=== PATIENT | female | born 1950 | race Caucasian/White ===

== ENCOUNTER 2020-07-10 09:08 | Outpatient (CLI) | payer MEDICARE, SELFPAY ==
--- NOTE | 2020-07-10 09:41 | ECG_ITS ---
Measurements Intervals [place] Rate: 68 P: 86 VA: 148 QRS: 84 QRSD: 97 T: 69 QT: 409 QTc: 435 Interpretive Statements SINUS RHYTHM INCOMPLETE RIGHT BUNDLE BRANCH BLOCK BASELINE ARTIFACT- II, III BORDERLINE ECG Electronically Signed On 07-10-2020 10:03:17 CDT by Chaparro Salcedo D.O.
== END 2020-07-10 09:09 | disposition home or self-care (01) ==
PROVIDERS: PCP Family Medicine; Visit Provider Family Medicine
DX: R07.89 Other chest pain (principal)
CPT/HCPCS: 93005

== ENCOUNTER 2022-04-15 18:04 | Emergency (ER) | payer MEDICARE, SELFPAY ==
--- NOTE | ~2022-04-15 | CT_ITS ---
EXAMINATION: CT abdomen pelvis wo con DATE: 04/15/2022 19:14 INDICATION: urinary pain, flank pain TECHNIQUE: Computed tomography (CT) of the abdomen and pelvis was performed without intravenous contr ast. Automated exposure control and iterative reconstruction technique were employed. The dose-length product was 158.80 mGy-cm. COMPARISON: 07/06/2008. FINDINGS: Lower thorax: Senescent and emphysematous changes in the lungs. Coronary artery calcifications/stenti ng. Liver: Normal. Biliary/Gallbladder: Gallbladder is absent. No bile duct dilation. Pancreas: No mass or duct dilation. Spleen: Normal. Adrenals:Left adrenal adenoma. Kidneys: Left renal atrophy, with nonobstructive calcification. Right kidney is normal. GI tract: No small or large bowel dilation. Appendix not visualized. Diverticulosis without diverticu litis. Mesentery/Peritoneum: No ascites, mass, or free air. Paucity of abdominal fat. Retroperitoneum: No mass. Severe atherosclerotic calcification of the abdomen including likely severe stenosis in the proximal abdominal aorta. Aortobifemoral grafts. Pelvis: No bladder wall thickening. Uterus is absent or atrophic. Distal ureters could not be traced in their entirety. Soft Tissues: Induration and skin thinning posterior the sacrum, otherwise the soft tissues tissues a nd body wall unremarkable. Bones: Vertebral body cement at L3. Lumbar scoliosis. Multilevel osteoporotic type endplate deformit ies and severe degenerative changes in the lumbar spine. IMPRESSION: Likely severe proximal aortic atherosclerotic stenosis. No definite evidence of obstructive uropathy, however the distal ureters could not be traced in their entirety and there are multiple confounding pelvic vascular calcifications. Appendix not visualized, correlate with history of appendectomy. Possible sacral decubitus ulcer. Reviewed, dictated and finalized at location K. IMPRESSION: Likely severe proximal aortic atherosclerotic stenosis. No definite evidence of obstructive uropathy, however the distal ureters could not be traced in their entirety and there are multiple confounding pelvic vascu lar calcifications. Appendix not visualized, correlate with history of appendec quyen. Possible sacral decubitus ulcer.
[2022-04-15 18:08] VITALS: BP 144/85; PULSE 101; RESP 18; TEMP 36.4; O2SAT 100
[2022-04-15 18:28] LABS: Appearance Urine Clear (Clear); Bilirubin Urine Negative (Negative); Blood Urine 1+ (Negative); Color Urine Yellow (Yellow); Glucose Urine UA Negative (Negative); Ketones Urine Negative (Negative); Leukocyte Esterase Ur 1+ LEU/UL (Negative); Nitrate Urine Negative (Negative); Protein Urine Negative (Negative); Urobilinogen Urine 0.2 mg/dL (<2.0); pH Urine 5.5 (5.0-9.0)
[2022-04-15 18:33] LABS: Squamous Epithelial Cell Urine Rare /hpf (Few)
[2022-04-15 18:34] LABS: Add Urine Microscopic? YES
--- NOTE | 2022-04-15 19:00 | ED.FEMALEGU ---
HPI - Female Genitourinary General Chief complaint: Urogenital-Female Stated complaint: back pain/increased urination Time Seen by Provider: 04/15/22 18:54 History of Present Illness HPI Narrative: 71-year-old female presenting to the emergency department for evaluation of increased urinary frequency and some urinary burning. Patient was diagnosed with a urinary tract infection approximately 2 weeks ago and on Friday completed her antibiotic. Patient is unsure of what antibiotic she was taking. Patient does report some associated nausea. Patient denies any flank pain. Patient denies any chest pain or shortness of breath. Related Data Home Medications Medication Instructions Recorded Confirmed calcium citrate 200 mg (950 mg) 200 mg PO DAILY 09/28/19 01/15/22 tablet multivit with 1 tablet PO DAILY 09/28/19 01/15/22 bofpuaij-[id number]-AI-lutein 8 mg iron-400 mcg-300 mcg tablet (Centrum Silver Women) Allergies Allergy/AdvReac Type Severity Reaction Status Date / Time No Known Allergies Allergy Mild Verified 04/15/22 19:02 Review of Systems Review of Systems: CONSTITUTIONAL: Denies fever, chills, or sweats. EYES: Denies visual changes, redness, or discharge. ENT: Denies rhinorrhea, congestion, sore throat, or otalgia. CARDIOVASCULAR: Denies chest pain, palpitations, or edema. RESPIRATORY: Denies cough or dyspnea. GASTROINTESTINAL: Denies abdominal pain, nausea, vomiting, or diarrhea. GENITOURINARY: See HPI SKIN: Denies rash or itching. MUSCULOSKELETAL: Denies back pain, joint pain, or myalgia. NEUROLOGIC: Denies headache, numbness, or weakness. [facility] Past Medical History Medical History (Updated 04/16/22 @ 00:00 by Background Daemon) Abnormal fasting glucose Acute non-recurrent maxillary sinusitis Atypical chest pain GERD (gastroesophageal reflux disease) Insomnia Microscopic hematuria Mixed hyperlipidemia Poison alivia dermatitis Rhinitis Underweight due to inadequate caloric intake UTI (urinary tract infection) Family History Family History Father Family history of cardiovascular disease, Onset Age: 70 Mother Family history of malignant neoplasm, Onset Age: 60 Grandparent Family history of malignant neoplasm Social History Social History Smoking packs per day: 0.5 Smoking cigarettes per day: 10.0 Years smoked: 50 Smoking pack-years: 25.00 Smoking status: Current every day smoker Alcohol intake: never Substance use: never Substance use type: does not use Exam Narrative: APPEARANCE: Well appearing, no pain, no distress, well-nourished. HEAD: normocephalic, atraumatic. EYES: PERRLA/EOMI, conjunctivae clear. NOSE: Normal no drainage NECK: Supple. No adenopathy, no masses. RESPIRATORY: Airway patent, respirations nonlabored. Clear to auscultation bilaterally, no rales, rhonchi, wheezing. CARDIOVASCULAR: Regular rate and rhythm without murmurs rubs or gallops. ABDOMINAL: Soft, nontender, nondistended, normal bowel sounds MUSCULOSKELETAL: Moves all extremities. Strength/ROM intact, No edema, No calf tenderness. NEURO: Alert. Cranial nerves II through XII intact. Grossly intact SKIN: Warm, dry. Normal Color Course Course Emergency Course: Patient's daughter called the pharmacy and did confirm patient had been on Macrobid for 1 week from 04/05-04/12. Patient was treated with 1 g of IV Rocephin and was transitioned to Keflex for discharge home. Patient and family were updated on the results of the work-up and plan for treatment. All questions and concerns were addressed. Patient was well-appearing at time of discharge from the emergency department. CT scan showed no ureteral calculi. Patient's abdomen is soft and nontender, no concern for acute appendicitis at this time. Vital Signs Vital signs: Vital Signs Temperature 97.6 F 04/15/22 18:0
[2022-04-15 19:14] LABS: Basophils Percent Auto 0.2 % (0.2-1.2); Eosinophils Absolute Auto 0.6 K/mm3 (0-0.3); Eosinophils Percent Auto 6.2 % (0-4.4); Hematocrit 36.3 % (37.0-47.0); Hemoglobin 11.2 g/dL (12.0-15.0); Immature Granulocyte Absolute 0.04 K/mm3 (0.00-0.031); Immature Granulocyte Percent A 0.4 % (0-0.5); Lymphocytes Absolute Auto 2.35 K/mm3 (0.9-3.2); Lymphocytes Percent Auto 24.7 % (18.3-44.2); Mean Corpuscular HGB Conc 30.9 g/dl (32-36); Mean Corpuscular Hemoglobin 31.6 pg (26-34); Mean Corpuscular Volume 102.5 fl (80-100); Mean Platelet Volume 8.6 fl (7.4-10.4); Monocytes Absolute Auto 0.8 K/mm3 (0.1-0.6); Monocytes Percent Auto 8.1 % (2.6-8.5); Neutrophils Absolute Auto 5.7 K/mm3 (1.3-6.7); Neutrophils Percent Auto 60.4 % (45.5-73.1); Platelet Count Result 435 k/mm3 (150-375); Red Blood Count 3.54 M/mm3 (4.2-5.4); Red Cell Distribution Width 13.1 % (11.5-14.5); White Blood Count 9.5 K/mm3 (4.5-10.0)
[2022-04-15 19:25] LABS: Alanine Aminotransferase 19 U/L (6-35); Albumin Level 4.5 g/dL (3.5-5.1); Alkaline Phosphatase 146 U/L (38-126); Anion Gap 10 mmol/L (8-16); Aspartate Amino Transferase 25 U/L (14-36); Bilirubin,Total < 0.1 mg/dL (0.2-1.3); Blood Urea Nitrogen 29 mg/dL (7-17); Calcium 10.1 mg/dL (8.4-10.2); Carbon Dioxide 20 mmol/L (22-30); Chloride 110 mmol/L (98-107); Estimated CRCL calculation 34 ml/min; Estimated Glomerular Filt Rate > 60; Glucose 113 mg/dL (65-110); Potassium 4.3 mmol/L (3.4-5.0); Sodium 140 mmol/L (137-145)
[2022-04-15 20:51] VITALS: BP 114/70; PULSE 72; RESP 18; O2SAT 100
== END 2022-04-15 20:53 | disposition home or self-care (01) ==
PROVIDERS: Emergency Medicine; Emergency Provider Emergency Medicine; PCP Family Medicine
DX: N39.0 Urinary tract infection, site not specified (principal); E78.2 Mixed hyperlipidemia; K21.9 Gastro-esophageal reflux disease without esophagitis; R63.6 Underweight; Z68.1 Body mass index [BMI] 19.9 or less, adult; F17.210 Nicotine dependence, cigarettes, uncomplicated
CPT/HCPCS: 36415; 74176; 80053; 81001; 83605; 85025; 87086; 87088; 96365; 99284; J0696

== ENCOUNTER 2023-12-03 12:12 | Outpatient (CLI) | payer MEDICARE, SELFPAY ==
--- NOTE | 2023-12-03 12:38 | ECG_ITS ---
Measurements Intervals [place] Rate: 95 P: 83 ME: 131 QRS: 79 QRSD: 89 T: 56 QT: 352 QTc: 443 Interpretive Statements SINUS RHYTHM WITH SINUS ARRHYTHMIA RIGHT ATRIAL ENLARGEMENT [0.3mV P WAVE] LEFT ATRIAL ENLARGEMENT [-0.15mV P WAVE IN V1/V2] INCOMPLETE RIGHT BUNDLE BRANCH BLOCK COMPARED TO ECG 07/10/2020 09:51:23 SINUS ARRHYTHMIA NOW PRESENT Electronically Signed On 12-03-2023 15:38:28 [employer] by Kathy Pollock M.D.
[2023-12-03 12:43] LABS: Basophils Percent Auto 0.3 % (0.2-1.2); Eosinophils Percent Auto 0.3 % (0-4.4); Hematocrit 38.5 % (37.0-47.0); Hemoglobin 11.9 g/dL (12.0-15.0); Immature Granulocyte Absolute 0.03 K/mm3 (0.00-0.031); Immature Granulocyte Percent A 0.3 % (0-0.5); Lymphocytes Absolute Auto 1.48 K/mm3 (0.9-3.2); Lymphocytes Percent Auto 17.2 % (18.3-44.2); Mean Corpuscular HGB Conc 30.9 g/dl (32-36); Mean Corpuscular Hemoglobin 30.5 pg (26-34); Mean Corpuscular Volume 98.7 fl (80-100); Mean Platelet Volume 8.4 fl (7.4-10.4); Monocytes Absolute Auto 0.4 K/mm3 (0.1-0.6); Monocytes Percent Auto 5.1 % (2.6-8.5); Neutrophils Absolute Auto 6.6 K/mm3 (1.3-6.7); Neutrophils Percent Auto 76.8 % (45.5-73.1); Platelet Count Result 523 k/mm3 (150-375); Red Cell Distribution Width 14.1 % (11.5-14.5); White Blood Count 8.6 K/mm3 (4.5-10.0)
[2023-12-03 12:50] LABS: Appearance Urine Clear (Clear); Bacteria Urine None Seen /hpf; Bilirubin Urine Negative (Negative); Blood Urine Negative (Negative); Color Urine Yellow (Yellow); Glucose Urine UA Negative (Negative); Ketones Urine Negative (Negative); Leukocyte Esterase Ur Negative LEU/UL (NEGATIVE); Nitrate Urine Negative (Negative); Non Pathogenic Casts 0-2; Protein Urine 1+ mg/dL (Negative); Specific Grav Ur 1.017 (1.001-1.035); Squamous Epithelial Cell Urine None seen /hpf (Few); Urobilinogen Urine 0.2 mg/dL (<2.0); WBC Urine 0-5 /hpf (0-3); pH Urine 5.5 (5.0-9.0)
[2023-12-03 12:55] LABS: Alanine Aminotransferase 17 U/L (6-35); Albumin Level 3.9 g/dL (3.5-5.1); Alkaline Phosphatase 142 U/L (38-126); Anion Gap 8 mmol/L (8-16); Aspartate Amino Transferase 25 U/L (14-36); Bilirubin,Total 0.3 mg/dL (0.2-1.3); Blood Urea Nitrogen 14 mg/dL (7-17); Calcium 9.8 mg/dL (8.4-10.2); Carbon Dioxide 25 mmol/L (22-30); Chloride 104 mmol/L (98-107); Cholesterol 186 mg/dL (0-200); Estimated Glomerular Filt Rate > 60; Glucose 104 mg/dL (65-110); HDL Direct 40 mg/dL; Magnesium 1.9 mg/dL (1.6-2.3); Potassium 4.3 mmol/L (3.4-5.0); Sodium 137 mmol/L (137-145); Triglycerides 146 mg/dL (<150)
[2023-12-03 13:04] LABS: Add Urine Microscopic? YES
[2023-12-03 13:08] LABS: LDL Cholesterol Direct 92 mg/dL
[2023-12-03 13:11] LABS: Iron 43 ug/dL (37-170)
[2023-12-03 13:22] LABS: Percent Iron Saturation 17 % (20-50)
[2023-12-03 13:27] LABS: Free T4 Free Thyroxine 1.21 ng/mL (0.78-2.19)
[2023-12-03 13:28] LABS: Total Triiodothyronine (T3) 1.21 NG/ML (0.97-1.69)
[2023-12-03 14:05] LABS: Folic Acid > 20.0 ng/mL (2.76->20)
[2023-12-03 14:55] LABS: Hemoglobin A1C 5.7 % (<5.7)
== END 2023-12-03 12:13 | disposition home or self-care (01) ==
PROVIDERS: PCP Family Medicine; Visit Provider Family Medicine
DX: R93.1 Abnormal findings on diagnostic imaging of heart and coronary circulation (principal); I49.9 Cardiac arrhythmia, unspecified; I45.10 Unspecified right bundle-branch block; R73.01 Impaired fasting glucose; D64.9 Anemia, unspecified; R31.29 Other microscopic hematuria; E78.2 Mixed hyperlipidemia
CPT/HCPCS: 36415; 80048; 80061; 80076; 81001; 82607; 82728; 82746; 83036; 83540; 83550; 83735; 84439; 84443; 84480; 85025; 87086; 93005

== ENCOUNTER 2024-07-19 15:36 | Emergency (ER) | payer MEDICARE, SELFPAY ==
[2024-07-19 15:44] VITALS: BP 172/76; PULSE 111; RESP 20; TEMP 36.6; O2SAT 99
[2024-07-19 16:27] VITALS: BP 172/93; PULSE 87; RESP 21; O2SAT 100
[2024-07-19 17:01] LABS: Basophils Percent Auto 0.2 % (0.2-1.2); Eosinophils Percent Auto 0.2 % (0-4.4); Hematocrit 39.9 % (37.0-47.0); Hemoglobin 12.6 g/dL (12.0-15.0); Immature Granulocyte Absolute 0.03 K/mm3 (0.00-0.031); Immature Granulocyte Percent A 0.3 % (0-0.5); Lymphocytes Absolute Auto 1.16 K/mm3 (0.9-3.2); Lymphocytes Percent Auto 11.8 % (18.3-44.2); Mean Corpuscular HGB Conc 31.6 g/dl (32-36); Mean Corpuscular Hemoglobin 31.1 pg (26-34); Mean Corpuscular Volume 98.5 fl (80-100); Mean Platelet Volume 8.9 fl (7.4-10.4); Monocytes Absolute Auto 0.5 K/mm3 (0.1-0.6); Monocytes Percent Auto 5.3 % (2.6-8.5); Neutrophils Absolute Auto 8.1 K/mm3 (1.3-6.7); Neutrophils Percent Auto 82.2 % (45.5-73.1); Platelet Count Result 363 k/mm3 (150-375); Red Blood Count 4.05 M/mm3 (4.2-5.4); Red Cell Distribution Width 12.5 % (11.5-14.5); White Blood Count 9.8 K/mm3 (4.5-10.0)
[2024-07-19 17:15] LABS: Alanine Aminotransferase 18 U/L (6-35); Albumin Level 4.5 g/dL (3.5-5.1); Alkaline Phosphatase 117 U/L (38-126); Anion Gap 12 mmol/L (4-12); Aspartate Amino Transferase 27 U/L (14-36); Bilirubin,Total 0.1 mg/dL (0.2-1.3); Blood Urea Nitrogen 18 mg/dL (7-17); Carbon Dioxide 22 mmol/L (22-30); Chloride 105 mmol/L (98-107); Estimated CRCL calculation 43 ml/min; Estimated Glomerular Filt Rate > 60; Glucose 117 mg/dL (65-110); Potassium 4.5 mmol/L (3.4-5.0); Sodium 139 mmol/L (137-145)
--- NOTE | 2024-07-19 17:46 | ED.GENADULT ---
HPI - General Adult General Chief complaint: Urogenital-Female Stated complaint: increased urinary freq since 07/16, dizzy Time Seen by Provider: 07/19/24 16:24 Source: patient Mode of arrival: ambulatory Limitations: no limitations History of Present Illness HPI narrative: This is a 74-year-old female, with past medical history of hypertension abdominal aortic atherosclerosis and GERD, who presents emergency department complaining of vertigo. The patient states this is been going on for the past 4 days. This is associated with upper respiratory congestion and popping sensations in the right ear. She denies associated ringing in the ears or loss of hearing. She states the vertigo occurs with sitting up or rapid change in head position. She denies weakness, numbness, change/loss of vision, chest pain or shortness of breath. She also complains of difficulty with urination. She has no other complaints at this time. Related Data Home Medications Medication Instructions Recorded Confirmed calcium citrate 200 mg (950 mg) 200 mg PO DAILY 09/28/19 05/19/24 tablet chnswmnh-cfhh-nfli 8 mg-folic 400 1 tablet PO DAILY 09/28/19 05/19/24 mcg-K 50 mcg-lutein 300 mcg tablet (Centrum Silver Women) Allergies Allergy/AdvReac Type Severity Reaction Status Date / Time No Known Allergies Allergy Mild Verified 07/19/24 15:37 Review of Systems Review of Systems: All systems reviewed & are unremarkable except as noted in HPI and below PMFSH Past Medical History Medical History Abdominal aortic atherosclerosis (~2021) severe proximal aortic atherosclerotic disease with stenosis on CT of the abdomen ER 04/15/2022. Abnormal fasting glucose Fasting glucose 102 with hemoglobin A1c 4.8 on 04/04/2022. Fasting glucose 104 on 12/03/2023. Acute non-recurrent maxillary sinusitis Anemia hemoglobin 11.4 on 04/04/2022. Hemoglobin 11.3 on 04/15/2022. Vitamin B12 was 1200 with folic acid greater than 24 and iron 47. hemoglobin 11.9 with iron 43 on 12/03/2023. Arrhythmia (~12/03/23) irregularly irregular rhythm on 12/03/2023. Atypical chest pain Chronic depression GERD (gastroesophageal reflux disease) Insomnia Microscopic hematuria Mixed hyperlipidemia Total cholesterol 166, HDL 40, triglycerides 146 and LDL 101 with AST 19 and ALT 13 on 04/04/2022 with thyroid function normal with TSH 1.98 and free T4 1.3. Total cholesterol 186 with triglycerides 146 and HDL 40 on 12/03/2023. Peripheral vascular disease of lower extremity (~2007) history of stents distal aorta to the common iliac bilaterally 11/09/2007. Poison alivia dermatitis Rhinitis Sinus arrhythmia (~12/03/23) no atrial fibrillation on EKG 12/03/2023. Sinus rhythm with sinus arrhythmia. Underweight due to inadequate caloric intake UTI (urinary tract infection) Family History Family History Father Family history of cardiovascular disease, Onset Age: 70 Mother Family history of malignant neoplasm, Onset Age: 60 Grandparent Family history of malignant neoplasm Social History Social History Smoking packs per day: 0.5 Smoking cigarettes per day: 10.0 Years smoked: 50 Smoking pack-years: 25.00 Smoking status: Current every day smoker Alcohol intake: never Substance use: never Substance use type: does not use Current Housing: Decline to Answer Concerned About Future Housing: Decline to Answer Difficulty Paying Gas/Electric Bills: Decline to Answer Difficulty Paying for Meds: Decline to Answer Currently Unemployed: Decline to Answer Education: Decline to Answer Difficulty w/ Childcare or Family Care: Decline to Answer Exam Narrative: GENERAL: Well-developed, well-nourished, and in no acute distress. HEAD: Normocephalic, atraumatic. EYES: PERRLA and EOMI.
[2024-07-19] MEDS: MECLIZINE HCL 25 MG TABLET 50 MG PO (18:02)
[2024-07-19 18:03] LABS: Add Urine Microscopic? YES; Appearance Urine Clear (Clear); Bacteria Urine None Seen /hpf; Bilirubin Urine Negative (Negative); Blood Urine 1+ (Negative); Color Urine Yellow (Yellow); Glucose Urine UA Negative (Negative); Ketones Urine Negative (Negative); Leukocyte Esterase Ur Negative LEU/UL (Negative); Nitrate Urine Negative (Negative); Non Pathogenic Casts 0-2; Protein Urine 1+ mg/dL (Negative); Specific Grav Ur 1.011 (1.001-1.035); Squamous Epithelial Cell Urine None Seen /hpf (Few); Urobilinogen Urine 0.2 mg/dL (<2.0); WBC Urine 0-5 /hpf (0-3)
[2024-07-19 18:57] VITALS: BP 164/87; PULSE 82; RESP 18; TEMP 36.7; O2SAT 100
== END 2024-07-19 18:41 | disposition home or self-care (01) ==
PROVIDERS: Physician Assistant; Emergency Provider Preventive Medicine Aerospace Medicine; PCP Family Medicine
DX: J06.9 Acute upper respiratory infection, unspecified (principal); B34.9 Viral infection, unspecified; H81.10 Benign paroxysmal vertigo, unspecified ear; F17.210 Nicotine dependence, cigarettes, uncomplicated; I25.10 Atherosclerotic heart disease of native coronary artery without angina pectoris; D64.9 Anemia, unspecified; F32.A Depression, unspecified; K21.9 Gastro-esophageal reflux disease without esophagitis; E78.5 Hyperlipidemia, unspecified
CPT/HCPCS: 36415; 80053; 81001; 85025; 99283; A9270

== ENCOUNTER 2024-09-21 12:51 | Observation (INO) | payer MEDICARE, SELFPAY ==
[2024-09-21] VITALS (7 sets, daily range): BP systolic 113–143; BP diastolic 64–76; PULSE 81–95; RESP 16–20; TEMP 36.4–36.9; O2SAT 95–100; BMI 15.7
--- NOTE | ~2024-09-21 | CT_ITS ---
CT abdomen pelvis w con Ordering provider: Magdiel Quach MD History: 74 years Female with . left mid abdominal pain . Comparison: April 15, 2022 Technique: CT abdomen and pelvis with IV and without oral contrast. Automated exposure control and it erative reconstruction technique were employed. The dose-length product was 160.14 mGy-cm. 100 mL Omn ipaque 350 was given IV. The The Findings: VISUALIZED LOWER CHEST: Emphysematous changes. UPPER ABDOMINAL ORGANS: Liver: Normal. Gallbladder: Status post cholecystectomy. Spleen: Normal. Stomach/duodenum: Normal. Pancreas: Atrophic changes. Slight dilatation of the proximal pancreatic duct. Adrenals: Adenoma seen in the left adrenal gland measuring 2.6 x 1.8 cm. Kidneys: Atrophic left kidney with small stone is seen inferiorly. PELVIC ORGANS: The bladder is normal. Uterus: Normal. BOWEL AND MESENTERY: Colon: No evidence of diverticulitis. Fecal material is loaded in small bowel loops in the left side of the abdomen with thickened wall suggestive of colitis or enteritis. Ischemic changes cannot be exc luded. Appendix is not well demonstrated. Small Bowel: Normal. No obstruction. Peritoneum/mesentery: No free air or free fluid. No mesenteric lymphadenopathy. RETROPERITONEUM: Severe atherosclerotic changes with occlusion of the infrarenal aorta. Atherosclero tic changes at the origin of the renal artery on the right side is also noted. Stents are seen in the right and left iliac arteries.. No retroperitoneal lymphadenopathy. MUSCULOSKELETAL: Superficial soft tissues: The superficial soft tissues are normal. Bones: Age appropriate degenerative changes of the spine. Bilateral sacroiliacs. Levoscoliosis. Verte broplasty in L3. Compression fracture most likely old seen in L4 and L1. Atrophic psoas muscles is no vinny. IMPRESSION: 1. No flow seen in the aorta suggestive of occlusion below the renal arteries. 2. Fecal material loaded in the bowel in the left side of the abdomen most likely in the colon with thickened wall which may indicate colitis. Ischemia cannot be excluded. Clinical correlation and foll ow-up advised. 3. Atrophic left kidney. 4. Adrenal mass in the left adrenal gland. Further evaluation with CT adrenal protocol or MRI is adv ised. Physician: Magdiel Quach MD was notified with the result of the patient at 4:57 PM on August [id number] Reviewed, dictated and finalized at location A. [employer] IMPRESSION: 1. No flow seen in the aorta suggestive of occlusion below the renal arteries. 2. Fecal material loaded in the bowel in the left side of the abdomen most lik nell in the colon with thickened wall which may indicate colitis. Ischemia canno t be excluded. Clinical correlation and follow-up advised. 3. Atrophic left kidney. 4. Adrenal mass in the left adrenal gland. Further evaluation with CT adrenal protocol or MRI is advised. Physician: Magdiel Quach MD was notified with the result of the patient at 4:57 PM on September 21, 2024
--- NOTE | ~2024-09-21 | XR_ITS ---
EXAMINATION: XR enema water soluble DATE: 09/22/2024 11:25 INDICATION: Stool impaction. TECHNIQUE: A scada operator radiograph was obtained. A catheter was inserted into the patient's rectum. Contra st was infused by gravity. Fluoroscopic spot images and conventional radiographs were obtained. Fluor oscopy exposure time was 0.3 minutes. The total number of images was 20. COMPARISON: CT abdomen and pelvis 09/21/2024 FINDINGS: There is a large volume of stool in the descending and transverse colon, which are distende d. The sigmoid colon is decompressed. There is no stricture. There are stents in the common iliac art eries. There are changes of vertebroplasty at one level. Surgical clips in the right upper quadrant a re likely from cholecystectomy. IMPRESSION: 1. Large volume of stool in the descending and transverse colon with distention of the colon. No stri cture. Reviewed, dictated and finalized at location A. KISS SETTER IMPRESSION: 1. Large volume of stool in the descending and transverse colon with distention of the colon. No stricture.
[2024-09-21] MEDS: SODIUM CHLORIDE 0.9% IV 1,000 ML 999 ML IV CONT (15:10)
[2024-09-21] MEDS: METHYLNALTREXONE 12 MG/0.6 ML VIAL SUB-Q (15:13)
[2024-09-21 15:29] LABS: Basophils Percent Auto 0.2 % (0.2-1.2); Eosinophils Percent Auto 0.2 % (0-4.4); Hemoglobin 12.2 g/dL (12.0-15.0); Immature Granulocyte Percent A 0.6 % (0-0.5); Lymphocytes Absolute Auto 1.62 K/mm3 (0.9-3.2); Lymphocytes Percent Auto 9.2 % (18.3-44.2); Mean Corpuscular Hemoglobin 31.7 pg (26-34); Mean Corpuscular Volume 96.1 fl (80-100); Mean Platelet Volume 8.8 fl (7.4-10.4); Monocytes Absolute Auto 1.3 K/mm3 (0.1-0.6); Monocytes Percent Auto 7.2 % (2.6-8.5); Neutrophils Absolute Auto 14.5 K/mm3 (1.3-6.7); Neutrophils Percent Auto 82.6 % (45.5-73.1); Platelet Count Result 528 k/mm3 (150-375); Red Blood Count 3.85 M/mm3 (4.2-5.4); White Blood Count 17.6 K/mm3 (4.5-10.0)
[2024-09-21 15:39] LABS: Alanine Aminotransferase 11 U/L (6-35); Alkaline Phosphatase 136 U/L (38-126); Anion Gap 9 mmol/L (4-12); Aspartate Amino Transferase 24 U/L (14-36); Bilirubin,Total 0.6 mg/dL (0.2-1.3); Blood Urea Nitrogen 23 mg/dL (7-17); Calcium 9.4 mg/dL (8.4-10.2); Carbon Dioxide 21 mmol/L (22-30); Chloride 107 mmol/L (98-107); Estimated CRCL calculation 38 ml/min; Estimated Glomerular Filt Rate > 60; Glucose 105 mg/dL (65-110); Lipase 86 U/L (23-300); Potassium 3.8 mmol/L (3.4-5.0); Sodium 137 mmol/L (137-145)
[2024-09-21] MEDS: MORPHINE SULFATE (*CRX) 4 MG/ML INJ IV PUSH ×2 (17:23→23:06)
--- NOTE | 2024-09-21 17:23 | ED.GENADULT ---
HPI - General Adult General Chief complaint: Abdominal Pain Stated complaint: constipation, abd pain Time Seen by Provider: 09/21/24 13:50 History of Present Illness HPI narrative: Patient is a 74-year-old female who presents ER with reports of abdominal pain. Left-sided and sharp. Worse with movement. Associated with the fact that she has not had a bowel movement in 20 days. she has been able to pass gas. She is not vomiting but has discomfort when she eats. She takes oxycodone chronically for chronic back pain. She has tried stool softeners without improvement. patient has been inserting her fingers and her bottom to self evacuate stool without success. Related Data Home Medications Medication Instructions Recorded Confirmed calcium citrate 200 mg PO DAILY 09/28/19 09/21/24 wijmsdpp-qbwh-bqxg 8 mg-folic 400 1 tablet PO DAILY 09/28/19 09/21/24 mcg-K 50 mcg-lutein 300 mcg tablet (Centrum Silver Women) Allergies Allergy/AdvReac Type Severity Reaction Status Date / Time No Known Allergies Allergy Mild Verified 09/21/24 17:24 Review of Systems Review of Systems: All systems reviewed & are unremarkable except as noted in HPI and below Constitutional: Constitutional: Reports no additional constitutional complaints ENT: Reports system reviewed and no additional complaints, except as documented Cardiovascular: Cardiovascular: Reports no additional cardiovascular complaints Respiratory: Respiratory: Reports no additional respiratory complaints Gastrointestinal: Gastrointestinal: Reports abdominal pain, Reports constipation, Denies nausea and Denies vomiting Musculoskeletal: Musculoskeletal: Reports no additional musculoskeletal complaints [facility] Past Medical History Medical History (Updated 09/21/24 @ 20:44 by Kate Gupta DO) Abdominal aortic atherosclerosis (~2021) severe proximal aortic atherosclerotic disease with stenosis on CT of the abdomen ER 04/15/2022. Abnormal fasting glucose Fasting glucose 102 with hemoglobin A1c 4.8 on 04/04/2022. Fasting glucose 104 on 12/03/2023. Age-related osteoporosis without current pathological fracture Anemia hemoglobin 11.4 on 04/04/2022. Hemoglobin 11.3 on 04/15/2022. Vitamin B12 was 1200 with folic acid greater than 24 and iron 47. hemoglobin 11.9 with iron 43 on 12/03/2023. Arrhythmia (~12/03/23) irregularly irregular rhythm on 12/03/2023. Chronic bilateral low back pain Chronic depression Chronic obstructive pulmonary disease, unspecified Essential hypertension GERD (gastroesophageal reflux disease) Insomnia Microscopic hematuria Mixed hyperlipidemia Total cholesterol 166, HDL 40, triglycerides 146 and LDL 101 with AST 19 and ALT 13 on 04/04/2022 with thyroid function normal with TSH 1.98 and free T4 1.3. Total cholesterol 186 with triglycerides 146 and HDL 40 on 12/03/2023. Peripheral vascular disease of lower extremity (~2007) history of stents distal aorta to the common iliac bilaterally 11/09/2007. Rhinitis Sinus arrhythmia (~12/03/23) no atrial fibrillation on EKG 12/03/2023. Sinus rhythm with sinus arrhythmia. Sinusitis Underweight due to inadequate caloric intake UTI (urinary tract infection) Vertigo Surgical History Surgical History (Updated 09/21/24 @ 20:42 by Kate Gupta DO) Hx of cholecystectomy S/P peripheral artery angioplasty with stent placement Family History Family History Father Family history of cardiovascular disease, Onset Age: 70 Mother Family history of malignant neoplasm, Onset Age: 60 Grandparent Family history of malignant neoplasm Social History Social History Smoking packs per day: 0.5 Smoking cigarettes per day: 10.0 Years smoked: 60 Smoking pack-years: 30.00 Smoking status: Current every day smoker Alcohol intake: never Substance use: never Substance use type: does not use Do You Feel Safe in your Home?: Yes Lack of Transportation: No Lack of Food: Never True Current Housing: Decline to Answer Concerned About Future Housing: Decline to Answer Difficulty Paying Gas/Electric Bills: Decline to Answer Difficulty Paying for Meds: Decline to Answer Currently Unemployed: Decline to Answer Education: Decline to Answer Difficulty w/ Childcare or Family Care: Decline to Answer Spiritual care concerns: No Exam Narrative: GENERAL: Well-appearing, well-nourished, and in no acute distress. HEAD: Normocephalic, atraumatic. ENT: Mucous membranes moist. CHEST: Clear to auscultation. No respiratory distress. HEART: Regular rate and rhythm. Normal central pulses. ABDOMEN: Soft, tender to palpation left mid abdomen with guarding, nondistended. EXTREMITIES: Normal range of motion. No edema. bilateral PT and left DP pulses Doppler it. Difficulty finding right DP. SKIN: Warm, dry, no rash. NEURO: Alert and oriented x3. PSYCH: Normal mood and affect. Course Course Emergency Course: Discussed CT scan with general surgery. Patient with chronic known issues to aorta. Patient has flow to lower extremities. This is not an issue at this point. Patient does have some stercoral colitis and significant fecal impaction throughout the left large intestine. Readmit for IV antibiotics, enema, and MiraLax. Vital Signs Vital signs: Vital Signs Temperature 97.6 F 09/21/24 12:52 Pulse Rate 95 09/21/24 12:52 Respiratory Rate 16 09/21/24 12:52 Blood Pressure 113/65 09/21/24 12:52 Pulse Oximetry 100 09/21/24 12:52 Temperature 98.1 F 09/21/24 20:46 Pulse Rate 84 09/21/24 20:46 Respiratory Rate 16 09/21/24 20:46 Blood Pressure 121/64 09/21/24 20:46 Pulse Oximetry 95 09/21/24 20:46 Medical Decision Making Vital Signs Vital Signs: Vital Signs Temperature 97.6 F 09/21/24 12:52 Pulse Rate 95 09/21/24 12:52 Respiratory Rate 16 09/21/24 12:52 Blood Pressure 113/65 09/21/24 12:52 Pulse Oximetry 100 09/21/24 12:52 Temperature 98.1 F 09/21/24 20:46 Pulse Rate 84 09/21/24 20:46 Respiratory Rate 16 09/21/24 20:46 Blood Pressure 121/64 09/21/24 20:46 Pulse Oximetry 95 09/21/24 20:46 Lab Data 09/21/24 15:08 09/21/24 15:08 Labs: Lab Results 09/21/24 Range/Units 15:08 WBC 17.6 H (4.5-10.0) K/mm3 RBC 3.85 L (4.2-5.4) M/mm3 Hgb 12.2 (12.0-15.0) g/dL Hct 37.0 (37.0-47.0) % MCV 96.1 (80-100) fl MCH 31.7 (26-34) pg MCHC 33.0 (32-36) g/dl RDW 13.0 (11.5-14.5) % Plt Count 528 H (150-375) k/mm3 MPV 8.8 (7.4-10.4) fl Immature Gran % (Auto) 0.6 H (0-0.5) % Neut % (Auto) 82.6 H (45.5-73.1) % Lymph % (Auto) 9.2 L (18.3-44.2) % [place] % (Auto) 7.2 (2.6-8.5) % Eos % (Auto) 0.2 (0-4.4) % Baso % (Auto) 0.2 (0.2-1.2) % Lymph # (Auto) 1.62 (0.9-3.2) K/mm3 [place] # (Auto) 1.3 H (0.1-0.6) K/mm3 Eos # (Auto) 0.0 (0-0.3) K/mm3 Baso # (Auto) 0.0 (0.0-0.1) K/mm3 Abs Immat Gran (auto) 0.10 H (0.00-0.031) K/mm3 Absolute Neuts (auto) 14.5 H (1.3-6.7) K/mm3 Absolute Nucleated RBC 0.000 (0.0-0.012) K/mm3 Nucleated RBC % 0.0 (0.0-0.2) % Sodium 137 (137-145) mmol/L Potassium 3.8 (3.4-5.0) mmol/L Chloride 107 (98-107) mmol/L Carbon Dioxide 21 L (22-30) mmol/L Anion Gap 9 (4-12) mmol/L BUN 23 H (7-17) mg/dL Creatinine 0.80 (0.7-1.0) mg/dL Estim Creat Clear Calc 38 ml/min Estimated GFR > 60 (59 - ) Glucose 105 (65-110) mg/dL Calcium 9.4 (8.4-10.2) mg/dL Total Bilirubin 0.6 (0.2-1.3) mg/dL AST 24 (14-36) U/L ALT 11 (6-35) U/L Alkaline Phosphatase 136 H (38-126) U/L Total Protein 8.0 (6.3-8.2) g/dL Albumin 4.0 (3.5-5.1) g/dL Lipase 86 (23-300) U/L Imaging Data Radiologist's impression: ITS Impressions Abdomen/Pelvis CT 09/21/24 16:15 IMPRESSION: 1. No flow seen in the aorta suggestive of occlusion below the renal arteries. 2. Fecal material loaded in the bowel in the left side of the abdomen most likely in the colon with thickened wall which may indicate colitis. Ischemia cannot be excluded. Clinical correlation and follow-up advised. 3. Atrophic left kidney. 4. Adrenal mass in the left adrenal gland. Further evaluation with CT adrenal protocol or MRI is advised. Physician: Magdiel Quach MD was notified with the result of the patient at 4:57 PM on September 21, 2024 Discharge Plan Discharge Clinical Impression: Stercoral colitis, Fecal impaction of colon Patient Disposition: Still a Patient Condition: Stable
[2024-09-21] MEDS: PIPERACILLN/TAZ 3.375GM/NS50ML 3.375 GM/50 ML BAG IVPB (17:24)
[2024-09-21] MEDS: MAGNESIUM CITRATE 300 ML BTL PO (19:10)
[2024-09-21] MEDS: MORPHINE SULFATE (*CRX) 2 MG/ML INJ IV PUSH (19:34)
[2024-09-21] MEDS: ONDANSETRON INJ 4 MG/2 ML VIAL IV PUSH ×2 (19:42→23:18)
--- NOTE | 2024-09-21 20:32 | PM.IMHP ---
H&P: HPI History of Present Illness Date/Time: 09/21/24 20:32 Chief Complaint: Abdominal pain, constipation Narrative: 74-year-old female past medical history of COPD, essential hypertension, protein calorie malnutrition, chronic narcotic dependence due to back pain, chronic tobacco use, peripheral arterial disease status post iliac stents, chronic sinusitis and rhinitis who presented to the ER with constipation and abdominal pain. The patient reported to the ER staff that her last bowel movement was 09/01/2024. The patient reports that she has been having intermittent crampy sharp abdominal pain that feels like gas pains. She states that she last passed flatulence early this morning. She feels like she cannot pass gas CT she cannot get it past the stool. She has had absolutely no stool output since the . She reports that she usually has constipation but it will clear with the use of milk of magnesia and intermittent MiraLax. She usually goes 5-8 days between having bowel movements. However this time despite using MiraLax several times and milk of magnesia as well as Epsom salts she has not had a bowel movement. She did vomit when she tried Epsom salt a couple of days ago. She reports that her abdomen pain has gotten worse despite trying these measures. She has tried Gas-X to relieve her gas pain. In the ER she received a dose of magnesium citrate which she promptly vomited. She also received a dose of Relistor in the ER. She is on narcotics due to chronic back pain. She has been dependent on walking with 2 canes since she fell this past October. She lives in her own home and her daughter has cameras set up in her home to monitor her. She does report that she has been having more pain in her feet and they feel like they are going to sleep more so than the use 2. She reports that the pain is improved when she sits up in puts her feet on the floor. She has been having worsening leg pain that she attributes to her low back pain. The pain actually improves when she stands up in changes position. She has not noticed any specific episodes of claudication. In the ER staff was unable to palpate the patient's pedal and posterior tibial pulses. However at the time my evaluation I was able to obtain Doppler verification of both bilateral pedal and posterior tibial pulses. Posterior tibial pulses were much stronger obviously and the pedal pulse was stronger on the left compared to right. The patient reports chronic low appetite. She does get lightheaded with position changes which she relates to not eating much. Her daughter reports that patient will eat 3 aches and a piece of toast for breakfast. The patient will drink Ensure a couple of times a day. Despite these efforts patient has had a couple lb weight loss between prior doctor's visits. She reports that she has been having difficulty urinating and has to strain to urinate. On CT scan the patient's bladder did appear generous in size. She feels as if she is not emptying her bladder completely. Her urine has been darker than usual. She denies any hematuria, hematochezia or melena. Review of Systems Review of Systems: 12 systems were reviewed with pertinent positives and negatives per HPI. Except as documented in the HPI, all other systems were reviewed and are negative. [facility] Past Medical History Medical History (Updated 09/21/24 @ 20:44 by Kate Gupta, DO) Abdominal aortic atherosclerosis (~2021) severe proximal aortic atherosclerotic disease with stenosis on CT of the abdomen ER 04/15/2022. Abnormal fasting glucose Fasting glucose 102 with hemoglobin A1c 4.8 on 04/04/2022. Fasting glucose 104 on 12/03/2023. Age-related osteoporosis without current pathological fracture Anemia hemoglobin 11.4 on 04/04/2022. Hemoglobin 11.3 on 04/15/2022. Vitamin B12 was 1200 with folic acid greater than 24 and iron 47. hemoglobin 11.9 with iron 43 on 12/03/2023. Arrhythmia (~12/03/23) irregularly irregular rhythm on 12/03/2023. Chronic bilateral low back pain Chronic depression Chronic obstructive pulmonary disease, unspecified Essential hypertension GERD (gastroesophageal reflux disease) Insomnia Microscopic hematuria Mixed hyperlipidemia Total cholesterol 166, HDL 40, triglycerides 146 and LDL 101 with AST 19 and ALT 13 on 04/04/2022 with thyroid function normal with TSH 1.98 and free T4 1.3. Total cholesterol 186 with triglycerides 146 and HDL 40 on 12/03/2023. Peripheral vascular disease of lower extremity (~2007) history of stents distal aorta to the common iliac bilaterally 11/09/2007. Rhinitis Sinus arrhythmia (~12/03/23) no atrial fibrillation on EKG 12/03/2023. Sinus rhythm with sinus arrhythmia. Sinusitis Underweight due to inadequate caloric intake UTI (urinary tract infection) Vertigo Surgical History Surgical History (Updated 09/21/24 @ 22:07 by Kate Gupta DO) Hx of cholecystectomy S/P peripheral artery angioplasty with stent placement The patient had attempt at stent placement our facility in 2006 but was unsuccessful. Evidently patient later had a secondary procedure at another facility but details are not available Family History Family History Father Family history of cardiovascular disease, Onset Age: 70 Mother Family history of malignant neoplasm, Onset Age: 60 Grandparent Family history of malignant neoplasm Social History Social History (Updated 09/21/24 @ 22:09 by Kate Gupta DO) Social History: Patient lives in her own home. She raised 4 children. Her oldest son at age 39 of unknown causes. Her remaining children are in relatively good health. Her daughter Emily at bedside. The patient's has smoked up to a pack of cigarettes per day but has been down to half a pack per day for ?awhile.? She denies any significant history of alcohol use or illicit substance use. She used to work at [employer]. Code status: DNR/DNI (per patient request) Healthcare power of assistant county attorney: Emily Lopez Smoking packs per day: 0.5 Smoking cigarettes per day: 10.0 Years smoked: 60 Smoking pack-years: 30.00 Smoking status: Current every day smoker Alcohol intake: never Substance use: never Substance use type: does not use Do You Feel Safe in your Home?: Yes Lack of Transportation: No Lack of Food: Never True Current Housing: Decline to Answer Concerned About Future Housing: Decline to Answer Difficulty Paying Gas/Electric Bills: Decline to Answer Difficulty Paying for Meds: Decline to Answer Currently Unemployed: Decline to Answer Education: Decline to Answer Difficulty w/ Childcare or Family Care: Decline to Answer Spiritual care concerns: No Meds Home Medications and Allergies Home Medications Medication Instructions Recorded Confirmed Type calcium citrate 200 mg PO DAILY 09/28/19 09/21/24 History [id number] 8 mg-folic 400 1 tablet PO DAILY 09/28/19 09/21/24 History mcg-K 50 mcg-lutein 300 mcg tablet (Centrum Silver Women) fluticasone propionate 50 1 spray intranasal BID #16 grams 05/26/23 09/21/24 Rx mcg/actuation nasal spray,suspension (Flonase Allergy Relief) amitriptyline 75 mg tablet 75 mg PO . q.h.s. #30 tabs 11/03/23 09/21/24 Rx albuterol sulfate 90 mcg/actuation 2 puff inhalation Q4H PRN 05/19/24 09/21/24 Rx aerosol inhaler shortness of breath or wheezing #8.5 grams alprazolam 0.25 mg tablet 0.25 mg PO BID PRN anxiety #30 tabs 05/19/24 09/21/24 Rx lisinopril 5 mg tablet 5 mg PO DAILY #90 tabs 05/19/24 09/21/24 Rx pantoprazole 40 mg tablet,delayed 40 mg PO QAM #90 tabs 05/19/24 09/21/24 Rx release (Protonix) oxycodone-acetaminophen 10 mg-325 1 tablet PO Q4H PRN pain #180 tabs 08/27/24 09/21/24 Rx mg tablet (Percocet) famotidine 20 mg tablet 20 mg PO BID PRN heartburn #60 tabs 09/01/24 09/21/24 Rx gabapentin 100 mg capsule 100 mg PO QHS #90 caps 09/01/24 09/21/24 Rx Allergies Allergy/AdvReac Type Severity Reaction Status Date / Time No Known Allergies Allergy Mild Verified 09/21/24 17:24 Vital Signs Vital Signs - 24 hr 09/21/24 12:52 09/21/24 13:58 09/21/24 16:59 Temperature 97.6 F 98.3 F 98.1 F Pulse Rate 95 84 91 Respiratory Rate 16 20 20 Blood Pressure 113/65 121/72 133/67 Pulse Oximetry 100 100 100 09/21/24 18:33 09/21/24 19:30 09/21/24 19:55 Temperature 98.3 F 98.4 F Pulse Rate 87 84 81 Respiratory Rate 20 20 18 Blood Pressure 119/72 143/76 H 140/70 Pulse Oximetry 100 100 100 Exam Narrative: Weight 40.4 kg BMI 15.8 Const: Other: Frail, cachectic, no acute distress HENMT: Other: Mucous membranes are dry, tongue is erythematous and has deep fissures, edentulous in upper and lower jaw (patient is unable to wear dentures due to ill-fitting), head is normocephalic atraumatic Eyes: Other: Pupils are equal and reactive, no scleral icterus Neck: Other: No thyromegaly, no JVD Resp: Other: Clear to auscultation bilaterally, no increased work of breathing Cardio: Other: Regular rate, regular rhythm, 2+ bilateral radial pulses, weakly palpable left pedal pulse that is thready, pulses verified by Doppler ultrasound both bilateral pedal and posterior tibial GI: Other: Tender in the left lower quadrant and suprapubic region with palpable fullness of underlying structures, hypoactive bowel sounds, no peritoneal signs, nondistended : Other: Continent of urine Skin: Other: Generalized pallor, non jaundice Neuro: Other: Alert oriented x4, speech is clear, no facial asymmetry, no localizing neurologic deficits noted during the course of conversation Extrem: Other: No cyanosis, no edema, generalized muscle wasting, otherwise normal muscle tone, Demetri appearance to the skin of the feet however skin blanches and has 3-4 second cap refill, pulses as documented above Psych: Other: Appropriate mood and affect, pleasant and cooperative, judgment and insight intact H&P: Results Labs Labs: Laboratory Tests 09/21/24 15:08 09/21/24 15:08 09/21/24 15:08 WBC 17.6 H RBC 3.85 L Hgb 12.2 Hct 37.0 MCV 96.1 MCH 31.7 MCHC 33.0 RDW 13.0 Plt Count 528 H MPV 8.8 Immature Gran % (Auto) 0.6 H Neut % (Auto) 82.6 H Lymph % (Auto) 9.2 L Nobles % (Auto) 7.2 Eos % (Auto) 0.2 Baso % (Auto) 0.2 Lymph # (Auto) 1.62 Nobles # (Auto) 1.3 H Eos # (Auto) 0.0 Baso # (Auto) 0.0 Abs Immat Gran (auto) 0.10 H Absolute Neuts (auto) 14.5 H Absolute Nucleated RBC 0.000 Nucleated RBC % 0.0 Sodium 137 Potassium 3.8 Chloride 107 Carbon Dioxide 21 L Anion Gap 9 BUN 23 H Creatinine 0.80 Estim Creat Clear Calc 38 Estimated GFR > 60 Glucose 105 Calcium 9.4 Total Bilirubin 0.6 AST 24 ALT 11 Alkaline Phosphatase 136 H Total Protein 8.0 Albumin 4.0 Lipase 86 Impressions Abdomen/Pelvis CT 09/21/24 16:15 IMPRESSION: 1. No flow seen in the aorta suggestive of occlusion below the renal arteries. 2. Fecal material loaded in the bowel in the left side of the abdomen most likely in the colon with thickened wall which may indicate colitis. Ischemia cannot be excluded. Clinical correlation and follow-up advised. 3. Atrophic left kidney. 4. Adrenal mass in the left adrenal gland. Further evaluation with CT adrenal protocol or MRI is advised. Physician: Magdiel Quach MD was notified with the result of the patient at 4:57 PM on September 21, 2024 Assessment and Plan Assessment and plan (1) Stercoral colitis: Code(s): K52.89 - Other specified noninfective gastroenteritis and colitis Status: Acute (2) Constipation: Qualifiers: Constipation type: drug induced constipation Qualified Code(s): K59.03 - Drug induced constipation Code(s): K59.00 - Constipation, unspecified Status: Acute (3) Abdominal aortic stenosis: Code(s): Q25.1 - Coarctation of aorta Status: Acute (4) Leukocytosis: Qualifiers: Leukocytosis type: unspecified Qualified Code(s): D72.829 - Elevated white blood cell count, unspecified Code(s): D72.829 - Elevated white blood cell count, unspecified Status: Acute (5) Severe protein-calorie malnutrition: Code(s): E43 - Unspecified severe protein-calorie malnutrition Status: Acute Plan Patient has CT findings concerning for colitis either sterocolitis or ischemic. This is complicated by patient's chronic history of narcotic/opiate dependence likely leading to primary cause of constipation. However CT of the abdomen pelvis also demonstrated severe aortic stenosis with no blood flow below the renal arteries. The patient was treated with magnesium citrate, Relistor and Zosyn in the ER. Patient did have associated leukocytosis the will continue antibiotic coverage. Will try to minimize narcotic use. Will continue patient's home amitriptyline and Neurontin. Patient may benefit from Movantik as outpatient. A Fleet's enema was ordered in the ER but had not been administered. Will hold off on enema until morning and then will order Colace enema. Will repeat CBC and electrolyte panel in a.m.. Patient would benefit from dietary supplementation with her chronic severe protein calorie malnutrition. Her outpatient visit from earlier this month indicates that the patient had lost another 2 lb between doctor's visits. Will consult dietitian for recommendations as to nutritional supplements. Will check TSH with a.m. labs. Patient appears clinically dehydrated with dry mucous membranes. Will initiate gentle IV fluids at 75 mL an hour and monitor output. Patient reports difficulty with urination and bladder appeared full on CT scan. Will check postvoid residual. Patient does have a history of COPD but is not having any symptoms of such. Will order albuterol inhaler as needed. Will continue home inhalers. Patient has been admitted as observation status. Quality VTE Prophylaxis VTE prophylaxis: pharmacologic ordered (Heparin 5000 units subQ q.12 hours) Hospitalist [facility] Advance Care Plan I have confirmed that the patient's Advanced Care Plan is present, code status is documented, or surrogate decision maker is listed in patient medical record.: Yes Medication Reconciliation I have utilized all available resources to obtain, update and review the patients current medications (includes all prescriptions, OTC, herbals, cannabis, and nutritional supplements).: Yes
[2024-09-21 21:36] LABS: Lactic Acid Reflex 0.9 mmol/L (0.7-2.0)
[2024-09-21] MEDS: FLUTICASONE PROPIONATE 0.05% NA SPR 16 GM BTL (*BKC) 1 SPRAY NASAL (23:04)
[2024-09-21] MEDS: SODIUM CHLORIDE 0.9% IV 1,000 ML 75 ML IV CONT (23:04)
[2024-09-21] MEDS: polyethylene glycoL 3350 17 GM POWD.PACK PO (23:05)
[2024-09-21] MEDS: GABAPENTIN 100 MG CAPSULE PO (23:09)
[2024-09-21] MEDS: FAMOTIDINE 20 MG TABLET PO (23:09)
[2024-09-21] MEDS: AMITRIPTYLINE HCL 25 MG TABLET 75 MG PO (23:09)
[2024-09-21] MEDS: PIPERACILLIN/TAZ 2.25G/NS 50ML 2.25 GM/50 ML BAG IVPB (23:25)
[2024-09-22 04:33] VITALS: BP 132/73; PULSE 89; RESP 20; TEMP 36.2; O2SAT 99
[2024-09-22] MEDS: ONDANSETRON INJ 4 MG/2 ML VIAL IV PUSH ×2 (04:57→20:06)
[2024-09-22] MEDS: MORPHINE SULFATE (*CRX) 4 MG/ML INJ IV PUSH ×4 (04:57→17:16)
[2024-09-22] MEDS: PIPERACILLIN/TAZ 2.25G/NS 50ML 2.25 GM/50 ML BAG IVPB ×2 (05:39→12:15)
[2024-09-22] MEDS: DOCUSATE SODIUM 400 MG/400 ML ENEMA RECTAL (05:40)
[2024-09-22 05:43] LABS: Basophils Percent Auto 0.3 % (0.2-1.2); Eosinophils Percent Auto 0.3 % (0-4.4); Hematocrit 33.1 % (37.0-47.0); Hemoglobin 10.7 g/dL (12.0-15.0); Immature Granulocyte Absolute 0.06 K/mm3 (0.00-0.031); Immature Granulocyte Percent A 0.4 % (0-0.5); Lymphocytes Percent Auto 10.7 % (18.3-44.2); Mean Corpuscular HGB Conc 32.3 g/dl (32-36); Mean Corpuscular Hemoglobin 31.8 pg (26-34); Mean Corpuscular Volume 98.2 fl (80-100); Mean Platelet Volume 8.9 fl (7.4-10.4); Monocytes Absolute Auto 1.3 K/mm3 (0.1-0.6); Monocytes Percent Auto 8.9 % (2.6-8.5); Neutrophils Absolute Auto 11.9 K/mm3 (1.3-6.7); Neutrophils Percent Auto 79.4 % (45.5-73.1); Platelet Count Result 482 k/mm3 (150-375); Red Blood Count 3.37 M/mm3 (4.2-5.4); Red Cell Distribution Width 13.1 % (11.5-14.5)
[2024-09-22 05:54] LABS: Anion Gap 6 mmol/L (4-12); Blood Urea Nitrogen 15 mg/dL (7-17); Calcium 8.7 mg/dL (8.4-10.2); Carbon Dioxide 24 mmol/L (22-30); Chloride 111 mmol/L (98-107); Estimated CRCL calculation 39 ml/min; Estimated Glomerular Filt Rate > 60; Glucose 86 mg/dL (65-110); Phosphorus 3.2 mg/dL (2.5-4.5); Potassium 4.1 mmol/L (3.4-5.0); Sodium 141 mmol/L (137-145)
--- NOTE | 2024-09-22 07:14 | PM.IMPN ---
Progress Note: A&P Assessment and Plan (1) Stercoral colitis: Code(s): K52.89 - Other specified noninfective gastroenteritis and colitis Status: Acute Assessment and Plan: Patient has CT findings concerning for colitis either sterocolitis or ischemic. This is complicated by patient's chronic history of narcotic/opiate dependence likely leading to primary cause of constipation. Last bowel movement 09/[address] of the abdomen pelvis also demonstrated severe aortic stenosis with no blood flow below the renal arteries. WBC 17.6, lactic normal 0.9 Started on Zosyn--trend WBC Clinically looks dry, started on IVF NS at 75 ml per hour Poor appetite given lack of bowel movement in 3 weeks. Clear liquid diet okay with surgery. (2) Constipation: Qualifiers: Constipation type: drug induced constipation Qualified Code(s): K59.03 - Drug induced constipation Code(s): K59.00 - Constipation, unspecified Status: Acute Assessment and Plan: The patient was treated with magnesium citrate, Relistor and Zosyn in the ER. Will try to minimize narcotic use. Will continue patient's home amitriptyline and Neurontin. Patient may benefit from Movantik as outpatient. Colace enema was order this morning QID miralax Will repeat CBC and electrolyte panel in a.m. general surgery was consulted and recommended GI consult. They have also ordered x-ray with enema water soluble contrast which can be both diagnostic and palliative. They have signed off. Patient reports she has never been on any motility agents like Linzess. She normally has a bowel movement every 3-4 days. She does not normally take a bowel regimen. She did try an over the counter stool softener prior to coming to the hospital. GI consulted for chronic constipation, recs appreciated. (3) Abdominal aortic stenosis: Code(s): Q25.1 - Coarctation of aorta Status: Acute Assessment and Plan: CT abdomen and pelvis showed no flow seen in aorta suggestive of occlusion below the renal arteries. Atrophic left kidney. Adrenal mass in the left adrenal gland-further evaluation advised with CT adrenal protocol vs MRI. (4) Severe protein-calorie malnutrition: Code(s): E43 - Unspecified severe protein-calorie malnutrition Status: Acute Assessment and Plan: Patient would benefit from dietary supplementation with her chronic severe protein calorie malnutrition. Her outpatient visit from earlier this month indicates that the patient had lost another 2 lb between doctor's visits. Will consult dietitian for recommendations as to nutritional supplements. clear liquid diet for now, add ensure when appropriate TSH normal daily weight Subjective Date/time seen: 09/22/24 07:14 Interval history: Patient resting in bed with her daughter at the bedside. Enema this morning did not produce any stool. She says she is not passing flatus and has intermittent nausea with her last episode of vomiting yesterday after taking the Mag citrate. Her gas and abdominal pain is worse after her enema. Review of Systems Review of Systems: All systems reviewed & are unremarkable except as noted in HPI and below Exam Narrative: General: appears comfortable, in no acute distress, thin, muscle wasting Respiratory: breathing is unlabored with even chest rise/fall, lungs are clear without wheezing, rhonchi, and crackles Cardiovascular: Rate and rhythm regular, normal s1s2, no murmur Abdomen: Soft, flat, nondistended, mildly tender with palpation to left upper and left lower quadrant, active bowel sounds Extremities: No cyanosis, edema, clubbing. Pulses 2/2 Neuro: A&O x 4 Skin: Warm, dry, intact Objective Data Vital Signs Vital Signs: Vital Signs - 24 hr 09/21/24 12:52 09/21/24 13:58 09/21/24 16:59 Temperature 97.6 F 98.3 F 98.1 F Pulse Rate 95 84 91 Respiratory Rate 16 20 20 Blood Pressure 113/65 121/72 133/67 Pulse Oximetry 100 100 100 09/21/24 18:33 09/21/24 19:30 09/21/24 19:55 Temperature 98.3 F 98.4 F Pulse Rate 87 84 81 Respiratory Rate 20 20 18 Blood Pressure 119/72 143/76 H 140/70 Pulse Oximetry 100 100 100 09/21/24 20:46 09/22/24 04:33 Temperature 98.1 F 97.1 F L Pulse Rate 84 89 Respiratory Rate 16 20 Blood Pressure 121/64 132/73 Pulse Oximetry 95 99 Intake/Output Intake/Output: Intake & Output 09/19/24 09/20/24 09/21/24 09/22/24 23:59 23:59 23:59 23:59 Intake Total 1050 150 Output Total 250 150 Balance 800 0 Meds/Results Medications: Active Medications Generic Name Dose Route Start Last Admin Trade Name Freq PRN Reason Stop Dose Admin Acetaminophen 650 mg 09/21/24 18:25 Acetaminophen 325 Mg Tablet PO Q4H PRN Mild Pain (1-3) or Fever Albuterol 2 puff 09/21/24 22:11 Albuterol Sulfate (*Sp) Aerosol 1 Puff INHALATION Q4HRT PRN shortness of breath or wheezing Alprazolam 0.25 mg 09/21/24 20:47 Alprazolam (*Crx) 0.25 Mg Tablet PO BID PRN anxiety Amitriptyline HCl 75 mg 09/21/24 21:00 09/21/24 23:09 Amitriptyline Hcl 25 Mg Tablet PO 75 mg QHS STEVIE Administration Famotidine 20 mg 09/21/24 21:00 09/21/24 23:09 Famotidine 20 Mg Tablet PO 20 mg Q12HR STEVIE Administration Fluticasone Propionate 1 spray 09/21/24 21:00 09/21/24 23:04 Fluticasone Propionate 0.05% Na Spr 16 Gm Btl (*Bkc) NASAL 1 spray Q12HR STEVIE Administration Gabapentin 100 mg 09/21/24 21:00 09/21/24 23:09 Gabapentin 100 Mg Capsule PO 100 mg QHS STEVIE Administration Heparin Sodium (Porcine) 5,000 units 09/22/24 09:00 Heparin Sodium 5,000 Units/Ml Vial SUB-Q Q12HR STEVIE Piperacillin Sod/Tazobactam Sod 2.25 gm in 50 mls @ 100 mls/hr 09/22/24 00:00 09/22/24 05:39 Zosyn 2.25 Gm/Ns 50 Ml IVPB 100 mls/hr Q6HR STEVIE Administration Sodium Chloride 1,000 mls @ 75 mls/hr 09/21/24 22:00 09/21/24 23:04 Normal Saline Iv IV CONT 75 mls/hr .[id number] STEVIE Administration Lisinopril 5 mg 09/22/24 09:00 Lisinopril 5 Mg Tablet PO DAILY [facility] Morphine Sulfate 4 mg 09/21/24 21:58 09/22/24 04:57 Morphine Sulfate (*Crx) 4 Mg/Ml Inj IV PUSH 4 mg Q4H PRN Administration Pain Rated 7-10 Non-Formulary Medication 200 mg 09/22/24 09:00 Calcium Citrate PO 10/22/24 08:59 DAILY [facility] Ondansetron HCl 4 mg 09/21/24 18:25 09/22/24 04:57 Ondansetron Inj 4 Mg/2 Ml Vial IV PUSH 4 mg Q4H PRN Administration Nausea Pantoprazole Sodium 40 mg 09/22/24 09:00 Pantoprazole 40 Mg Tablet PO QAM [facility] Polyethylene Glycol 17 gm 09/21/24 21:00 09/21/24 23:05 Polyethylene Glycol 3350 17 Gm Powd.Pack PO 17 gm QID STEVIE Administration Radiology Results: ITS Impressions Abdomen/Pelvis CT 09/21/24 16:15 IMPRESSION: 1. No flow seen in the aorta suggestive of occlusion below the renal arteries. 2. Fecal material loaded in the bowel in the left side of the abdomen most likely in the colon with thickened wall which may indicate colitis. Ischemia cannot be excluded. Clinical correlation and follow-up advised. 3. Atrophic left kidney. 4. Adrenal mass in the left adrenal gland. Further evaluation with CT adrenal protocol or MRI is advised. Physician: Magdiel Quach MD was notified with the result of the patient at 4:57 PM on September 21, 2024 Labs Labs: Laboratory Results - last 24 hr 09/21/24 09/21/24 09/22/24 15:08 21:16 05:03 WBC 17.6 H 15.0 H RBC 3.85 L 3.37 L Hgb 12.2 10.7 L Hct 37.0 33.1 L MCV 96.1 98.2 MCH 31.7 31.8 MCHC 33.0 32.3 RDW 13.0 13.1 Plt Count 528 H 482 H MPV 8.8 8.9 Immature Gran % (Auto) 0.6 H 0.4 Neut % (Auto) 82.6 H 79.4 H Lymph % (Auto) 9.2 L 10.7 L [place] % (Auto) 7.2 8.9 H Eos % (Auto) 0.2 0.3 Baso % (Auto) 0.2 0.3 Lymph # (Auto) 1.62 1.60 [place] # (Auto) 1.3 H 1.3 H Eos # (Auto) 0.0 0.0 Baso # (Auto) 0.0 0.0 Abs Immat Gran (auto) 0.10 H 0.06 H Absolute Neuts (auto) 14.5 H 11.9 H Absolute Nucleated RBC 0.000 0.000 Nucleated RBC % 0.0 0.0 Sodium 137 141 Potassium 3.8 4.1 Chloride 107 111 H Carbon Dioxide 21 L 24 Anion Gap 9 6 BUN 23 H 15 D Creatinine 0.80 0.70 Estim Creat Clear Calc 38 39 Estimated GFR > 60 > 60 Glucose 105 86 Lactic Acid 0.9 Calcium 9.4 8.7 Phosphorus 3.2 Total Bilirubin 0.6 AST 24 ALT 11 Alkaline Phosphatase 136 H Total Protein 8.0 Albumin 4.0 Lipase 86 TSH (Reflex) 1.310 Quality VTE Prophylaxis VTE prophylaxis: pharmacologic ordered (Heparin 5000 units subQ q.12 hours)
[2024-09-22] MEDS: lisinopriL 5 MG TABLET PO (08:45)
[2024-09-22] MEDS: FAMOTIDINE 20 MG TABLET PO ×2 (08:45→20:06)
[2024-09-22] MEDS: HEPARIN SODIUM 5,000 UNITS/ML VIAL 5000 UNITS SUB-Q ×2 (08:45→20:05)
[2024-09-22] MEDS: FLUTICASONE PROPIONATE 0.05% NA SPR 16 GM BTL (*BKC) 1 SPRAY NASAL (08:45)
[2024-09-22] MEDS: PANTOPRAZOLE 40 MG TABLET PO (08:45)
[2024-09-22] MEDS: polyethylene glycoL 3350 17 GM POWD.PACK PO ×4 (08:45→20:07)
--- NOTE | 2024-09-22 10:17 | P.CONGS_ITS ---
Assessment and Plan Assessment and plan (1) Constipation: Qualifiers: Constipation type: drug induced constipation Qualified Code(s): K59.03 - Drug induced constipation Code(s): K59.00 - Constipation, unspecified Status: Acute Assessment and Plan: * CT scan shows fecal loading in the colon primarily on the left side with possible colitis. She has had 1 enema since admission without having any b owel movements. She has not had a bowel movement reportedly in 3 weeks. She also has not had a colonoscopy in more than 10 years with issues of intermittent constipation chronically. Her chronic narcotic use likely plays a role in these issues and she should try to minimize narcotics if possible. Her abdominal exam is benign. Rectal exam unremarkable and no distal stool to disimpact. No evidence of perforation on CT or clinical findings to suggest ischemia. No indication for surgical intervention at this time. We will further evaluate with a Hypaque enema, which may be diagnostic and therap eutic. We will also consult GI for her chronic constipation. Okay with clear liquids at this time. Continue to monitor with serial abdominal exams. (2) Stercoral colitis: Code(s): K52.89 - Other specified noninfective gastroenteritis and colitis Status: Acute Assessment and Plan: * Abdominal exam benign. Continue IV antibiotics. See plan above. (3) Leukocytosis: Qualifiers: Leukocytosis type: unspecified Qualified Code(s): D72.829 - Elevated white blood cell count, unspecified Code(s): D72.829 - Elevated white blood cell count, unspecified Status: Acute (4) Severe protein-calorie malnutrition: Code(s): E43 - Unspecified severe protein-calorie malnutrition Status: Acute (5) Abdominal aortic atherosclerosis: Onset Date: ~2021 Code(s): I70.0 - Atherosclerosis of aorta Status: Acute (6) Peripheral vascular disease of lower extremity: Onset Date: ~2007 Code(s): I73.9 - Peripheral vascular disease, unspecified Status: Acute (7) Continuous tobacco abuse: Code(s): Z72.0 - Tobacco use Status: Acute Assessment and Plan: * Encouraged cessation. (8) Chronic narcotic use: Code(s): F11.90 - Opioid use, unspecified, uncomplicated Status: Acute Assessment and Plan: * Due to back pain. Prescribed Percocet as needed. Plan I have discussed the patient's case and plan of care with Dr. Nguyen. Thank you for allowing us to see the patient in consultation and we will continue to follow along with you. History of Present Illness Consult details Consult date: 09/22/24 Reason for consult: other (Fecal impaction, stercoral colitis) Requesting physician: Bárbara Nguyen MD Narrative: This is a 74-year-old woman with PMH of COPD, hypertension, malnutrition, chronic narcotic dependence, peripheral arterial disease, and multiple other medical problems, who we have been asked to see in surgical consultation for stercoral colitis and fecal impaction. She presented to the ED yesterday with complaints of left-sided abdominal pain. The pain has been intermittent and crampy at times, but other times sharp. She thought it was gas pains and has taken multiple laxatives [id number] as she thought she was constipated. She has not had a bowel movement since 09/01/2024. She reports chronic constipation, but typically this resolves a few days after taking milk of magnesia or MiraLax. No nausea or vomiting, other than vomiting after trying to take absent salts a few days ago. She is on chronic narcotics due to back pain and it sounds like she has limited activity during the day and ambulates with a cane since a fall in October. She has chronic low appetite and tries to drink Ensure is a couple times a day at home. She continues to slowly lose weight with a BMI of only 15 today. Labs in the ED [place] [address], carbon dioxide 21, BUN 23, creatinine 0.8, lactic acid 0.9. CT scan of the abdomen and pelvis showed fecal material loaded in the bowel in the left side of the abdomen most likely in the colon with thickened wall which may indicate colitis, ischemia cannot be excluded. Also noted is atrophic left kidney, adrenal mass in the left adrenal gland, and no flow seen in the aorta below the renal arteries suggestive of occlusion. In review of the CT from 2021, she had evidence of severe proximal aortic atherosclerotic stenosis at that time. Her pedal and posterior tibial pulses have been able to be dopplered. Our service has been consulted for the fecal impaction with colitis. She is now seen on the medical floor with her daughter at the bedside. She continues to have some left-sided abdominal pain, but appears comfortable. She reports having chronic constipation and has not had a colonoscopy in more than 10 years. She reports intermittent rectal bleeding on tissue paper when wiping that she attributes to hemorrhoids. She does not feel nauseous this morning. Only previous abdominal surgery is a laparoscopic cholecystectomy. Review of Systems Review of Systems: All systems reviewed & are unremarkable except as noted in HPI and below [facility] Past Medical History Medical History Abdominal aortic atherosclerosis (~2021) severe proximal aortic atherosclerotic disease with stenosis on CT of the abdomen ER 04/15/2022. Abnormal fasting glucose Fasting glucose 102 with hemoglobin A1c 4.8 on 04/04/2022. Fasting glucose 104 on 12/03/2023. Age-related osteoporosis without current pathological fracture Anemia hemoglobin 11.4 on 04/04/2022. Hemoglobin 11.3 on 04/15/2022. Vitamin B12 was 1200 with folic acid greater than 24 and iron 47. hemoglobin 11.9 with iron 43 on 12/03/2023. Arrhythmia (~12/03/23) irregularly irregular rhythm on 12/03/2023. Chronic bilateral low back pain Chronic depression Chronic obstructive pulmonary disease, unspecified Essential hypertension GERD (gastroesophageal reflux disease) Insomnia Microscopic hematuria Mixed hyperlipidemia Total cholesterol 166, HDL 40, triglycerides 146 and LDL 101 with AST 19 and ALT 13 on 04/04/2022 with thyroid function normal with TSH 1.98 and free T4 1.3. Total cholesterol 186 with triglycerides 146 and HDL 40 on 12/03/2023. Peripheral vascular disease of lower extremity (~2007) history of stents distal aorta to the common iliac bilaterally 11/09/2007. Rhinitis Sinus arrhythmia (~12/03/23) no atrial fibrillation on EKG 12/03/2023. Sinus rhythm with sinus arrhythmia. Sinusitis Underweight due to inadequate caloric intake UTI (urinary tract infection) Vertigo Surgical History Surgical History Hx of cholecystectomy S/P peripheral artery angioplasty with stent placement The patient had attempt at stent placement our facility in 2006 but was unsuccessful. Evidently patient later had a secondary procedure at another facility but details are not available Family History Family History Father Family history of cardiovascular disease, Onset Age: 70 Mother Family history of malignant neoplasm, Onset Age: 60 Grandparent Family history of malignant neoplasm Social History Social History Social History: Patient lives in her own home. She raised 4 children. Her oldest son at age 39 of unknown causes. Her remaining children are in relatively good health. Her daughter Emily at bedside. The patient's has smoked up to a pack of cigarettes per day but has been down to half a pack per day for ?awhile.? She denies any significant history of alcohol use or illicit substance use. She used to work at [employer]. Code status: DNR/DNI (per patient request) Healthcare power of cp bleacher operator: Emily Lopez Smoking packs per day: 0.5 Smoking cigarettes per day: 10.0 Years smoked: 60 Smoking pack-years: 30.00 Smoking status: Current every day smoker Alcohol intake: never Substance use: never Substance use type: does not use Do You Feel Safe in your Home?: Yes Lack of Transportation: No Lack of Food: Never True Current Housing: Decline to Answer Concerned About Future Housing: Decline to Answer Difficulty Paying Gas/Electric Bills: Decline to Answer Difficulty Paying for Meds: Decline to Answer Currently Unemployed: Decline to Answer Education: Decline to Answer Difficulty w/ Childcare or Family Care: Decline to Answer Spiritual care concerns: No Meds Home Medications and Allergies Home Medications Medication Instructions Recorded Confirmed Type calcium citrate 200 mg PO DAILY 09/28/19 09/21/24 History [id number] 8 mg-folic 400 1 tablet PO DAILY 09/28/19 09/21/24 History mcg-K 50 mcg-lutein 300 mcg tablet (Centrum Silver Women) fluticasone propionate 50 1 spray intranasal BID #16 grams 05/26/23 09/21/24 Rx mcg/actuation nasal spray,suspension (Flonase Allergy Relief) amitriptyline 75 mg tablet 75 mg PO . q.h.s. #30 tabs 11/03/23 09/21/24 Rx albuterol sulfate 90 mcg/actuation 2 puff inhalation Q4H PRN 05/19/24 09/21/24 Rx aerosol inhaler shortness of breath or wheezing #8.5 grams alprazolam 0.25 mg tablet 0.25 mg PO BID PRN anxiety #30 tabs 05/19/24 09/21/24 Rx lisinopril 5 mg tablet 5 mg PO DAILY #90 tabs 05/19/24 09/21/24 Rx pantoprazole 40 mg tablet,delayed 40 mg PO QAM #90 tabs 05/19/24 09/21/24 Rx release (Protonix) oxycodone-acetaminophen 10 mg-325 1 tablet PO Q4H PRN pain #180 tabs 08/27/24 09/21/24 Rx mg tablet (Percocet) famotidine 20 mg tablet 20 mg PO BID PRN heartburn #60 tabs 09/01/24 09/21/24 Rx gabapentin 100 mg capsule 100 mg PO QHS #90 caps 09/01/24 09/21/24 Rx Allergies Allergy/AdvReac Type Severity Reaction Status Date / Time No Known Allergies Allergy Mild Verified 09/21/24 17:24 Vital Signs Vital Signs - 24 hr 09/21/24 12:52 09/21/24 13:58 09/21/24 16:59 Temperature 97.6 F 98.3 F 98.1 F Pulse Rate 95 84 91 Respiratory Rate 16 20 20 Blood Pressure 113/65 121/72 133/67 Pulse Oximetry 100 100 100 Oxygen Delivery 09/21/24 18:33 09/21/24 19:30 09/21/24 19:55 Temperature 98.3 F 98.4 F Pulse Rate 87 84 81 Respiratory Rate 20 20 18 Blood Pressure 119/72 143/76 H 140/70 Pulse Oximetry 100 100 100 Oxygen Delivery 09/21/24 20:46 09/22/24 04:33 09/22/24 08:00 Temperature 98.1 F 97.1 F L Pulse Rate 84 89 Respiratory Rate 16 20 Blood Pressure 121/64 132/73 Pulse Oximetry 95 99 Oxygen Delivery Room Air Exam Const: General: no acute distress Nutritional Appearance: malnourished Orientation/consciousness: patient oriented x3 HENMT: Head: normocephalic and atraumatic Ears: hearing grossly normal bilaterally Mouth: Yes moist mucous membranes Eyes: General: appearance normal, both eyes and all related structures Pupils: Equal, round and reactive pupils present Neck: Neck: normal visual inspection and full ROM Resp: Effort & Inspection: no respiratory distress Auscultation: clear to auscultation bilaterally Cardio: Rate: regular rate Rhythm: regular rhythm Heart sounds: S1 normal heart sound present and S2 normal heart sound present GI: Inspection: non-distended and scaphoid GI Palp: Yes Soft to palpation, Yes Tenderness to palpation present (GI) (mild TTP LLQ and suprapubic area), No Guarding due to palpation present (GI), Yes No hepatosplenomegaly present, No Hernia present and No Rebound tenderness present Percussion: Yes normal to percussion Auscultation: normal bowel sounds Rectal Exam: visual inspection normal (other than perianal skin tags), normal sphincter tone, No mass (no palpable mass on ROSSANA or visual inspection) and other (no firm stool palpable on ROSSANA) Skin: General skin exam: normal color Neuro: General: moves all extremities and no focal motor deficits Speech: normal speech Motor exam (neuro): 5/5 motor strength present throughout Extrem: General: normal to inspection and no edema Right lower extremity: foot Details: vascular exam Details: dorsalis pedis pulse present (with doppler) and posterior tibial pulse present (with doppler); not cool and no cyanosis Left lower extremity: foot Details: vascular exam Details: dorsalis pedis pulse present (with doppler) and posterior tibial pulse present (with doppler); not cool and no cyanosis Psych: Mental Status: mental status grossly normal Attitude: cooperative Insight: Good insight present (Psych) Judgement: Good judgement present (Psych) Results Labs 09/22/24 05:03 09/22/24 05:03 Labs: Abnormal lab results 09/21/24 09/22/24 Range/Units 15:08 05:03 WBC 17.6 H 15.0 H (4.5-10.0) K/mm3 RBC 3.85 L 3.37 L (4.2-5.4) M/mm3 Hgb 10.7 L (12.0-15.0) g/dL Hct 33.1 L (37.0-47.0) % Plt Count 528 H 482 H (150-375) k/mm3 Immature Gran % (Auto) 0.6 H (0-0.5) % Neut % (Auto) 82.6 H 79.4 H (45.5-73.1) % Lymph % (Auto) 9.2 L 10.7 L (18.3-44.2) % [place] % (Auto) 8.9 H (2.6-8.5) % [place] # (Auto) 1.3 H 1.3 H (0.1-0.6) K/mm3 Abs Immat Gran (auto) 0.10 H 0.06 H (0.00-0.031) K/mm3 Absolute Neuts (auto) 14.5 H 11.9 H (1.3-6.7) K/mm3 Chloride 111 H (98-107) mmol/L Carbon Dioxide 21 L (22-30) mmol/L BUN 23 H (7-17) mg/dL Alkaline Phosphatase 136 H (38-126) U/L Diabetes panel 09/21/24 09/22/24 Range/Units 15:08 05:03 Sodium 137 141 (137-145) mmol/L Potassium 3.8 4.1 (3.4-5.0) mmol/L Chloride 107 111 H (98-107) mmol/L Carbon Dioxide 21 L 24 (22-30) mmol/L BUN 23 H 15 D (7-17) mg/dL Creatinine 0.80 0.70 (0.7-1.0) mg/dL Glucose 105 86 (65-110) mg/dL Calcium 9.4 8.7 (8.4-10.2) mg/dL AST 24 (14-36) U/L ALT 11 (6-35) U/L Alkaline Phosphatase 136 H (38-126) U/L Total Protein 8.0 (6.3-8.2) g/dL Albumin 4.0 (3.5-5.1) g/dL Calcium panel 09/21/24 09/22/24 Range/Units 15:08 05:03 Calcium 9.4 8.7 (8.4-10.2) mg/dL Phosphorus 3.2 (2.5-4.5) mg/dL Albumin 4.0 (3.5-5.1) g/dL Pituitary panel 09/21/24 09/22/24 Range/Units 15:08 05:03 Sodium 137 141 (137-145) mmol/L Potassium 3.8 4.1 (3.4-5.0) mmol/L Chloride 107 111 H (98-107) mmol/L Carbon Dioxide 21 L 24 (22-30) mmol/L BUN 23 H 15 D (7-17) mg/dL Creatinine 0.80 0.70 (0.7-1.0) mg/dL Glucose 105 86 (65-110) mg/dL Calcium 9.4 8.7 (8.4-10.2) mg/dL Adrenal panel 09/21/24 09/22/24 Range/Units 15:08 05:03 Sodium 137 141 (137-145) mmol/L Potassium 3.8 4.1 (3.4-5.0) mmol/L Chloride 107 111 H (98-107) mmol/L Carbon Dioxide 21 L 24 (22-30) mmol/L BUN 23 H 15 D (7-17) mg/dL Creatinine 0.80 0.70 (0.7-1.0) mg/dL Glucose 105 86 (65-110) mg/dL Calcium 9.4 8.7 (8.4-10.2) mg/dL Total Bilirubin 0.6 (0.2-1.3) mg/dL AST 24 (14-36) U/L ALT 11 (6-35) U/L Alkaline Phosphatase 136 H (38-126) U/L Total Protein 8.0 (6.3-8.2) g/dL Albumin 4.0 (3.5-5.1) g/dL All other labs normal. Imaging Additional studies: ITS Impressions Abdomen/Pelvis CT 09/21/24 16:15 IMPRESSION: 1. No flow seen in the aorta suggestive of occlusion below the renal arteries. 2. Fecal material loaded in the bowel in the left side of the abdomen most likely in the colon with thickened wall which may indicate colitis. Ischemia cannot be excluded. Clinical correlation and follow-up advised. 3. Atrophic left kidney. 4. Adrenal mass in the left adrenal gland. Further evaluation with CT adrenal protocol or MRI is advised. Physician: Magdiel Quach MD was notified with the result of the patient at 4:57 PM on September 21, 2024
[2024-09-22 12:43] VITALS: BMI 15.9
[2024-09-22 14:00] VITALS: BP 128/70; PULSE 82; RESP 19; TEMP 36.4; O2SAT 98
[2024-09-22] MEDS: SODIUM CHLORIDE 0.9% IV 1,000 ML 75 ML IV CONT (15:00)
--- NOTE | 2024-09-22 15:08 | P.CONGI_ITS ---
Assessment and Plan Assessment and plan (1) Narcotic bowel syndrome: Code(s): K63.89 - Other specified diseases of intestine; T40.601A - Poisoning by unspecified narcotics, accidental (unintentional), initial encounter Status: Acute Assessment and Plan: The patient has clear evidence of narcotic bowel syndrome, correct her eyes by severe constipation. Today's barium enema did not show any mechanical obst ruction or suspicious for neoplasm. She had a colonoscopy a few years ago, reportedly unremarkable. The most effective treatment for this condition is Naldemedine 0.2 mg once a day in am. this is a non formulary medication, however if the patient cannot get it for different reasons, MiraLax, 17 g three or 4 times a day would help her get by, along with significant hydration. Antibiotics can be safely discontinued and patient can be discharged home since she is not acutely ill. Will be glad to see her as an outpatient in our office. GI Consult Note Consult date/time: 09/22/24 15:08 Reason for consult: Severe constipation HPI: Parul Lopez is a 74 year old female who is a chronic narcotic user for t he past 11 years secondary to a severe back injury. She takes a combination of oxycodone and acetaminophen daily. He has been dealing with constipation throughout these years, having 1-2 bowel movements per week, always very hard a lumpy. However over the past 3 weeks he has not been able to pass any bowel movement and started to have left lower quadrant pain and discomfort. There is no rectal bleeding, unintentional weight loss, nausea, vomiting. Review of Systems Review of Systems: All systems reviewed & are unremarkable except as noted in HPI and below [facility] Past Medical History Medical History Abdominal aortic atherosclerosis (~2021) severe proximal aortic atherosclerotic disease with stenosis on CT of the abdomen ER 04/15/2022. Abnormal fasting glucose Fasting glucose 102 with hemoglobin A1c 4.8 on 04/04/2022. Fasting glucose 104 on 12/03/2023. Age-related osteoporosis without current pathological fracture Anemia hemoglobin 11.4 on 04/04/2022. Hemoglobin 11.3 on 04/15/2022. Vitamin B12 was 1200 with folic acid greater than 24 and iron 47. hemoglobin 11.9 with iron 43 on 12/03/2023. Arrhythmia (~12/03/23) irregularly irregular rhythm on 12/03/2023. Chronic bilateral low back pain Chronic depression Chronic obstructive pulmonary disease, unspecified Essential hypertension GERD (gastroesophageal reflux disease) Insomnia Microscopic hematuria Mixed hyperlipidemia Total cholesterol 166, HDL 40, triglycerides 146 and LDL 101 with AST 19 and ALT 13 on 04/04/2022 with thyroid function normal with TSH 1.98 and free T4 1.3. Total cholesterol 186 with triglycerides 146 and HDL 40 on 12/03/2023. Peripheral vascular disease of lower extremity (~2007) history of stents distal aorta to the common iliac bilaterally 11/09/2007. Rhinitis Sinus arrhythmia (~12/03/23) no atrial fibrillation on EKG 12/03/2023. Sinus rhythm with sinus arrh ythmia. Sinusitis Underweight due to inadequate caloric intake UTI (urinary tract infection) Vertigo Surgical History Surgical History Hx of cholecystectomy S/P peripheral artery angioplasty with stent placement The patient had attempt at stent placement our facility in 2006 but was unsuccessful. Evidently patient later had a secondary procedure at another facility but details are not available Family History Family History Father Family history of cardiovascular disease, Onset Age: 70 Mother Family history of malignant neoplasm, Onset Age: 60 Grandparent Family history of malignant neoplasm Social History Social History Social History: Patient lives in her own home. She raised 4 children. Her oldest son at age 39 of unknown causes. Her remaining children are in relatively good health. Her daughter Emily at bedside. The patient's has smoked up to a pack of cigarettes per day but has been down to half a pack per day for ?awhile.? She denies any significant history of alcohol use or illicit sub stance use. She used to work at [employer]. Code status: DNR/DNI (per patient request) Healthcare power of seat covers trimmer: Emily Lopez Smoking packs per day: 0.5 Smoking cigarettes per day: 10.0 Years smoked: 60 Smoking pack-years: 30.00 Smoking status: Current every day smoker Alcohol intake: never Substance use: never Substance use type: does not use Do You Feel Safe in your Home?: Yes Lack of Transportation: No Lack of Food: Never True Current Housing: Decline to Answer Concerned About Future Housing: Decline to Answer Difficulty Paying Gas/Electric Bills: Decline to Answer Difficulty Paying for Meds: Decline to Answer Currently Unemployed: Decline to Answer Education: Decline to Answer Difficulty w/ Childcare or Family Care: Decline to Answer Spiritual care concerns: No Meds Home Medications and Allergies Home Medications Medication Instructions Recorded Confirmed Type calcium citrate 200 mg PO DAILY 09/28/19 09/21/24 History xrhfjukk-bffc-czut 8 mg-folic 400 1 tablet PO DAILY 09/28/19 09/21/24 History mcg-K 50 mcg-lutein 300 mcg tablet (Centrum Silver Women) fluticasone propionate 50 1 spray intranasal BID #16 grams 05/26/23 09/21/24 Rx mcg/actuation nasal spray,suspension (Flonase Allergy Relief) amitriptyline 75 mg tablet 75 mg PO . q.h.s. #30 tabs 11/03/23 09/21/24 Rx albuterol sulfate 90 mcg/actuation 2 puff inhalation Q4H PRN 05/19/24 09/21/24 Rx aerosol inhaler shortness of breath or wheezing #8.5 grams alprazolam 0.25 mg tablet 0.25 mg PO BID PRN anxiety #30 tabs 05/19/24 09/21/24 Rx lisinopril 5 mg tablet 5 mg PO DAILY #90 tabs 05/19/24 09/21/24 Rx pantoprazole 40 mg tablet,delayed 40 mg PO QAM #90 tabs 05/19/24 09/21/24 Rx release (Protonix) oxycodone-acetaminophen 10 mg-325 1 tablet PO Q4H PRN pain #180 tabs 08/27/24 09/21/24 Rx mg tablet (Percocet) famotidine 20 mg tablet 20 mg PO BID PRN heartburn #60 tabs 09/01/24 09/21/24 Rx gabapentin 100 mg capsule 100 mg PO QHS #90 caps 09/01/24 09/21/24 Rx Allergies Allergy/AdvReac Type Severity Reaction Status Date / Time No Known Allergies Allergy Mild Verified 09/21/24 17:24 Vital Signs Vital Signs - 24 hr 09/21/24 16:59 09/21/24 18:33 09/21/24 19:30 Temperature 98.1 F 98.3 F Pulse Rate 91 87 84 Respiratory Rate 20 20 20 Blood Pressure 133/67 119/72 143/76 H Pulse Oximetry 100 100 100 Oxygen Delivery 09/21/24 19:55 09/21/24 20:46 09/22/24 04:33 Temperature 98.4 F 98.1 F 97.1 F L Pulse Rate 81 84 89 Respiratory Rate 18 16 20 Blood Pressure 140/70 121/64 132/73 Pulse Oximetry 100 95 99 Oxygen Delivery 09/22/24 08:00 Temperature Pulse Rate Respiratory Rate Blood Pressure Pulse Oximetry Oxygen Delivery Room Air Exam Const: General: cooperative and healthy appearing Resp: Effort & Inspection: normal respiratory effort and able to speak in complete sentences Auscultation: clear to auscultation bilaterally Cardio: Rate: regular rate Rhythm: regular rhythm GI: Inspection: normal to inspection GI Palp: No No hepatosplenomegaly pres ent Auscultation: normal bowel sounds Rectal Exam: deferred Skin: General skin exam: normal color Psych: Appearance: grossly normal Mental Status: mental status grossly normal Results Labs 09/22/24 05:03 09/22/24 05:03 Labs: Short CBC 09/21/24 09/22/24 Range/Units 15:08 05:03 WBC 17.6 H 15.0 H (4.5-10.0) K/mm3 Hgb 12.2 10.7 L (12.0-15.0) g/dL Hct 37.0 33.1 L (37.0-47.0) % Plt Count 528 H 482 H (150-375) k/mm3 [facility] 09/21/24 09/22/24 15:08 05:03 Sodium 137 141 Potassium 3.8 4.1 Chloride 107 111 H Carbon Dioxide 21 L 24 BUN 23 H 15 D Creatinine 0.80 0.70 Glucose 105 86 Calcium 9.4 8.7 Liver Function 09/21/24 Range/Units 15:08 Total Bilirubin 0.6 (0.2-1.3) mg/dL AST 24 (14-36) U/L ALT 11 (6-35) U/L Alkaline Phosphatase 136 H (38-126) U/L Albumin 4.0 (3.5-5.1) g/dL
[2024-09-22 19:59] VITALS: BP 148/72; PULSE 101; RESP 20; TEMP 37.5; O2SAT 98
[2024-09-22 20:00] VITALS: PULSE 101; RESP 20; O2SAT 98
[2024-09-22] MEDS: AMITRIPTYLINE HCL 25 MG TABLET 75 MG PO (20:06)
[2024-09-22] MEDS: GABAPENTIN 100 MG CAPSULE PO (20:07)
[2024-09-22] MEDS: LACTULOSE ENEMA 200 GM/1,000 ML ENEMA RECTAL (20:08)
[2024-09-22] MEDS: ALPRAZolam (*CRX) 0.25 MG TABLET PO (20:16)
[2024-09-22] MEDS: SIMETHICONE 125 MG CHEW TAB PO (20:30)
[2024-09-23] MEDS: MORPHINE SULFATE (*CRX) 4 MG/ML INJ IV PUSH ×5 (03:15→20:30)
[2024-09-23 04:07] VITALS: BP 167/72; PULSE 82; RESP 16; TEMP 36.9; O2SAT 100
[2024-09-23 05:41] LABS: Alanine Aminotransferase 10 U/L (6-35); Albumin Level 3.4 g/dL (3.5-5.1); Alkaline Phosphatase 109 U/L (38-126); Anion Gap 13 mmol/L (4-12); Aspartate Amino Transferase 65 U/L (14-36); Bilirubin,Total 0.6 mg/dL (0.2-1.3); Blood Urea Nitrogen 10 mg/dL (7-17); Calcium 8.5 mg/dL (8.4-10.2); Carbon Dioxide 15 mmol/L (22-30); Chloride 110 mmol/L (98-107); Estimated CRCL calculation 55 ml/min; Estimated Glomerular Filt Rate > 60; Glucose 54 mg/dL (65-110); Magnesium 2.3 mg/dL (1.6-2.3); Potassium 3.7 mmol/L (3.4-5.0); Sodium 138 mmol/L (137-145)
[2024-09-23] MEDS: SODIUM CHLORIDE 0.9% IV 1,000 ML 75 ML IV CONT (05:50)
[2024-09-23 06:00] LABS: Basophils Absolute Auto 0.1 K/mm3 (0.0-0.1); Basophils Percent Auto 0.3 % (0.2-1.2); Eosinophils Percent Auto 0.3 % (0-4.4); Hematocrit 36.3 % (37.0-47.0); Hemoglobin 11.2 g/dL (12.0-15.0); Immature Granulocyte Absolute 0.07 K/mm3 (0.00-0.031); Immature Granulocyte Percent A 0.5 % (0-0.5); Lymphocytes Absolute Auto 1.93 K/mm3 (0.9-3.2); Lymphocytes Percent Auto 13.4 % (18.3-44.2); Mean Corpuscular HGB Conc 30.9 g/dl (32-36); Mean Corpuscular Hemoglobin 31.3 pg (26-34); Mean Corpuscular Volume 101.4 fl (80-100); Mean Platelet Volume 8.7 fl (7.4-10.4); Monocytes Percent Auto 7.1 % (2.6-8.5); Neutrophils Absolute Auto 11.3 K/mm3 (1.3-6.7); Neutrophils Percent Auto 78.4 % (45.5-73.1); Platelet Count Result 519 k/mm3 (150-375); Red Blood Count 3.58 M/mm3 (4.2-5.4); White Blood Count 14.4 K/mm3 (4.5-10.0)
[2024-09-23 06:17] LABS: Glucose Point of Care 63 mg/dl (65-105)
[2024-09-23] MEDS: DEXTROSE 50% 25 GM/50 ML SYRINGE IV PUSH (06:38)
[2024-09-23 06:54] LABS: Glucose Point of Care 216 mg/dl (65-105)
--- NOTE | 2024-09-23 08:50 | WPDPN ---
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 No need for further surgical evaluation. GI on board and managing bowel regimen for her narcotic bowel syndrome. Surgery be available p.r.n.. Subjective Date/time seen: 09/23/24 08:50 Interval history: Patient complaining mostly of back pain today. Minimal abdominal pain but having some minor gas pains. She had an enema yesterday and did have a bowel movement. Afebrile. Exam GI: Other: Abdomen is soft with minimal distention. No significant tenderness to palpation. Exam is benign. Objective Data Vital Signs Vital Signs: Vital Signs - 24 hr 09/22/24 14:00 09/22/24 19:59 09/22/24 20:00 Temperature 36.4 C 37.5 C Pulse Rate 82 101 H 101 H Respiratory Rate 19 20 20 Blood Pressure 128/70 148/72 H Pulse Oximetry 98 98 98 Oxygen Delivery Room Air 09/23/24 04:07 Temperature 36.9 C Pulse Rate 82 Respiratory Rate 16 Blood Pressure 167/72 H Pulse Oximetry 100 Oxygen Delivery Intake/Output Intake/Output: Intake & Output 09/20/24 09/21/24 09/22/24 09/23/24 23:59 23:59 23:59 23:59 Intake Total 1050 1370 1200 Output Total 250 300 202 Balance 800 1070 998 Meds/Results Medications: Active Medications Generic Name Dose Route Start Last Admin Trade Name Freq PRN Reason Stop Dose Admin Acetaminophen 650 mg 09/21/24 18:25 Acetaminophen 325 Mg Tablet PO Q4H PRN Mild Pain (1-3) or Fever Albuterol 2 puff 09/21/24 22:11 Albuterol Sulfate (*Sp) Aerosol 1 Puff INHALATION Q4HRT PRN shortness of breath or wheezing Alprazolam 0.25 mg 09/21/24 20:47 09/22/24 20:16 Alprazolam (*Crx) 0.25 Mg Tablet PO 0.25 mg BID PRN Administration anxiety Amitriptyline HCl 75 mg 09/21/24 21:00 09/22/24 20:06 Amitriptyline Hcl 25 Mg Tablet PO 75 mg QHS STEVIE Administration Dextrose 12.5 gm 09/23/24 06:24 09/23/24 06:38 Dextrose 50% 25 Gm/50 Ml Syringe IV PUSH 12.5 gm PRN PRN Administration Hypoglycemia Protocol Famotidine 20 mg 09/21/24 21:00 09/22/24 20:06 Famotidine 20 Mg Tablet PO 20 mg Q12HR STEVIE Administration Fluticasone Propionate 1 spray 09/21/24 21:00 09/22/24 20:07 Fluticasone Propionate 0.05% Na Spr 16 Gm Btl (*Bkc) NASAL Not Given Q12HR STEVIE Gabapentin 100 mg 09/21/24 21:00 09/22/24 20:07 Gabapentin 100 Mg Capsule PO 100 mg QHS STEVIE Administration Glucagon 1 mg 09/23/24 06:24 Glucagon For Inj 1 Mg Vial IM PRN PRN Hypoglycemia Protocol Glucose 15 gm 09/23/24 06:24 Glucose Oral Gel 15 Gm Of Glucse In 37.5 Gm Tube PO PRN PRN Hypoglycemia Protocol Heparin Sodium (Porcine) 5,000 units 09/22/24 09:00 09/22/24 20:05 Heparin Sodium 5,000 Units/Ml Vial SUB-Q 5,000 units Q12HR STEVIE Administration Sodium Chloride 1,000 mls @ 75 mls/hr 09/21/24 22:00 09/23/24 05:50 Normal Saline Iv IV CONT 75 mls/hr .[id number] STEVIE Administration Dextrose 1,000 mls @ 100 mls/hr 09/23/24 06:24 Dextrose 5% 1,000 Ml IVPB PRN PRN Hypoglycemia Protocol Lisinopril 5 mg 09/22/24 09:00 09/22/24 08:45 Lisinopril 5 Mg Tablet PO 5 mg DAILY STEVIE Administration Miscellaneous Information 1 each 09/22/24 00:01 Naldemedine Is Nonformulary, Please Clarify XX 10/22/24 00:00 CLARIFY STEVIE Morphine Sulfate 4 mg 09/21/24 21:58 09/23/24 03:15 Morphine Sulfate (*Crx) 4 Mg/Ml Inj IV PUSH 4 mg Q4H PRN Administration Pain Rated 7-10 Non-Formulary Medication 200 mg 09/22/24 09:00 Calcium Citrate PO 10/22/24 08:59 DAILY STEVIE Non-Formulary Medication 0.2 mg 09/23/24 09:00 Naldemedine PO 10/23/24 08:59 QAM STEVIE Ondansetron HCl 4 mg 09/21/24 18:25 09/22/24 20:06 Ondansetron Inj 4 Mg/2 Ml Vial IV PUSH 4 mg Q4H PRN Administration Nausea Pantoprazole Sodium 40 mg 09/22/24 09:00 09/22/24 08:45 Pantoprazole 40 Mg Tablet PO 40 mg QAM STEVIE Administration Polyethylene Glycol 17 gm 09/21/24 21:00 09/22/24 20:07 Polyethylene Glycol 3350 17 Gm Powd.Pack PO 17 gm QID STEVIE Administration Simethicone 125 mg 09/22/24 20:09 09/22/24 20:30 Simethicone 125 Mg Chew Tab PO 125 mg QID PRN Administration Gas Discomfort Radiology Results: ITS Impressions Abdomen/Pelvis CT 09/21/24 16:15 IMPRESSION: 1. No flow seen in the aorta suggestive of occlusion below the renal arteries. 2. Fecal material loaded in the bowel in the left side of the abdomen most likely in the colon with thickened wall which may indicate colitis. Ischemia cannot be excluded. Clinical correlation and follow-up advised. 3. Atrophic left kidney. 4. Adrenal mass in the left adrenal gland. Further evaluation with CT adrenal protocol or MRI is advised. Physician: Magdiel Quach MD was notified with the result of the patient at 4:57 PM on September 21, 2024 Enema w/Water Soluble 09/22/24 11:33 IMPRESSION: 1. Large volume of stool in the descending and transverse colon with distention of the colon. No stricture. Labs Labs: Laboratory Results - last 24 hr 09/23/24 09/23/24 09/23/24 04:32 05:39 06:14 WBC 14.4 H RBC 3.58 L Hgb 11.2 L Hct 36.3 L MCV 101.4 H MCH 31.3 MCHC 30.9 L RDW 13.0 Plt Count 519 H MPV 8.7 Immature Gran % (Auto) 0.5 Neut % (Auto) 78.4 H Lymph % (Auto) 13.4 L [place] % (Auto) 7.1 Eos % (Auto) 0.3 Baso % (Auto) 0.3 Lymph # (Auto) 1.93 [place] # (Auto) 1.0 H Eos # (Auto) 0.0 Baso # (Auto) 0.1 Abs Immat Gran (auto) 0.07 H Absolute Neuts (auto) 11.3 H Absolute Nucleated RBC 0.000 Nucleated RBC % 0.0 Sodium 138 Potassium 3.7 Chloride 110 H Carbon Dioxide 15 L Anion Gap 13 H BUN 10 D Creatinine 0.50 L Estim Creat Clear Calc 55 Estimated GFR > 60 Glucose 54 L* POC Capillary Glucose 63 L Calcium 8.5 Magnesium 2.3 Total Bilirubin 0.6 AST 65 H ALT 10 Alkaline Phosphatase 109 Total Protein 7.0 Albumin 3.4 L 09/23/24 06:51 WBC RBC Hgb Hct MCV MCH MCHC RDW Plt Count MPV Immature Gran % (Auto) Neut % (Auto) Lymph % (Auto) [place] % (Auto) Eos % (Auto) Baso % (Auto) Lymph # (Auto) [place] # (Auto) Eos # (Auto) Baso # (Auto) Abs Immat Gran (auto) Absolute Neuts (auto) Absolute Nucleated RBC Nucleated RBC % Sodium Potassium Chloride Carbon Dioxide Anion Gap BUN Creatinine Estim Creat Clear Calc Estimated GFR Glucose POC Capillary Glucose 216 H Calcium Magnesium Total Bilirubin AST ALT Alkaline Phosphatase Total Protein Albumin
[2024-09-23] MEDS: FLUTICASONE PROPIONATE 0.05% NA SPR 16 GM BTL (*BKC) 1 SPRAY NASAL ×2 (08:51→20:31)
[2024-09-23] MEDS: SIMETHICONE 125 MG CHEW TAB PO ×4 (08:52→20:31)
[2024-09-23] MEDS: polyethylene glycoL 3350 17 GM POWD.PACK PO ×2 (08:52→12:54)
[2024-09-23] MEDS: lisinopriL 5 MG TABLET PO (08:52)
[2024-09-23] MEDS: FAMOTIDINE 20 MG TABLET PO ×2 (08:52→20:31)
[2024-09-23] MEDS: PANTOPRAZOLE 40 MG TABLET PO (08:52)
[2024-09-23] MEDS: HEPARIN SODIUM 5,000 UNITS/ML VIAL 5000 UNITS SUB-Q ×2 (08:53→20:30)
--- NOTE | 2024-09-23 09:03 | P.PNIM_ITS ---
Progress Note: A&P Assessment and Plan (1) Stercoral colitis: Code(s): K52.89 - Other specified noninfective gastroenteritis and colitis Status: Acute Assessment and Plan: Patient has CT findings concerning for colitis either sterocolitis or ischemic. This is complicated by patient's chronic history of narcotic/opiate dependence likely leading to primary cause of constipation. Last bowel movement 09/[address] of the abdomen pelvis also demonstrated severe aortic stenosis with no blood flow below the renal arteries. * WBC 17.6, lactic normal 0.9 * Started on Zosyn--trend WBC * Clinically looks dry, started on IVF NS at 75 ml per hour. Episode of hypoglycemia this morning. Switched IV fluids to D5NS at 50 ml per hour. * Poor appetite given lack of bowel movement in 3 weeks. * Will advance diet to low fiber. (2) Constipation: Qualifiers: Constipation type: drug induced constipation Qualified Code(s): K59.03 - Drug induced constipation Code(s): K59.00 - Constipation, unspecified Status: Acute Assessment and Plan: The patient was treated with magnesium citrate, Relistor and Zosyn in the ER. * Will try to minimize narcotic use. Will continue patient's home amitriptyline and Neurontin. Patient may benefit from Movantik as outpatient. * Colace enema was order this morning with no results. * QID miralax * Will repeat CBC and electrolyte panel in a.m. * general surgery was consulted and recommended GI consult. They have also ordered x-ray with enema water soluble contrast which can be both diagnostic and palliative. They have signed off. * Patient reports she has never been on any motility agents like Linzess. She normally has a bowel movement every 3-4 days. She does not normally take a bowel regimen. She did try an over the counter stool softener prior to coming to the hospital. * GI consulted by surgery for chronic constipation, recommended starting Naldemedine 0.2 mg (non-formularly) or QID miralax and outpatient follow up. * Patient had lactulose enema last night with small brown, soft stool. * Linzess 145 mcg daily ordered to start today will need pre-auth at discharge.. Patient had a lactulose enema last night with good results. She had an episode of hypoglycemia this morning on am labs (54 g/dl) and received 12.5 mg of D50 push. She has not been taking in much oral intake due to the abdominal pain and constipation. Will advance her diet to low fiber today since she has had a bowel movement. (3) Abdominal aortic stenosis: Code(s): Q25.1 - Coarctation of aorta Status: Acute Assessment and Plan: CT abdomen and pelvis showed no flow seen in aorta suggestive of occlusion below the renal arteries. Atrophic left kidney. Adrenal mass in the left adrenal gland-further evaluation advised with CT adrenal protocol vs MRI. (4) Severe protein-calorie malnutrition: Code(s): E43 - Unspecified severe protein-calorie malnutrition Status: Acute Assessment and Plan: Patient would benefit from dietary supplementation with her chronic severe protein calorie malnutrition. Her outpatient visit from earlier this month indicates that the patient had lost another 2 lb between doctor's visits. Will consult dietitian for recommendations as to nutritional supplements. * low fiber diet and ensure TID * TSH normal * daily weight Subjective Date/time seen: 09/23/24 09:03 Interval history: No acute events overnight. She reports less abdominal pain and passing some flatus. Had a small, soft stool last night. Blood glucose was low on am labs as she had not had much of an appetite. She is hoping she will be able to tolerate more PO intake now that her gut is starting to work. Review of Systems Review of Systems: All systems reviewed & are unremarkable except as noted in HPI and below Exam Narrative: General: appears comfortable, in no acute distress, thin, muscle wasting Respiratory: breathing is unlabored with even chest rise/fall, lungs are clear without wheezing, rhonchi, and crackles Cardiovascular: Rate and rhythm regular, normal s1s2, no murmur Abdomen: Soft, flat, nondistended, mildly tender with palpation to left upper and left lower quadrant, active bowel sounds Extremities: No cyanosis, edema, clubbing. Pulses 2/2 Neuro: A&O x 4 Skin: Warm, dry, intact Objective Data Vital Signs Vital Signs: Vital Signs - 24 hr 09/22/24 14:00 09/22/24 19:59 09/22/24 20:00 Temperature 97.6 F 99.5 F Pulse Rate 82 101 H 101 H Respiratory Rate 19 20 20 Blood Pressure 128/70 148/72 H Pulse Oximetry 98 98 98 Oxygen Delivery Room Air 09/23/24 04:07 Temperature 98.4 F Pulse Rate 82 Respiratory Rate 16 Blood Pressure 167/72 H Pulse Oximetry 100 Oxygen Delivery Intake/Output Intake/Output: Intake & Output 09/20/24 09/21/24 09/22/24 09/23/24 23:59 23:59 23:59 23:59 Intake Total 1050 1370 1200 Output Total 250 300 202 Balance 800 1070 998 Meds/Results Medications: Active Medications Generic Name Dose Route Start Last Admin Trade Name Freq PRN Reason Stop Dose Admin Acetaminophen 650 mg 09/21/24 18:25 Acetaminophen 325 Mg Tablet PO Q4H PRN Mild Pain (1-3) or Fever Albuterol 2 puff 09/21/24 22:11 Albuterol Sulfate (*Sp) Aerosol 1 Puff INHALATION Q4HRT PRN shortness of breath or wheezing Alprazolam 0.25 mg 09/21/24 20:47 09/22/24 20:16 Alprazolam (*Crx) 0.25 Mg Tablet PO 0.25 mg BID PRN Administration anxiety Amitriptyline HCl 75 mg 09/21/24 21:00 09/22/24 20:06 Amitriptyline Hcl 25 Mg Tablet PO 75 mg QHS STEVIE Administration Dextrose 12.5 gm 09/23/24 06:24 09/23/24 06:38 Dextrose 50% 25 Gm/50 Ml Syringe IV PUSH 12.5 gm PRN PRN Administration Hypoglycemia Protocol Famotidine 20 mg 09/21/24 21:00 09/23/24 08:52 Famotidine 20 Mg Tablet PO 20 mg Q12HR STEVIE Administration Fluticasone Propionate 1 spray 09/21/24 21:00 09/23/24 08:51 Fluticasone Propionate 0.05% Na Spr 16 Gm Btl (*Bkc) NASAL 1 spray Q12HR STEVIE Administration Gabapentin 100 mg 09/21/24 21:00 09/22/24 20:07 Gabapentin 100 Mg Capsule PO 100 mg QHS STEVIE Administration Glucagon 1 mg 09/23/24 06:24 Glucagon For Inj 1 Mg Vial IM PRN PRN Hypoglycemia Protocol Glucose 15 gm 09/23/24 06:24 Glucose Oral Gel 15 Gm Of Glucse In 37.5 Gm Tube PO PRN PRN Hypoglycemia Protocol Heparin Sodium (Porcine) 5,000 units 09/22/24 09:00 09/23/24 08:53 Heparin Sodium 5,000 Units/Ml Vial SUB-Q 5,000 units Q12HR STEVIE Administration Sodium Chloride 1,000 mls @ 75 mls/hr 09/21/24 22:00 09/23/24 05:50 Normal Saline Iv IV CONT 75 mls/hr .[id number] STEVIE Administration Dextrose 1,000 mls @ 100 mls/hr 09/23/24 06:24 Dextrose 5% 1,000 Ml IVPB PRN PRN Hypoglycemia Protocol Lisinopril 5 mg 09/22/24 09:00 09/23/24 08:52 Lisinopril 5 Mg Tablet PO 5 mg DAILY STEVIE Administration Miscellaneous Information 1 each 09/22/24 00:01 Naldemedine Is Nonformulary, Please Clarify XX 10/22/24 00:00 CLARIFY STEVIE Morphine Sulfate 4 mg 09/21/24 21:58 09/23/24 08:53 Morphine Sulfate (*Crx) 4 Mg/Ml Inj IV PUSH 4 mg Q4H PRN Administration Pain Rated 7-10 Non-Formulary Medication 200 mg 09/22/24 09:00 Calcium Citrate PO 10/22/24 08:59 DAILY [facility] Non-Formulary Medication 0.2 mg 09/23/24 09:00 Naldemedine PO 10/23/24 08:59 QAM STEVIE Ondansetron HCl 4 mg 09/21/24 18:25 09/22/24 20:06 Ondansetron Inj 4 Mg/2 Ml Vial IV PUSH 4 mg Q4H PRN Administration Nausea Pantoprazole Sodium 40 mg 09/22/24 09:00 09/23/24 08:52 Pantoprazole 40 Mg Tablet PO 40 mg QAM STEVIE Administration Polyethylene Glycol 17 gm 09/21/24 21:00 09/23/24 08:52 Polyethylene Glycol 3350 17 Gm Powd.Pack PO 17 gm QID STEVIE Administration Simethicone 125 mg 09/22/24 20:09 09/23/24 08:52 Simethicone 125 Mg Chew Tab PO 125 mg QID PRN Administration Gas Discomfort Radiology Results: ITS Impressions Abdomen/Pelvis CT 09/21/24 16:15 IMPRESSION: 1. No flow seen in the aorta suggestive of occlusion below the renal arteries. 2. Fecal material loaded in the bowel in the left side of the abdomen most likely in the colon with thickened wall which may indicate colitis. Ischemia cannot be excluded. Clinical correlation and follow-up advised. 3. Atrophic left kidney. 4. Adrenal mass in the left adrenal gland. Further evaluation with CT adrenal protocol or MRI is advised. Physician: Magdiel Quach MD was notified with the result of the patient at 4:57 PM on September 21, 2024 Enema w/Water Soluble 09/22/24 11:33 IMPRESSION: 1. Large volume of stool in the descending and transverse colon with distention of the colon. No stricture. Labs Labs: Laboratory Results - last 24 hr 09/23/24 09/23/24 09/23/24 04:32 05:39 06:14 WBC 14.4 H RBC 3.58 L Hgb 11.2 L Hct 36.3 L MCV 101.4 H MCH 31.3 MCHC 30.9 L RDW 13.0 Plt Count 519 H MPV 8.7 Immature Gran % (Auto) 0.5 Neut % (Auto) 78.4 H Lymph % (Auto) 13.4 L [place] % (Auto) 7.1 Eos % (Auto) 0.3 Baso % (Auto) 0.3 Lymph # (Auto) 1.93 [place] # (Auto) 1.0 H Eos # (Auto) 0.0 Baso # (Auto) 0.1 Abs Immat Gran (auto) 0.07 H Absolute Neuts (auto) 11.3 H Absolute Nucleated RBC 0.000 Nucleated RBC % 0.0 Sodium 138 Potassium 3.7 Chloride 110 H Carbon Dioxide 15 L Anion Gap 13 H BUN 10 D Creatinine 0.50 L Estim Creat Clear Calc 55 Estimated GFR > 60 Glucose 54 L* POC Capillary Glucose 63 L Calcium 8.5 Magnesium 2.3 Total Bilirubin 0.6 AST 65 H ALT 10 Alkaline Phosphatase 109 Total Protein 7.0 Albumin 3.4 L 09/23/24 06:51 WBC RBC Hgb Hct MCV MCH MCHC RDW Plt Count MPV Immature Gran % (Auto) Neut % (Auto) Lymph % (Auto) [place] % (Auto) Eos % (Auto) Baso % (Auto) Lymph # (Auto) [place] # (Auto) Eos # (Auto) Baso # (Auto) Abs Immat Gran (auto) Absolute Neuts (auto) Absolute Nucleated RBC Nucleated RBC % Sodium Potassium Chloride Carbon Dioxide Anion Gap BUN Creatinine Estim Creat Clear Calc Estimated GFR Glucose POC Capillary Glucose 216 H Calcium Magnesium Total Bilirubin AST ALT Alkaline Phosphatase Total Protein Albumin Quality VTE Prophylaxis VTE prophylaxis: pharmacologic ordered (Heparin 5000 units subQ q.12 hours)
[2024-09-23] MEDS: DEXTROSE 5%/0.9% SOD CHL 1,000 ML 50 ML IV CONT (11:11)
[2024-09-23 12:05] LABS: Glucose Point of Care 82 mg/dl (65-105)
[2024-09-23 14:00] VITALS: BP 164/83; PULSE 84; RESP 16; TEMP 36.6; O2SAT 97
[2024-09-23 17:55] LABS: Glucose Point of Care 100 mg/dl (65-105)
[2024-09-23] MEDS: AMITRIPTYLINE HCL 25 MG TABLET 75 MG PO (20:31)
[2024-09-23] MEDS: GABAPENTIN 100 MG CAPSULE PO (20:31)
[2024-09-23 21:01] VITALS: BP 145/72; PULSE 84; RESP 18; TEMP 36.7; O2SAT 100
[2024-09-24 00:04] LABS: Glucose Point of Care 124 mg/dl (65-105)
[2024-09-24] MEDS: MORPHINE SULFATE (*CRX) 4 MG/ML INJ IV PUSH (04:33)
[2024-09-24 05:13] LABS: Basophils Percent Auto 0.4 % (0.2-1.2); Eosinophils Absolute Auto 0.1 K/mm3 (0-0.3); Eosinophils Percent Auto 1.1 % (0-4.4); Hematocrit 31.8 % (37.0-47.0); Hemoglobin 10.1 g/dL (12.0-15.0); Immature Granulocyte Absolute 0.04 K/mm3 (0.00-0.031); Immature Granulocyte Percent A 0.4 % (0-0.5); Lymphocytes Absolute Auto 1.75 K/mm3 (0.9-3.2); Mean Corpuscular HGB Conc 31.8 g/dl (32-36); Mean Corpuscular Hemoglobin 31.5 pg (26-34); Mean Corpuscular Volume 99.1 fl (80-100); Monocytes Absolute Auto 0.9 K/mm3 (0.1-0.6); Monocytes Percent Auto 9.1 % (2.6-8.5); Neutrophils Absolute Auto 6.9 K/mm3 (1.3-6.7); Platelet Count Result 488 k/mm3 (150-375); Red Blood Count 3.21 M/mm3 (4.2-5.4); Red Cell Distribution Width 12.6 % (11.5-14.5); White Blood Count 9.7 K/mm3 (4.5-10.0)
[2024-09-24 05:25] LABS: Alanine Aminotransferase 11 U/L (6-35); Alkaline Phosphatase 107 U/L (38-126); Anion Gap 7 mmol/L (4-12); Aspartate Amino Transferase 23 U/L (14-36); Bilirubin,Total 0.4 mg/dL (0.2-1.3); Blood Urea Nitrogen 3 mg/dL (7-17); Calcium 8.3 mg/dL (8.4-10.2); Carbon Dioxide 25 mmol/L (22-30); Chloride 107 mmol/L (98-107); Estimated CRCL calculation 55 ml/min; Estimated Glomerular Filt Rate > 60; Glucose 96 mg/dL (65-110); Magnesium 1.8 mg/dL (1.6-2.3); Potassium 3.9 mmol/L (3.4-5.0); Sodium 139 mmol/L (137-145)
[2024-09-24 06:00] VITALS: BP 161/64; PULSE 79; RESP 18; TEMP 36.8; O2SAT 98
[2024-09-24] MEDS: LINACLOTIDE 145 MCG CAPSULE PO (06:01)
[2024-09-24 06:45] LABS: Glucose Point of Care 88 mg/dl (65-105)
--- NOTE | 2024-09-24 07:10 | P.PNIM_ITS ---
Progress Note: A&P Assessment and Plan (1) Stercoral colitis: Code(s): K52.89 - Other specified noninfective gastroenteritis and colitis Status: Acute Assessment and Plan: Patient has CT findings concerning for colitis either sterocolitis or ischemic. This is complicated by patient's chronic history of narcotic/opiate dependence likely leading to primary cause of constipation. Last bowel movement 09/[address] of the abdomen pelvis also demonstrated severe aortic stenosis with no blood flow below the renal arteries. * WBC 17.6, lactic normal 0.9 * Started on Zosyn--trend WBC * Clinically looks dry, started on IVF NS at 75 ml per hour. Episode of hypoglycemia this morning. Switched IV fluids to D5NS at 50 ml per hour. * Poor appetite given lack of bowel movement in 3 weeks. * Will advance diet to low fiber. (2) Constipation: Qualifiers: Constipation type: drug induced constipation Qualified Code(s): K59.03 - Drug induced constipation Code(s): K59.00 - Constipation, unspecified Status: Acute Assessment and Plan: The patient was treated with magnesium citrate, Relistor and Zosyn in the ER. * Will try to minimize narcotic use. Will continue patient's home amitriptyline and Neurontin. Patient may benefit from Movantik as outpatient. * Colace enema was order this morning with no results. * QID miralax * Will repeat CBC and electrolyte panel in a.m. * general surgery was consulted and recommended GI consult. They have also ordered x-ray with enema water soluble contrast which can be both diagnostic and palliative. They have signed off. * Patient reports she has never been on any motility agents like Linzess. She normally has a bowel movement every 3-4 days. She does not normally take a bowel regimen. She did try an over the counter stool softener prior to coming to the hospital. * GI consulted by surgery for chronic constipation, recommended starting Naldemedine 0.2 mg (non-formularly) or QID miralax and outpatient follow up. * Patient had lactulose enema last night with small brown, soft stool. * Linzess 145 mcg daily ordered to start today will need pre-auth at discharge.. Patient had a lactulose enema last night with good results. She had an episode of hypoglycemia this morning on am labs (54 g/dl) and received 12.5 mg of D50 push. She has not been taking in much oral intake due to the abdominal pain and constipation. Will advance her diet to low fiber today since she has had a bowel movement. (3) Abdominal aortic stenosis: Code(s): Q25.1 - Coarctation of aorta Status: Acute Assessment and Plan: CT abdomen and pelvis showed no flow seen in aorta suggestive of occlusion below the renal arteries. able to doppler pedal pulses Atrophic left kidney. Adrenal mass in the left adrenal gland-further evaluation advised with CT adrenal protocol vs MRI. (4) Severe protein-calorie malnutrition: Code(s): E43 - Unspecified severe protein-calorie malnutrition Status: Acute Assessment and Plan: Patient would benefit from dietary supplementation with her chronic severe protein calorie malnutrition. Her outpatient visit from earlier this month indicates that the patient had lost another 2 lb between doctor's visits. Will consult dietitian for recommendations as to nutritional supplements. * low fiber diet and ensure TID * TSH normal * daily weight Subjective Date/time seen: 09/24/24 07:10 Interval history: 74-year-old female past medical history of COPD, essential hypertension, protein calorie malnutrition, chronic narcotic dependence due to back pain, chronic tobacco use, peripheral arterial disease status post iliac stents, chronic sinusitis and rhinitis who presented to the ER with constipation and abdominal pain, found to have Stercoral colitis. No acute events overnight. She reports less abdominal pain and passing some flatus. Had a small, soft stool last night. Blood glucose was low on am labs as she had not had much of an appetite. She is hoping she will be able to tolerate more PO intake now that her gut is starting to work. Review of Systems Review of Systems: 12 systems were reviewed with pertinent positives and negatives per HPI. Except as documented in the HPI, all other systems were reviewed and are negative. All systems reviewed & are unremarkable except as noted in HPI and below Exam Narrative: General: appears comfortable, in no acute distress, thin, muscle wasting Respiratory: breathing is unlabored with even chest rise/fall, lungs are clear without wheezing, rhonchi, and crackles Cardiovascular: Rate and rhythm regular, normal s1s2, no murmur Abdomen: Soft, flat, nondistended, mildly tender with palpation to left upper and left lower quadrant, active bowel sounds Extremities: No cyanosis, edema, clubbing. Pulses 2/2 Neuro: A&O x 4 Skin: Warm, dry, intact Const: Other: Frail, cachectic, no acute distress HENMT: Other: Mucous membranes are dry, tongue is erythematous and has deep fissures, edentulous in upper and lower jaw (patient is unable to wear dentures due to ill-fitting), head is normocephalic atraumatic Eyes: Other: Pupils are equal and reactive, no scleral icterus Neck: Other: No thyromegaly, no JVD Resp: Other: Clear to auscultation bilaterally, no increased work of breathing Cardio: Other: Regular rate, regular rhythm, 2+ bilateral radial pulses, weakly palpable left pedal pulse that is thready, pulses verified by Doppler ultrasound both bilateral pedal and posterior tibial GI: Other: Tender in the left lower quadrant and suprapubic region with palpable fullness of underlying structures, hypoactive bowel sounds, no peritoneal signs, nondistended : Other: Continent of urine Skin: Other: Generalized pallor, non jaundice Neuro: Other: Alert oriented x4, speech is clear, no facial asymmetry, no localizing neurologic deficits noted during the course of conversation Extrem: Other: No cyanosis, no edema, generalized muscle wasting, otherwise normal muscle tone, Demetri appearance to the skin of the feet however skin blanches and has 3-4 second cap refill, pulses as documented above Psych: Other: Appropriate mood and affect, pleasant and cooperative, judgment and insight intact Objective Data Vital Signs Vital Signs: Vital Signs - 24 hr 09/23/24 08:00 09/23/24 14:00 09/23/24 21:01 Temperature 97.8 F 98.1 F Pulse Rate 84 84 Respiratory Rate 16 18 Blood Pressure 164/83 H 145/72 H Pulse Oximetry 97 100 Oxygen Delivery Room Air 09/23/24 20:20 09/24/24 06:00 Temperature 98.2 F Pulse Rate 79 Respiratory Rate 18 Blood Pressure 161/64 H Pulse Oximetry 98 Oxygen Delivery Room Air Intake/Output Intake/Output: Intake & Output 09/21/24 09/22/24 09/23/24 09/24/24 23:59 23:59 23:59 23:59 Intake Total 1050 1370 1320 Output Total 250 300 202 Balance 800 1070 1118 Meds/Results Medications: Active Medications Generic Name Dose Route Start Last Admin Trade Name Freq PRN Reason Stop Dose Admin Acetaminophen 650 mg 09/21/24 18:25 Acetaminophen 325 Mg Tablet PO Q4H PRN Mild Pain (1-3) or Fever Albuterol 2 puff 09/21/24 22:11 Albuterol Sulfate (*Sp) Aerosol 1 Puff INHALATION Q4HRT PRN shortness of breath or wheezing Alprazolam 0.25 mg 09/21/24 20:47 09/22/24 20:16 Alprazolam (*Crx) 0.25 Mg Tablet PO 0.25 mg BID PRN Administration anxiety Amitriptyline HCl 75 mg 09/21/24 21:00 09/23/24 20:31 Amitriptyline Hcl 25 Mg Tablet PO 75 mg QHS STEVIE Administration Dextrose 12.5 gm 09/23/24 06:24 09/23/24 06:38 Dextrose 50% 25 Gm/50 Ml Syringe IV PUSH 12.5 gm PRN PRN Administration Hypoglycemia Protocol Famotidine 20 mg 09/21/24 21:00 09/23/24 20:31 Famotidine 20 Mg Tablet PO 20 mg Q12HR STEVIE Administration Fluticasone Propionate 1 spray 09/21/24 21:00 09/23/24 20:31 Fluticasone Propionate 0.05% Na Spr 16 Gm Btl (*Bkc) NASAL 1 spray Q12HR STEVIE Administration Gabapentin 100 mg 09/21/24 21:00 09/23/24 20:31 Gabapentin 100 Mg Capsule PO 100 mg QHS STEVIE Administration Glucagon 1 mg 09/23/24 06:24 Glucagon For Inj 1 Mg Vial IM PRN PRN Hypoglycemia Protocol Glucose 15 gm 09/23/24 06:24 Glucose Oral Gel 15 Gm Of Glucse In 37.5 Gm Tube PO PRN PRN Hypoglycemia Protocol Heparin Sodium (Porcine) 5,000 units 09/22/24 09:00 09/23/24 20:30 Heparin Sodium 5,000 Units/Ml Vial SUB-Q 5,000 units Q12HR STEVIE Administration Dextrose 1,000 mls @ 100 mls/hr 09/23/24 06:24 Dextrose 5% 1,000 Ml IVPB PRN PRN Hypoglycemia Protocol Dextrose/Sodium Chloride 1,000 mls @ 50 mls/hr 09/23/24 11:00 09/23/24 11:11 Dextrose 5% Sodium Chloride 0.9% IV CONT 50 mls/hr .Q20H STEVIE Administration Linaclotide 145 mcg 09/24/24 06:30 09/24/24 06:01 Linaclotide 145 Mcg Capsule PO 145 mcg DAILY@0630 STEVIE Administration Lisinopril 5 mg 09/22/24 09:00 09/23/24 08:52 Lisinopril 5 Mg Tablet PO 5 mg DAILY STEVIE Administration Morphine Sulfate 4 mg 09/21/24 21:58 09/24/24 04:33 Morphine Sulfate (*Crx) 4 Mg/Ml Inj IV PUSH 4 mg Q4H PRN Administration Pain Rated 7-10 Ondansetron HCl 4 mg 09/21/24 18:25 09/22/24 20:06 Ondansetron Inj 4 Mg/2 Ml Vial IV PUSH 4 mg Q4H PRN Administration Nausea Pantoprazole Sodium 40 mg 09/22/24 09:00 09/23/24 08:52 Pantoprazole 40 Mg Tablet PO 40 mg QAM STEVIE Administration Polyethylene Glycol 17 gm 09/21/24 21:00 09/23/24 12:54 Polyethylene Glycol 3350 17 Gm Powd.Pack PO 17 gm QID STEVIE Administration Simethicone 125 mg 09/22/24 20:09 09/23/24 20:31 Simethicone 125 Mg Chew Tab PO 125 mg QID PRN Administration Gas Discomfort Radiology Results: ITS Impressions Abdomen/Pelvis CT 09/21/24 16:15 IMPRESSION: 1. No flow seen in the aorta suggestive of occlusion below the renal arteries. 2. Fecal material loaded in the bowel in the left side of the abdomen most likely in the colon with thickened wall which may indicate colitis. Ischemia cannot be excluded. Clinical correlation and follow-up advised. 3. Atrophic left kidney. 4. Adrenal mass in the left adrenal gland. Further evaluation with CT adrenal protocol or MRI is advised. Physician: Magdiel Quach MD was notified with the result of the patient at 4:57 PM on September 21, 2024 Enema w/Water Soluble 09/22/24 11:33 IMPRESSION: 1. Large volume of stool in the descending and transverse colon with distention of the colon. No stricture. Labs Labs: Laboratory Results - last 24 hr 09/23/24 09/23/24 09/24/24 12:01 17:52 00:02 WBC RBC Hgb Hct MCV MCH MCHC RDW Plt Count MPV Immature Gran % (Auto) Neut % (Auto) Lymph % (Auto) [place] % (Auto) Eos % (Auto) Baso % (Auto) Lymph # (Auto) [place] # (Auto) Eos # (Auto) Baso # (Auto) Abs Immat Gran (auto) Absolute Neuts (auto) Absolute Nucleated RBC Nucleated RBC % Sodium Potassium Chloride Carbon Dioxide Anion Gap BUN Creatinine Estim Creat Clear Calc Estimated GFR Glucose POC Capillary Glucose 82 100 124 H Calcium Magnesium Total Bilirubin AST ALT Alkaline Phosphatase Total Protein Albumin 09/24/24 09/24/24 04:07 06:29 WBC 9.7 RBC 3.21 L Hgb 10.1 L Hct 31.8 L MCV 99.1 MCH 31.5 MCHC 31.8 L RDW 12.6 Plt Count 488 H MPV 9.0 Immature Gran % (Auto) 0.4 Neut % (Auto) 71.0 Lymph % (Auto) 18.0 L [place] % (Auto) 9.1 H Eos % (Auto) 1.1 Baso % (Auto) 0.4 Lymph # (Auto) 1.75 [place] # (Auto) 0.9 H Eos # (Auto) 0.1 Baso # (Auto) 0.0 Abs Immat Gran (auto) 0.04 H Absolute Neuts (auto) 6.9 H Absolute Nucleated RBC 0.000 Nucleated RBC % 0.0 Sodium 139 Potassium 3.9 Chloride 107 Carbon Dioxide 25 Anion Gap 7 BUN 3 L D Creatinine 0.50 L Estim Creat Clear Calc 55 Estimated GFR > 60 Glucose 96 POC Capillary Glucose 88 Calcium 8.3 L Magnesium 1.8 Total Bilirubin 0.4 AST 23 ALT 11 Alkaline Phosphatase 107 Total Protein 6.0 L Albumin 3.0 L Quality VTE Prophylaxis VTE prophylaxis: pharmacologic ordered (Heparin 5000 units subQ q.12 hours)
[2024-09-24] MEDS: DEXTROSE 5%/0.9% SOD CHL 1,000 ML 50 ML IV CONT (07:25)
[2024-09-24] MEDS: PANTOPRAZOLE 40 MG TABLET PO (08:27)
[2024-09-24] MEDS: lisinopriL 5 MG TABLET PO (08:27)
[2024-09-24] MEDS: HEPARIN SODIUM 5,000 UNITS/ML VIAL 5000 UNITS SUB-Q (08:28)
[2024-09-24] MEDS: FAMOTIDINE 20 MG TABLET PO (08:28)
[2024-09-24] MEDS: SIMETHICONE 125 MG CHEW TAB PO (08:40)
[2024-09-24 09:48] VITALS: O2SAT 98
--- NOTE | 2024-09-24 10:34 | P.DS_ITS ---
DS: Admitting Diagnosis Discharge Date 09/24/2024 Admitting Diagnosis stercoral colitis DS: Discharge Diagnosis Discharge Diagnosis (1) Stercoral colitis: Code(s): K52.89 - Other specified noninfective gastroenteritis and colitis Status: Acute Assessment and Plan: Patient has CT findings concerning for colitis either sterocolitis or ischemic. This is complicated by patient's chronic history of narcotic/opiate dependence likely leading to primary cause of constipation. Last bowel movement 09/[address] of the abdomen pelvis also demonstrated severe aortic stenosis with no blood flow below the renal arteries. * WBC 17.6, lactic normal 0.9 * Started on Zosyn--trend WBC * Clinically looks dry, started on IVF NS at 75 ml per hour. Episode of hypoglycemia this morning. Switched IV fluids to D5NS at 50 ml per hour. * Poor appetite given lack of bowel movement in 3 weeks. * Will advance diet to low fiber. (2) Constipation: Qualifiers: Constipation type: drug induced constipation Qualified Code(s): K59.03 - Drug induced constipation Code(s): K59.00 - Constipation, unspecified Status: Acute Assessment and Plan: The patient was treated with magnesium citrate, Relistor and Zosyn in the ER. * Will try to minimize narcotic use. Will continue patient's home amitriptyline and Neurontin. Patient may benefit from Movantik as outpatient. * Colace enema was order this morning with no results. * QID miralax * Will repeat CBC and electrolyte panel in a.m. * general surgery was consulted and recommended GI consult. They have also ordered x-ray with enema water soluble contrast which can be both diagnostic and palliative. They have signed off. * Patient reports she has never been on any motility agents like Linzess. She normally has a bowel movement every 3-4 days. She does not normally take a bowel regimen. She did try an over the counter stool softener prior to coming to the hospital. * GI consulted by surgery for chronic constipation, recommended starting Naldemedine 0.2 mg (non-formularly) or QID miralax and outpatient follow up. * Patient had lactulose enema last night with small brown, soft stool. * Linzess 145 mcg daily ordered to start today will need pre-auth at discharge.. Patient had a lactulose enema last night with good results. She had an episode of hypoglycemia this morning on am labs (54 g/dl) and received 12.5 mg of D50 push. She has not been taking in much oral intake due to the abdominal pain and constipation. Will advance her diet to low fiber today since she has had a bowel movement. (3) Abdominal aortic stenosis: Code(s): Q25.1 - Coarctation of aorta Status: Acute Assessment and Plan: CT abdomen and pelvis showed no flow seen in aorta suggestive of occlusion below the renal arteries. able to doppler pedal pulses Atrophic left kidney. Adrenal mass in the left adrenal gland-further evaluation advised with CT adrenal protocol vs MRI. (4) Severe protein-calorie malnutrition: Code(s): E43 - Unspecified severe protein-calorie malnutrition Status: Acute Assessment and Plan: Patient would benefit from dietary supplementation with her chronic severe prot ein calorie malnutrition. Her outpatient visit from earlier this month indicates that the patient had lost another 2 lb between doctor's visits. Will consult dietitian for recommendations as to nutritional supplements. * low fiber diet and ensure TID * TSH normal * daily weight DS: Summary Hospital Course Reason for hospitalization: stercoral colitis Hospital Course: 74-year-old female past medical history of COPD, essential hypertension, protein calorie malnutrition, chronic narcotic dependence due to back pain, chronic tobacco use, peripheral arterial disease status post iliac stents, chronic sinusitis and rhinitis who presented to the ER with constipation and abdominal pain. The patient reported to the ER staff that her last bowel movement was 09/01/2024. The patient reports that she has been having intermittent crampy sharp abdominal pain that feels like gas pains. She states that she last passed flatulence early this morning. She feels like she cannot pass gas CT she cannot get it past the stool. She has had absolutely no stool output since the . She reports that she usually has constipation but it will clear with the use of milk of magnesia and intermittent MiraLax. She usually goes 5-8 days between having bowel movements. However this time despite using MiraLax several times and milk of magnesia as well as Epsom salts she has not had a bowel movement. She did vomit when she tried Epsom salt a couple of days ago. She reports that her abdomen pain has gotten worse despite trying these measures. She has tried Gas-X to relieve her gas pain. In the ER she received a dose of magnesium citrate which she promptly vomited. She also received a dose of Relistor in the ER. She is on narcotics due to chronic back pain. She has been dependent on walking with 2 canes since she fell this past October. She lives in her own home and her daughter has cameras set up in her home to monitor her. She does report that she has been having more pain in her feet and they feel like they are going to sleep more so than the use 2. She reports that the pain is improved when she sits up in puts her feet on the floor. She has been having worsening leg pain that she attributes to her low back pain. The pain actually improves when she stands up in changes position. She has not noticed any specific episodes of claudication. In the ER staff was unable to palpate the patient's pedal and posterior tibial pulses. However at the time my evaluation I was able to obtain Doppler verification of both bilateral pedal and posterior tibial pulses. Posterior tibial pulses were much stronger obviously and the pedal pulse was stronger on the left compared to right. The patient reports chronic low appetite. She does get lightheaded with position changes which she relates to not eating much. Her daughter reports that patient will eat 3 aches and a piece of toast for breakfast. The patient will drink Ensure a couple of times a day. Despite these efforts patient has had a couple lb weight loss between prior doctor's visits. She reports that she has been having difficulty urinating and has to strain to urinate. On CT scan the patient's bladder did appear generous in size. She feels as if she is not emptying her bladder completely. Her urine has been darker than usual. She denies any hematuria, hematochezia or melena. Patient has CT findings concerning for colitis either sterocolitis or ischemic. This is complicated by patient's chronic history of narcotic/opiate dependence likely leading to primary cause of constipation. Last bowel movement 09/[address] of the abdomen pelvis also demonstrated severe aortic stenosis with no blood flow below the renal arteries. Patient was started on IV Zosyn for infection and IV fluids for dehydration. general surgery was consulted and recommended GI consult. They have also ordered x-ray with enema water soluble contrast which can be both diagnostic and Therapeutic. Patient had several bowel movements and was started Linzess with prescription at discharge. She was also worked up for malnutrition with a dietary consult and recommendations for Ensure shakes. Patient was discharged on a low-fiber diet and aggressive bowel protocol. Hospital course was uneventful. Status at Discharge Functional status at discharge: independent ambulation Time Spent with Patient Time attestation: Total time spent providing and/or coordinating discharge services: Time spent: Greater than 30 minutes Exam Narrative: General: appears comfortable, in no acute distress, thin, muscle wasting Respiratory: breathing is unlabored with even chest rise/fall, lungs are clear without wheezing, rhonchi, and crackles Cardiovascular: Rate and rhythm regular, normal s1s2, no murmur Abdomen: Soft, flat, nondistended, mildly tender with palpation to left upper and left lower quadrant, active bowel sounds Extremities: No cyanosis, edema, clubbing. Pulses 2/2 Neuro: A&O x 4 Skin: Warm, dry, intact Const: Other: Frail, cachectic, no acute distress HENMT: Other: Mucous membranes are dry, tongue is erythematous and has deep fissures, edentulous in upper and lower jaw (patient is unable to wear dentures due to ill-fitting), head is normocephalic atraumatic Eyes: Other: Pupils are equal and reactive, no scleral icterus Neck: Other: No thyromegaly, no JVD Resp: Other: Clear to auscultation bilaterally, no increased work of breathing Cardio: Other: Regular rate, regular rhythm, 2+ bilateral radial pulses, weakly palpable left pedal pulse that is thready, pulses verified by Doppler ultrasound both bilateral pedal and posterior tibial GI: Other: Tender in the left lower quadrant and suprapubic region with palpable fullness of underlying structures, hypoactive bowel sounds, no peritoneal signs, nondistended : Other: Continent of urine Skin: Other: Generalized pallor, non jaundice Neuro: Other: Alert oriented x4, speech is clear, no facial asymmetry, no localizing neurologic deficits noted during the course of conversation Extrem: Other: No cyanosis, no edema, generalized muscle wasting, otherwise normal muscle tone, Demetri appearance to the skin of the feet however skin blanches and has 3-4 second cap refill, pulses as documented above Psych: Other: Appropriate mood and affect, pleasant and cooperative, judgment and insight intact DS: Data Data Completed and Pending Labs on day of discharge: Labs from last 24 hours 11/09/24/24 09/24/24 06:29 04:07 00:02 WBC 9.7 RBC 3.21 L Hgb 10.1 L Hct 31.8 L MCV 99.1 MCH 31.5 MCHC 31.8 L RDW 12.6 Plt Count 488 H MPV 9.0 Immature Gran % (Auto) 0.4 Neut % (Auto) 71.0 Lymph % (Auto) 18.0 L [place] % (Auto) 9.1 H Eos % (Auto) 1.1 Baso % (Auto) 0.4 Lymph # (Auto) 1.75 [place] # (Auto) 0.9 H Eos # (Auto) 0.1 Baso # (Auto) 0.0 Abs Immat Gran (auto) 0.04 H Absolute Neuts (auto) 6.9 H Absolute Nucleated RBC 0.000 Nucleated RBC % 0.0 Sodium 139 Potassium 3.9 Chloride 107 Carbon Dioxide 25 Anion Gap 7 BUN 3 L D Creatinine 0.50 L Estim Creat Clear Calc 55 Estimated GFR > 60 Glucose 96 POC Capillary Glucose 88 124 H Calcium 8.3 L Magnesium 1.8 Total Bilirubin 0.4 AST 23 ALT 11 Alkaline Phosphatase 107 Total Protein 6.0 L Albumin 3.0 L 09/23/24 09/23/24 17:52 12:01 WBC RBC Hgb Hct MCV MCH MCHC RDW Plt Count MPV Immature Gran % (Auto) Neut % (Auto) Lymph % (Auto) [place] % (Auto) Eos % (Auto) Baso % (Auto) Lymph # (Auto) [place] # (Auto) Eos # (Auto) Baso # (Auto) Abs Immat Gran (auto) Absolute Neuts (auto) Absolute Nucleated RBC Nucleated RBC % Sodium Potassium Chloride Carbon Dioxide Anion Gap BUN Creatinine Estim Creat Clear Calc Estimated GFR Glucose POC Capillary Glucose 100 82 Calcium Magnesium Total Bilirubin AST ALT Alkaline Phosphatase Total Protein Albumin Discharge Plan Discharge Consulting providers: Bárbara Nguyen; Suha Bosch; Marcel Edmond; Enmanuel Hoover; Izaiah Stratton V.; Fredrick Tadeo; Jannette Leahy Discharging Clinician: Jannette Leahy Anticipated Discharge Date/Time: 09/24/24 10:35 Patient Disposition: Home, Self-Care Activity: may shower Diet: low fiber Discharge Instructions: Discharge instructions: Take medications as prescribed New medications prescribed: Linzess for chronic constipation, you will need to follow-up her primary care provider for refills you need to take MiraLax and stool softener every, Goal to have a bowel movement every day to every other day You are activity as tolerated Monitor blood pressures Avoid social areas, you wear a mask when in social settings Encouraged to continue with yearly vaccinations Return to the emergency department if he developed sudden shortness of breath, chest pain, nausea, vomiting, upset stomach or intractable diarrhea Return to the emergency department if you develop fever greater than 101.5 Follow-up with: Your primary care physician within 1-2 weeks for post hospitalization check up Thank you for [facility] for your healthcare needs Patient Instructions: Antibiotic Form, Constipation (DC), Pain Management (DC) Stand Alone Forms: General Discharge Information Follow-up/Referrals: Corby Ahumada MD [Primary Care Provider] - 3 Weeks Marcel Edmond MD [Physician] - 4 Weeks Discharge Medications: New Linzess 145 mcg Capsule 145 mcg PO DAILY@0630 90 Days Qty: 90 0RF Continued fluticasone propionate [Flonase Allergy Relief] 50 mcg/actuation spray,suspension 1 spray NASAL BID Qty: 16 11RF Rx Instructions: administer into each nostril gabapentin 100 mg capsule 100 mg PO QHS Qty: 90 3RF famotidine 20 mg tablet 20 mg PO BID PRN (Reason: heartburn) Qty: 60 11RF alprazolam 0.25 mg tablet 0.25 mg PO BID PRN (Reason: anxiety) Qty: 30 5RF Rx Instructions: take 1/2 or 1 tablet up to twice daily as needed for severe anxiety only lisinopril 5 mg tablet 5 mg PO DAILY Qty: 90 3RF albuterol sulfate 90 mcg/actuation HFA aerosol inhaler 2 puff INHALATION Q4H PRN (Reason: shortness of breath or wheezing) Qty: 8.5 11RF pantoprazole [Protonix] 40 mg tablet,delayed release (DR/EC) 40 mg PO QAM Qty: 90 3RF calcium citrate 200 mg (950 mg) tablet 200 mg PO DAILY Centrum Silver Women 8 mg iron-400 mcg-300 mcg tablet 1 tablet PO DAILY amitriptyline 75 mg tablet 75 mg PO . q.h.s. Qty: 30 11RF oxycodone-acetaminophen [Percocet] 10-325 mg tablet 1 tablet PO Q4H PRN (Reason: pain) Qty: 180 0RF Date of admission: 09/21/24 18:25 Primary Care Provider: Corby Ahumada Admitting Provider: David Lobo Attending physician on admission: Tracy Del Cid Condition: Stable Quality VTE Prophylaxis VTE prophylaxis: pharmacologic ordered (Heparin 5000 units subQ q.12 hours) Hospitalist MIPS Heart Failure (Exclusion) Patient has history of Heart Transplant or Left Ventricular Assistive Device?: No IF YES, STOP HERE Heart Failure (Qualifier) Patient has current or prior documentation of LVEF less than or equal to 40%, or mod/servere depressed LVSF?: No IF NO, STOP HERE
[2024-09-24 11:56] LABS: Glucose Point of Care 118 mg/dl (65-105)
[2024-09-24] MEDS: oxyCODONE/ACETAMINOPHEN (*CRX) 10-325 MG TABLET 1 TAB PO (13:36)
== END 2024-09-24 14:20 | disposition home or self-care (01) ==
LOC: ANHED 14:03 → ANH3MEDSUR 19:50 → ANH2MED 19:53
PROVIDERS: Internal Medicine; Admitting Provider Internal Medicine; Emergency Provider Emergency Medicine; PCP Family Medicine; Visit Provider Nurse Practitioner Acute Care
DX: K52.89 Other specified noninfective gastroenteritis and colitis (principal); K59.03 Drug induced constipation; F11.20 Opioid dependence, uncomplicated; Q25.1 Coarctation of aorta; E43 Unspecified severe protein-calorie malnutrition; Z68.1 Body mass index [BMI] 19.9 or less, adult; D72.829 Elevated white blood cell count, unspecified; M54.9 Dorsalgia, unspecified; G89.29 Other chronic pain; J44.9 Chronic obstructive pulmonary disease, unspecified; F17.210 Nicotine dependence, cigarettes, uncomplicated; I10 Essential (primary) hypertension; I70.0 Atherosclerosis of aorta; M81.0 Age-related osteoporosis without current pathological fracture; E78.2 Mixed hyperlipidemia; R39.198 Other difficulties with micturition; I73.9 Peripheral vascular disease, unspecified; K21.9 Gastro-esophageal reflux disease without esophagitis; J32.9 Chronic sinusitis, unspecified; Z66 Do not resuscitate; Z79.51 Long term (current) use of inhaled steroids; Z79.899 Other long term (current) drug therapy; Z95.820 Peripheral vascular angioplasty status with implants and grafts
CPT/HCPCS: 36415; 74177; 74270; 80048; 80053; 82948; 83605; 83690; 83735; 84100; 84443; 85025; 96361; 96365; 96366; 96372; 96375; 96376; 99285; A9270; G0378; J1644; J2212; J2270; J2405; J2543; J7030; J7042; Q9967

== ENCOUNTER 2024-10-02 20:30 | Inpatient (IN) | payer MEDICARE, SELFPAY ==
--- NOTE | ~2024-10-02 | XR_ITS ---
EXAMINATION: XR enema water soluble DATE: 10/04/2024 09:52 INDICATION: Constipation TECHNIQUE: A first line supervisor radiograph was obtained. A catheter was inserted into the patient's rectum. Water- soluble contrast was infused by gravity. Fluoroscopic spot images and conventional radiographs were o btained. Fluoroscopy exposure time was 2.0 minutes. A total of 55 fluoroscopic images and 3 overhead radiographs were obtained. Total DAP was 44.343 Gycm^2 COMPARISON: 09/22/2024 FINDINGS: Sustainability Purchasing Agent radiograph demonstrates cholecystectomy clips in right upper quadrant with additional likely dr op clips in the left hemipelvis. Atherosclerotic calcific lesion along the abdominal aorta, splenic a nd bilateral iliac arteries. Aortobiiliac stenting. Lumbar levoscoliosis with severe spondylosis. Sustainability Purchasing Agent radiographs and subsequent images during contrast filling of the colon demonstrates a large alexandru unt of stool scattered throughout the colon extending to the cecum. There are couple diverticula walker g the descending colon. No evident fixed stricture or mucosal irregularity suspicious for malignancy. IMPRESSION: 1. Large amount of stool scattered throughout the colon. No fixed stricture or mucosal irregularity t o suggest malignancy. Reviewed, dictated and finalized at location A. CONSULTANT IMPRESSION: 1. Large amount of stool scattered throughout the colon. No fixed stricture or mucosal irregularity to suggest malignancy.
--- NOTE | ~2024-10-02 | CT_ITS ---
EXAMINATION: CT diagnostic chest wo con DATE: 10/04/2024 14:20 INDICATION: RUL airspace disease TECHNIQUE: Computed tomography (CT) of the chest was performed with 100 mL Omnipaque-350 intravenous contrast. Automated exposure control and iterative reconstruction technique were employed. The dose-l ength product was 130.93 mGy-cm. COMPARISON: 10/17/2009; x-ray chest 10/04/2022. FINDINGS: CHEST: Thoracic aorta: No significant dilation or calcification. Lung parenchyma and airways: 3.4 cm cavitary lesion in the right apex with irregular wall thickening. Moderate paraseptal and centrilobular emphysematous change. Left apical pleural scarring. Bibasilar atelectasis/scar. Scattered calcified granulomas Thoracic inlet, axillae and chest wall: No thyroid or soft tissue mass. No axillary lymphadenopathy. Mediastinum: Patulous fluid-filled esophagus. Dilated central pulmonary arteries as can be seen with pulmonary arterial hypertension. Small hiatal hernia. Heart and pericardium: Normal heart size. Trace pericardial fluid. Coronary artery calcifications: Heavy. Pleura: Small volume left and trace right pleural fluid. Upper abdomen: Status post cholecystectomy. Left renal atrophy. Retained contrast in the colon. Thoracic bones: No acute osseous finding in the chest. IMPRESSION: 3.4 cm right apical cavitary lesion with irregular wall thickening. Differential includes infection, malignancy, noninfectious granuloma, and pulmonary infarct with. Moderate emphysema. Small left and trace right pleural effusions. Reviewed, dictated and finalized at location K. STRIP FEEDER IMPRESSION: 3.4 cm right apical cavitary lesion with irregular wall thickening. Differentia l includes infection, malignancy, noninfectious granuloma, and pulmonary infarc t with. Moderate emphysema. Small left and trace right pleural effusions.
--- NOTE | ~2024-10-02 | CT_ITS ---
EXAMINATION: CT abdomen pelvis w con DATE: 10/03/2024 04:05 INDICATION: Left lower quadrant abdominal pain. TECHNIQUE: Computed tomography (CT) of the abdomen and pelvis was performed with 100 mL Omnipaque 350 intravenous contrast. Automated exposure control and iterative reconstruction technique were employe d. The dose-length product was 175.49 mGy-cm. COMPARISON: CT abdomen and pelvis 09/21/2024, 04/15/22 FINDINGS: The visualized portions of lung bases demonstrate moderate emphysema. There is a small left pleural effusion. The heart size is normal. No pericardial effusion. There is a small sliding hernia . The liver is normal. There are changes of cholecystectomy. The spleen, pancreas, and right adrenal gland are normal. There is a 2.2 cm mass in left adrenal gland, stable from 04/15/22, likely an adenom a. There is a 5 mm cyst in right kidney. There is severe atrophy of left kidney. There is a large vol ume of stool in the colon. There is wall thickening of the descending colon. There is fat stranding a round the descending and sigmoid colon. The rectum is decompressed. The appendix is dilated to 10 mm and contains appendicoliths, increased from 5 mm on 04/15/22. There is total occlusion of the juxtaren al aorta with reconstitution of flow in the common femoral arteries. There are no pathologically enla rged lymph nodes. There is no free intraperitoneal fluid. There is lumbar levoscoliosis and severe sp ondylosis. There are multiple chronic vertebral body fractures. There are changes of right vertebropl asty in L3. IMPRESSION: 1. Stercoral colitis. 2. Dilatation of the appendix, stable from 09/21/24 and worsened from 04/15/22. This finding may be se condary to stool impaction. No fat stranding around the appendix to suggest appendicitis. 3. Small left pleural effusion. Reviewed, dictated and finalized at location A. D COIL WINDER IMPRESSION: 1. Stercoral colitis. 2. Dilatation of the appendix, stable from 09/21/24 and worsened from 04/15/22. This finding may be secondary to stool impaction. No fat stranding around the a ppendix to suggest appendicitis. 3. Small left pleural effusion.
--- NOTE | ~2024-10-02 | CT_ITS ---
CT of the Abdomen and Pelvis: Indication: Abdominal pain Technique: 2.5 mm axial scans were obtained through the abdomen and pelvis following intravenous adm inistration of 96 cc of Omnipaque 350. Dose reduction technique was used on this scan by utilizing au tomated exposure control and iterative reconstruction technique. The dose-length product (DLP) was 20 6.06 mGy-cm. COMPARISON: 10/03/2024 Findings: Scans through the lung bases demonstrate partially imaged small to moderate left pleural e ffusion. Small right pleural effusion present. There is mild basilar atelectatic. Small hiatal hernia noted. The liver, spleen, pancreas, and right kidney are within normal limits. Stable bilateral adrenal nodu les. Cholecystectomy clips are present. Stable dilatation of the common bile duct. Left kidney is mar kedly atrophic. Extensive, severe atherosclerotic calcification of the aorta is present, with occlusi on of the infrarenal abdominal aorta. No lymphadenopathy. There is prominent, extensive distention of large bowel, with the area of apparent luminal narrowing at the distal sigmoid colon/proximal rectum (axial image [id number]). Small bowel is probably minimally diffusely distended, fluid-filled. Probable trace abdominal ascites. Images through the pelvis were performed. Urinary bladder unremarkable. No adnexal mass evident. Vert ebroplasty at L3 noted. Additional compression fractures of T12, L1, and L4 present. Impression: Extensive, prominent distention of most of the large bowel with an area of apparent luminal narrowing and abrupt caliber change at the distal sigmoid colon/proximal rectum, as detailed above. Appearance is similar to prior exam. No definite mass lesion seen. This could reflect a colonic stricture versu s the possibility of a subtle infiltrating neoplasm, although again, no definite mass seen. Small to moderate left pleural effusion and small right pleural effusion. Extensive atherosclerotic calcification of the aorta with occlusion of the infrarenal abdominal aorta , unchanged. Stable bilateral adrenal nodules, indeterminate. Spinal compression fractures, as above. Reviewed, dictated and finalized at location M. YBOAT DECKHAND Impression: Extensive, prominent distention of most of the large bowel with an area of appa rent luminal narrowing and abrupt caliber change at the distal sigmoid colon/pr oximal rectum, as detailed above. Appearance is similar to prior exam. No defin ite mass lesion seen. This could reflect a colonic stricture versus the possibi lity of a subtle infiltrating neoplasm, although again, no definite mass seen. Small to moderate left pleural effusion and small right pleural effusion. Extensive atherosclerotic calcification of the aorta with occlusion of the infr arenal abdominal aorta, unchanged. Stable bilateral adrenal nodules, indeterminate. Spinal compression fractures, as above.
--- NOTE | ~2024-10-02 | XR_ITS ---
EXAMINATION: XR chest 1V DATE: 10/04/2024 08:37 INDICATION: Leukocytosis TECHNIQUE: frontal view of the chest was obtained. COMPARISON: Chest radiograph dated 01/01/2019 FINDINGS: No normal bones of the previously hyperexpanded lungs the latter consistent with emphysema which is b unique appreciated on CT of the abdomen and pelvis dated 10/19. Chronic biapical pleural-parenchymal scarring, right greater than left. There is increasing opacity in the right upper lung zone with arch itectural distortion and medial displacement of a calcified granuloma suggesting some associated volu me loss in right upper lobe. Mild opacities at the left lung base. No pneumothorax or definitive pleu ral effusion. The cardiomediastinal silhouette is normal. Partially visualized upper lumbar levoscoli osis with mild compensatory dextrocurvature of the thoracic spine. There is associated moderate thora cic and severe lumbar spondylosis. IMPRESSION: 1. Increasing opacities with some associated volume loss in the right upper lung zone consistent with atelectasis and could not exclude superimposed pneumonia or malignancy. Recommend either further presley luation with chest CT or short interval follow-up chest radiograph to document resolution. 2. Mild left basilar opacities and favor atelectasis over pneumonia. 3. Emphysema. Reviewed, dictated and finalized at location A. AL C DEVELOPER IMPRESSION: 1. Increasing opacities with some associated volume loss in the right upper desirae g zone consistent with atelectasis and could not exclude superimposed pneumonia or malignancy. Recommend either further evaluation with chest CT or short inte rval follow-up chest radiograph to document resolution. 2. Mild left basilar opacities and favor atelectasis over pneumonia. 3. Emphysema.
--- NOTE | ~2024-10-02 | XR_ITS ---
EXAMINATION: XR abdomen/kub 1V DATE: 10/09/2024 09:19 INDICATION: Abdominal distention TECHNIQUE: A supine view of the abdomen was obtained. COMPARISON: 10/06/2024 FINDINGS: Persistent distention of the colon which is filled with gas and a small amount of residual scattered oral contrast material related to the water-soluble enema performed 5 days prior. There is some resid ual stool in the distal colon. No dilated loops of gas-filled small bowel to suggest obstruction. Cho lecystectomy clips in the right upper quadrant and likely dropped clips in the left hemipelvis and ri ght mid abdomen. Mild left basilar atelectasis. Heart size is normal. Lumbar levoscoliosis with sever e spondylosis. A few chronic compression fractures in the lumbar and lower thoracic spine with prior L3 vertebroplasty. IMPRESSION: 1. Persistent gaseous distention of the colon with small distal colonic stool and small amount scatte red residual oral contrast material from water-soluble enema from 5 days prior. Reviewed, dictated and finalized at location A. PREPARER IMPRESSION: 1. Persistent gaseous distention of the colon with small distal colonic stool a nd small amount scattered residual oral contrast material from water-soluble en gaurav from 5 days prior.
[2024-10-02 20:54] VITALS: BP 145/94; PULSE 110; RESP 18; TEMP 36.9; O2SAT 98
[2024-10-02 22:57] LABS: Basophils Absolute Auto 0.1 K/mm3 (0.0-0.1); Basophils Percent Auto 0.4 % (0.2-1.2); Eosinophils Absolute Auto 0.2 K/mm3 (0-0.3); Eosinophils Percent Auto 0.7 % (0-4.4); Hematocrit 39.3 % (37.0-47.0); Hemoglobin 13.4 g/dL (12.0-15.0); Immature Granulocyte Absolute 0.11 K/mm3 (0.00-0.031); Immature Granulocyte Percent A 0.5 % (0-0.5); Lymphocytes Absolute Auto 1.08 K/mm3 (0.9-3.2); Lymphocytes Percent Auto 4.9 % (18.3-44.2); Mean Corpuscular HGB Conc 34.1 g/dl (32-36); Mean Corpuscular Hemoglobin 31.8 pg (26-34); Mean Corpuscular Volume 93.1 fl (80-100); Mean Platelet Volume 8.3 fl (7.4-10.4); Monocytes Absolute Auto 1.6 K/mm3 (0.1-0.6); Monocytes Percent Auto 7.2 % (2.6-8.5); Neutrophils Absolute Auto 18.9 K/mm3 (1.3-6.7); Neutrophils Percent Auto 86.3 % (45.5-73.1); Platelet Count Result 678 k/mm3 (150-375); Red Blood Count 4.22 M/mm3 (4.2-5.4); Red Cell Distribution Width 13.1 % (11.5-14.5); White Blood Count 21.9 K/mm3 (4.5-10.0)
[2024-10-02 23:08] LABS: INR 1.1; Prothrombin Time 14.9 Seconds (11.1-14.7)
[2024-10-02 23:09] LABS: Partial Thromboplastin Time 42.4 Seconds (22.3-36.8)
[2024-10-02 23:14] LABS: Alanine Aminotransferase 16 U/L (6-35); Albumin Level 3.4 g/dL (3.5-5.1); Alkaline Phosphatase 224 U/L (38-126); Anion Gap 5 mmol/L (4-12); Aspartate Amino Transferase 26 U/L (14-36); Bilirubin,Total 0.5 mg/dL (0.2-1.3); Blood Urea Nitrogen 10 mg/dL (7-17); Calcium 8.5 mg/dL (8.4-10.2); Carbon Dioxide 28 mmol/L (22-30); Chloride 102 mmol/L (98-107); Estimated CRCL calculation 45 ml/min; Estimated Glomerular Filt Rate > 60; Glucose 121 mg/dL (65-110); Potassium 3.2 mmol/L (3.4-5.0); Sodium 135 mmol/L (137-145)
[2024-10-03] VITALS (7 sets, daily range): BP systolic 136–176; BP diastolic 67–96; PULSE 98–101; RESP 14–20; TEMP 36.8–37.6; O2SAT 94–100; BMI 17.1
[2024-10-03] MEDS: SODIUM CHLORIDE 0.9% IV 2,000 ML 999 ML IV CONT (02:46)
[2024-10-03] MEDS: HYDROmorphone HCL INJ (*CRX) 1 MG/ML SYR 0.5 MG IV PUSH (02:47)
[2024-10-03] MEDS: PANTOPRAZOLE SODIUM IV 40 MG VIAL 80 MG IV PUSH (02:47)
[2024-10-03 02:53] LABS: Add Urine Microscopic? YES; Appearance Urine Clear (Clear); Bacteria Urine None Seen /hpf; Bilirubin Urine Negative (Negative); Blood Urine 1+ (Negative); Color Urine Yellow (Yellow); Glucose Urine UA Negative (Negative); Ketones Urine 1+ mg/dL (Negative); Leukocyte Esterase Ur Negative LEU/UL (Negative); Nitrate Urine Negative (Negative); Non Pathogenic Casts 0-2; Protein Urine 2+ mg/dL (Negative); Squamous Epithelial Cell Urine None Seen /hpf (Few); WBC Urine 0-5 /hpf (0-3)
[2024-10-03 02:57] LABS: Lactic Acid Reflex 1.9 mmol/L (0.7-2.0)
[2024-10-03 03:07] LABS: Amphetamine Screen Urine Negative (Negative); Barbiturate Screen Urine Negative (Negative); Benzodiazepines Screen Urine Positive (Negative); Cannabinoid Screen Urine Negative (Negative); Cocaine Screen Urine Negative (Negative); Methadone Screen Urine Negative (Negative); Opiate Screen Urine Positive (Negative); Phencyclidine Screen Urine Negative (Negative)
[2024-10-03 03:13] LABS: Ethanol < 10 mg/dL (<10)
[2024-10-03] MEDS: ONDANSETRON INJ 4 MG/2 ML VIAL IV PUSH (03:29)
--- NOTE | 2024-10-03 03:59 | ED.GENADULT ---
HPI - General Adult General Chief complaint: Abdominal Pain Stated complaint: abd pain, coffee ground emesis Time Seen by Provider: 10/03/24 02:01 History of Present Illness HPI narrative: This is a 74-year-old female presenting ED with chief complaint of abdominal pain. patient's left lower quadrant pain has been getting steadily worse since her admission 2 weeks ago for her chronic bowel syndrome. she had been taking the MiraLax several times today. She had also taken 1 dose of Linzess on Friday. After that she was in too much pain to take any more medication. This morning she started having dark emesis that the family describes as coffee-grounds. Family reports a 1 time temperature 100.3? home although they are unsure if it was real fever because she had been using a heat pack at the time for abdominal pain. Last bowel movement was 4-5 days ago. Patient still passing gas. Patient understands that she needs to wean herself off opiates. Related Data Home Medications Medication Instructions Recorded Confirmed calcium citrate 200 mg PO DAILY 09/28/19 09/21/24 [id number] 8 mg-folic 400 1 tablet PO DAILY 09/28/19 09/21/24 mcg-K 50 mcg-lutein 300 mcg tablet (Centrum Silver Women) Allergies Allergy/AdvReac Type Severity Reaction Status Date / Time No Known Allergies Allergy Mild Verified 10/02/24 20:31 [facility] Past Medical History Medical History Abdominal aortic atherosclerosis (~2021) severe proximal aortic atherosclerotic disease with stenosis on CT of the abdomen ER 04/15/2022. Abnormal fasting glucose Fasting glucose 102 with hemoglobin A1c 4.8 on 04/04/2022. Fasting glucose 104 on 12/03/2023. Age-related osteoporosis without current pathological fracture Anemia hemoglobin 11.4 on 04/04/2022. Hemoglobin 11.3 on 04/15/2022. Vitamin B12 was 1200 with folic acid greater than 24 and iron 47. hemoglobin 11.9 with iron 43 on 12/03/2023. Arrhythmia (~12/03/23) irregularly irregular rhythm on 12/03/2023. Chronic bilateral low back pain Chronic depression Chronic obstructive pulmonary disease, unspecified Essential hypertension GERD (gastroesophageal reflux disease) Insomnia Microscopic hematuria Mixed hyperlipidemia Total cholesterol 166, HDL 40, triglycerides 146 and LDL 101 with AST 19 and ALT 13 on 04/04/2022 with thyroid function normal with TSH 1.98 and free T4 1.3. Total cholesterol 186 with triglycerides 146 and HDL 40 on 12/03/2023. Peripheral vascular disease of lower extremity (~2007) history of stents distal aorta to the common iliac bilaterally 11/09/2007. Rhinitis Sinus arrhythmia (~12/03/23) no atrial fibrillation on EKG 12/03/2023. Sinus rhythm with sinus arrhythmia. Sinusitis Underweight due to inadequate caloric intake UTI (urinary tract infection) Vertigo Surgical History Surgical History Hx of cholecystectomy S/P peripheral artery angioplasty with stent placement The patient had attempt at stent placement our facility in 2006 but was unsuccessful. Evidently patient later had a secondary procedure at another facility but details are not available Family History Family History Father Family history of cardiovascular disease, Onset Age: 70 Mother Family history of malignant neoplasm, Onset Age: 60 Grandparent Family history of malignant neoplasm Social History Social History Social History: Patient lives in her own home. She raised 4 children. Her oldest son at age 39 of unknown causes. Her remaining children are in relatively good health. Her daughter Emily at bedside. The patient's has smoked up to a pack of cigarettes per day but has been down to half a pack per day for ?awhile.? She denies any significant history of alcohol use or illicit substance use. She used to work at [employer]. Code status: DNR/DNI (per patient request) Healthcare power of infantry senior sergeant: Emily Lopez Smoking packs per day: 0.5 Smoking cigarettes per day: 10.0 Years smoked: 60 Smoking pack-years: 30.00 Smoking status: Current every day smoker Alcohol intake: never Substance use: never Substance use type: does not use Do You Feel Safe in your Home?: Yes Lack of Transportation: No Lack of Food: Never True Current Housing: Decline to Answer Concerned About Future Housing: Decline to Answer Difficulty Paying Gas/Electric Bills: Decline to Answer Difficulty Paying for Meds: Decline to Answer Currently Unemployed: Decline to Answer Education: Decline to Answer Difficulty w/ Childcare or Family Care: Decline to Answer Spiritual care concerns: No Exam Narrative: APPEARANCE: No apparent distress. Head: atraumatic. EYES: EOMI, NOSE: Atraumatic NECK: Trachea midline RESPIRATORY: No increased rate of breathing clear to auscultation CARDIOVASCULAR: RRR, no peripheral ABDOMINAL: tenderness to palpation in the left lower quadrant, the rest the abdomen is soft without guarding or rebound MUSCULOSKELETAl: No obvious deformities NEURO: Alert. Moving 4/4 extremities SKIN:: Warm, dry. Normal color PSYCHIATRIC: Normal affect Course Vital Signs Vital signs: Vital Signs Temperature 98.4 F 10/02/24 20:54 Pulse Rate 110 H 10/02/24 20:54 Respiratory Rate 18 10/02/24 20:54 Blood Pressure 145/94 H 10/02/24 20:54 Pulse Oximetry 98 10/02/24 20:54 Oxygen Delivery Room Air 10/02/24 20:54 Temperature 98.4 F 10/02/24 20:54 Pulse Rate 101 H 10/03/24 02:53 Respiratory Rate 14 10/03/24 02:53 Blood Pressure 163/80 H 10/03/24 02:53 Pulse Oximetry 100 10/03/24 02:53 Oxygen Delivery Room Air 10/02/24 20:54 Medical Decision Making [facility] Narrative Medical decision making narrative: -Course: 74-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 On my initial examination patient was very uncomfortable and unfortunately received 1 dose of opiate pain medication before I had time to do a full chart review. CT showed fluid-filled nondilated loops of small and large bowel with mild bowel wall thickening. white count 21 0.9. Patient given a dose of methylnaltrexone, Pip/tazo, a soapsuds enema. Patient will be admitted to the hospital for management of her narcotic bowel syndrome. -DDX includes but is not limited to: Constipation, small-bowel obstruction, large-bowel obstruction -Co-morbidities complicating care: chronic opiate use, -Hx from independent Sources: daughter @ bedside -Independent interpretation of studies: white count 21.9, hemoglobin 13.4, platelets 678 metabolic panel showed potassium 3.2 which is being repleted be IV piggyback lactic 1.9 urine not indicative infection UDS positive for opiates and benzodiazepines -Discussion of Management/Consultants: Alonso -Shared decision making / Disposition:admitted. Vital Signs Vital Signs: Vital Signs Temperature 98.4 F 10/02/24 20:54 Pulse Rate 110 H 10/02/24 20:54 Respiratory Rate 18 10/02/24 20:54 Blood Pressure 145/94 H 10/02/24 20:54 Pulse Oximetry 98 10/02/24 20:54 Oxygen Delivery Room Air 10/02/24 20:54 Temperature 98.4 F 10/02/24 20:54 Pulse Rate 101 H 10/03/24 02:53 Respiratory Rate 14 10/03/24 02:53 Blood Pressure 163/80 H 10/03/24 02:53 Pulse Oximetry 100 10/03/24 02:53 Oxygen Delivery Room Air 10/02/24 20:54 Lab Data 10/02/24 22:50 10/02/24 22:50 Labs: Lab Results 10/02/24 10/03/24 10/03/24 Range/Units 22:50 02:19 02:20 WBC 21.9 H (4.5-10.0) K/mm3 RBC 4.22 (4.2-5.4) M/mm3 Hgb 13.4 D (12.0-15.0) g/dL Hct 39.3 (37.0-47.0) % MCV 93.1 (80-100) fl MCH 31.8 (26-34) pg MCHC 34.1 (32-36) g/dl RDW 13.1 (11.5-14.5) % Plt Count 678 H (150-375) k/mm3 MPV 8.3 (7.4-10.4) fl Immature Gran % (Auto) 0.5 (0-0.5) % Neut % (Auto) 86.3 H (45.5-73.1) % Lymph % (Auto) 4.9 L (18.3-44.2) % [place] % (Auto) 7.2 (2.6-8.5) % Eos % (Auto) 0.7 (0-4.4) % Baso % (Auto) 0.4 (0.2-1.2) % Lymph # (Auto) 1.08 (0.9-3.2) K/mm3 [place] # (Auto) 1.6 H (0.1-0.6) K/mm3 Eos # (Auto) 0.2 (0-0.3) K/mm3 Baso # (Auto) 0.1 (0.0-0.1) K/mm3 Abs Immat Gran (auto) 0.11 H (0.00-0.031) K/mm3 Absolute Neuts (auto) 18.9 H (1.3-6.7) K/mm3 Absolute Nucleated RBC 0.000 (0.0-0.012) K/mm3 Nucleated RBC % 0.0 (0.0-0.2) % PT 14.9 H (11.1-14.7) Seconds INR 1.1 APTT 42.4 H (22.3-36.8) Seconds Sodium 135 L (137-145) mmol/L Potassium 3.2 L (3.4-5.0) mmol/L Chloride 102 (98-107) mmol/L Carbon Dioxide 28 (22-30) mmol/L Anion Gap 5 (4-12) mmol/L BUN 10 D (7-17) mg/dL Creatinine 0.60 L (0.7-1.0) mg/dL Estim Creat Clear Calc 45 ml/min Estimated GFR > 60 (59 - ) Glucose 121 H (65-110) mg/dL Lactic Acid 1.9 (0.7-2.0) mmol/L Calcium 8.5 (8.4-10.2) mg/dL Total Bilirubin 0.5 (0.2-1.3) mg/dL AST 26 (14-36) U/L ALT 16 (6-35) U/L Alkaline Phosphatase 224 H (38-126) U/L Total Protein 7.0 (6.3-8.2) g/dL Albumin 3.4 L (3.5-5.1) g/dL Urine Color Yellow (Yellow) Urine Appearance Clear (Clear) Urine pH 6.0 (5.0-9.0) Ur Specific [place] 1.020 (1.001-1.035) Urine Protein 2+ H (Negative) mg/dL Urine Glucose (UA) Negative (Negative) mg/dL Urine Ketones 1+ H (Negative) mg/dL Ur Blood (Man) 1+ H (Negative) Urine Nitrate Negative (Negative) Urine Bilirubin Negative (Negative) Urine Urobilinogen 1.0 (<2.0) mg/dL Leukocyte Esterase Rfl Negative (Negative) LADARIUS/UL Urine RBC 11-20 H (0-2) /hpf Urine WBC 0-5 (0-3) /hpf Ur Squamous Epith Cells None seen (Few) /hpf Urine Bacteria None seen /hpf Urine Casts 0-2 Urine Opiates Screen Positive A (Negative) Urine Methadone Screen Negative (Negative) Ur Barbiturates Screen Negative (Negative) Ur Phencyclidine Scrn Negative (Negative) Ur Amphetamine Screen Negative (Negative) U Benzodiazepines Scrn Positive A (Negative) Urine Cocaine Screen Negative (Negative) U Cannabinoids Screen Negative (Negative) Ethyl Alcohol < 10 (<10) mg/dL Blood Type AB Positive Antibody Screen Negative Discharge Plan Discharge Clinical Impression: Narcotic bowel syndrome Patient Disposition: Still a Patient Condition: Stable Instructions: Antibiotic Form Prescriptions: No Action fluticasone propionate [Flonase Allergy Relief] 50 mcg/actuation spray,suspension 1 spray NASAL BID Qty: 16 11RF Rx Instructions: administer into each nostril gabapentin 100 mg capsule 100 mg PO QHS Qty: 90 3RF famotidine 20 mg tablet 20 mg PO BID PRN (Reason: heartburn) Qty: 60 11RF alprazolam 0.25 mg tablet 0.25 mg PO BID PRN (Reason: anxiety) Qty: 30 5RF Rx Instructions: take 1/2 or 1 tablet up to twice daily as needed for severe anxiety only lisinopril 5 mg tablet 5 mg PO DAILY Qty: 90 3RF albuterol sulfate 90 mcg/actuation HFA aerosol inhaler 2 puff INHALATION Q4H PRN (Reason: shortness of breath or wheezing) Qty: 8.5 11RF pantoprazole [Protonix] 40 mg tablet,delayed release (DR/EC) 40 mg PO QAM Qty: 90 3RF Linzess 145 mcg Capsule 145 mcg PO DAILY@0630 90 Days Qty: 90 0RF calcium citrate 200 mg (950 mg) tablet 200 mg PO DAILY Centrum Silver Women 8 mg iron-400 mcg-300 mcg tablet 1 tablet PO DAILY amitriptyline 75 mg tablet 75 mg PO . q.h.s. Qty: 30 11RF oxycodone-acetaminophen [Percocet] 10-325 mg tablet 1 tablet PO Q4H PRN (Reason: pain) Qty: 180 0RF Follow-up/Referrals: Corby Ahumada MD [Primary Care Provider] -
[2024-10-03] MEDS: METHYLNALTREXONE 12 MG/0.6 ML VIAL SUB-Q (06:36)
[2024-10-03] MEDS: POTASSIUM CHLORIDE INJ 40 MEQ in SODIUM CHLORIDE 0.9% IV 500 ML 130 MEQ IVPB (06:37)
[2024-10-03] MEDS: PIPERACILLN/TAZ 3.375GM/NS50ML 3.375 GM/50 ML BAG IVPB ×3 (06:37→16:38)
[2024-10-03] MEDS: KETOROLAC 15 MG/ML VIAL (*BKC) IV PUSH (06:39)
--- NOTE | 2024-10-03 10:13 | ADMGEN ---
This patient, Parul Lopez, was admitted to [facility] Surg Room 323-01. Patient/family oriented to hospital policies and general routines including ID bracelet, bed and alarms, visiting hours, pain management, procedures, bathroom and other care routines, personal items, smoking policy, room service/diet, and visiting hours. Information on how to activate the Rapid Response Team has been discussed. Patient/Family are encouraged to report perceived risks to care and to ask questions if they do not understand what they are told or what they should do.
[2024-10-03] MEDS: IBUPROFEN IV 800 MG/200 ML 800 MG/200 ML BAG 400 MG IVPB (10:30)
[2024-10-03] MEDS: LACTATED RINGERS 1,000 ML 75 ML IV CONT (10:31)
--- NOTE | 2024-10-03 13:19 | PM.IMHP ---
H&P: HPI History of Present Illness Date/Time: 10/03/24 13:19 Chief Complaint: Abdominal pain Narrative: 74yo female with PAD, COPD, HTN and recently hospitalized with stercoral colitis here for abdominal pain. Patient was hospitalized on 09/21/24 for abdominal pain and found to have leukocytosis, stercoral ulcer, constipation and severe-protein calorie malnutrition. She was treated with Zosyn. GI consulted and patient underwent water soluble enema among other treatments with good results. No strictures noted by water soluble enema. She was discharged on 09/24/24 on Linzess. Since discharge, the family was worried about the high dose and cost of Linzness. Her doctor had samples of a lower dose and these were provided to the patient but only received them a few days ago. She only took one dose of the 72mg on 10/01. She has been taking Miralax at least twice daily since last discharge. Very few BMs but no melena or hematochezia. Last colonoscopy was 15-20 years. Last BM was 09/29.. Not eating much and family feels she has lost weight. She has mild lower extremity edema but this is chronic. She has chronic headaches but no chills, CP, palpitations, SOB, cough, dysuria or hematuria. She does have trouble emptying her bladder. She did have nausea and vomiting just prior to admission that was dark and described as coffee-ground by family. No new medication changes. Also with low grade fever but may have been associated with a heating pad. She presented to the ED for evaluation. In the ED, she was hemodynamically stable. HR 110. No fevers or hypoxia. WBC 22K. UA was not consistent with UTI. UDS positive for benzodiazepines and opiates (both of which are on her home med list). Alcohol <10. CT Abd/pelvis showing a large volume of stool in the colon with wall thickening on the descending colon and fat stranding around the descending and sigmoid colol. The appendix is dilated but this has been noted before. BCx collected. She was given Protonix, Dilaudid, Zofran, IV fluids, Zosyn, Relistor, Toradol and Ibuprofen. Potassium was 3.2 and this was replaced. She was admitted for further care. Review of Systems Review of Systems: All systems reviewed & are unremarkable except as noted in HPI and below PMFSH Past Medical History Medical History Abdominal aortic atherosclerosis (~2021) severe proximal aortic atherosclerotic disease with stenosis on CT of the abdomen ER 04/15/2022. Abnormal fasting glucose Fasting glucose 102 with hemoglobin A1c 4.8 on 04/04/2022. Fasting glucose 104 on 12/03/2023. Age-related osteoporosis without current pathological fracture Anemia hemoglobin 11.4 on 04/04/2022. Hemoglobin 11.3 on 04/15/2022. Vitamin B12 was 1200 with folic acid greater than 24 and iron 47. hemoglobin 11.9 with iron 43 on 12/03/2023. Arrhythmia (~12/03/23) irregularly irregular rhythm on 12/03/2023. Chronic bilateral low back pain Chronic depression Chronic obstructive pulmonary disease, unspecified Essential hypertension GERD (gastroesophageal reflux disease) Insomnia Microscopic hematuria Mixed hyperlipidemia Total cholesterol 166, HDL 40, triglycerides 146 and LDL 101 with AST 19 and ALT 13 on 04/04/2022 with thyroid function normal with TSH 1.98 and free T4 1.3. Total cholesterol 186 with triglycerides 146 and HDL 40 on 12/03/2023. Peripheral vascular disease of lower extremity (~2007) history of stents distal aorta to the common iliac bilaterally 11/09/2007. Rhinitis Sinus arrhythmia (~12/03/23) no atrial fibrillation on EKG 12/03/2023. Sinus rhythm with sinus arrhythmia. Sinusitis Underweight due to inadequate caloric intake UTI (urinary tract infection) Vertigo Surgical History Surgical History Hx of cholecystectomy S/P peripheral artery angioplasty with stent placement The patient had attempt at stent placement our facility in 2006 but was unsuccessful. Evidently patient later had a secondary procedure at another facility but details are not available Family History Family History Father Family history of cardiovascular disease, Onset Age: 70 Mother Family history of malignant neoplasm, Onset Age: 60 Grandparent Family history of malignant neoplasm Social History Social History (Updated 10/03/24 @ 14:40 by Brandon Alvarado MD) Social History: Patient lives in her own home. She raised 4 children. Her oldest son at age 39 of unknown causes. Her remaining children are in relatively good health. Her daughter Emily at bedside. The patient's has smoked up to a pack of cigarettes per day but has been down to half a pack per day for ?awhile.? She denies any significant history of alcohol use or illicit substance use. She used to work at [email or web address]. Code status: DNR/DNI Healthcare power of [place] attorney: Emily Lopez Smoking packs per day: 0.5 Smoking cigarettes per day: 10.0 Years smoked: 60 Smoking pack-years: 30.00 Smoking status: Current every day smoker Alcohol intake: never Substance use: never Substance use type: does not use Do You Feel Safe in your Home?: Yes Lack of Transportation: No Lack of Food: Never True Current Housing: Decline to Answer Concerned About Future Housing: Decline to Answer Difficulty Paying Gas/Electric Bills: Decline to Answer Difficulty Paying for Meds: Decline to Answer Currently Unemployed: Decline to Answer Education: Decline to Answer Difficulty w/ Childcare or Family Care: Decline to Answer Spiritual care concerns: No Meds Home Medications and Allergies Home Medications Medication Instructions Recorded Confirmed Type amitriptyline 75 mg tablet 75 mg PO . q.h.s. #30 tabs 11/03/23 10/03/24 Rx albuterol sulfate 90 mcg/actuation 2 puff inhalation Q4H PRN 05/19/24 10/03/24 Rx aerosol inhaler shortness of breath or wheezing #8.5 grams alprazolam 0.25 mg tablet 0.25 mg PO BID PRN anxiety #30 tabs 05/19/24 10/03/24 Rx lisinopril 5 mg tablet 5 mg PO DAILY #90 tabs 05/19/24 10/03/24 Rx pantoprazole 40 mg tablet,delayed 40 mg PO QAM #90 tabs 05/19/24 10/03/24 Rx release (Protonix) oxycodone-acetaminophen 10 mg-325 1 tablet PO Q4H PRN pain #180 tabs 08/27/24 10/03/24 Rx mg tablet (Percocet) famotidine 20 mg tablet 20 mg PO BID PRN heartburn #60 tabs 09/01/24 10/03/24 Rx gabapentin 100 mg capsule 100 mg PO QHS #90 caps 09/01/24 10/03/24 Rx linaclotide 145 mcg capsule 145 mcg PO DAILY@0630 90 days #90 09/24/24 10/03/24 Rx (Linzess) caps fluticasone propionate 50 1 spray intranasal BID PRN 10/03/24 10/03/24 History mcg/actuation nasal allergies spray,suspension (Flonase Allergy Relief) Allergies Allergy/AdvReac Type Severity Reaction Status Date / Time No Known Allergies Allergy Mild Verified 10/03/24 10:20 Vital Signs Vital Signs - 24 hr 10/02/24 20:54 10/03/24 02:53 10/03/24 06:57 Temperature 98.4 F Pulse Rate 110 H 101 H 99 Respiratory Rate 18 14 14 Blood Pressure 145/94 H 163/80 H 176/90 H Pulse Oximetry 98 100 98 Oxygen Delivery Room Air 10/03/24 08:12 10/03/24 09:53 Temperature 99.6 F Pulse Rate 98 101 H Respiratory Rate 20 16 Blood Pressure 145/84 H 142/96 H Pulse Oximetry 100 99 Oxygen Delivery Exam Narrative: AF 99.6 142/96 101 16 99% ra Gen - thin female in no acute respiratory distress who is nontoxic-appearing lying semi recumbent in bed HEENT - normocephalic. Atraumatic. Pupils equal round and reactive. Extraocular motions intact. Sclera clear and anicteric. Nares patent. Oropharynx was not visualized. Dry mucous membranes. Tongue was midline. Palate nataly symmetrically. No facial asymmetry. Neck - neck was supple. No dominant adenopathy, thyromegaly or masses. Chest - distant but clear breath sounds. No wheezes or crackles. Breast exam was deferred. CV - heart was regular rate and rhythm. S1-S2. No murmurs gallops or rubs. Abd - abdomen was diffusely tender worse in the lower midline associated with worsening pain. Positive bowel sounds. Ext - trace pedal edema. Neuro - patient is alert and appropriate. Strength is 5/5 in both upper and lower extremities. Cranial nerves 2-12 are intact. Speech is clear. Psych - normal mood and affect. Patient appears uncomfortable Skin - warm and dry. No rashes noted. H&P: Results Labs Labs: Short CBC 10/02/24 Range/Units 22:50 WBC 21.9 H (4.5-10.0) K/mm3 Hgb 13.4 D (12.0-15.0) g/dL Hct 39.3 (37.0-47.0) % Plt Count 678 H (150-375) k/mm3 BMP 10/02/24 22:50 Sodium 135 L Potassium 3.2 L Chloride 102 Carbon Dioxide 28 BUN 10 D Creatinine 0.60 L Glucose 121 H Calcium 8.5 Liver Function 10/02/24 Range/Units 22:50 Total Bilirubin 0.5 (0.2-1.3) mg/dL AST 26 (14-36) U/L ALT 16 (6-35) U/L Alkaline Phosphatase 224 H (38-126) U/L Albumin 3.4 L (3.5-5.1) g/dL Urine 10/03/24 Range/Units 02:20 Urine Color Yellow (Yellow) Urine Appearance Clear (Clear) Urine pH 6.0 (5.0-9.0) Ur Specific [place] 1.020 (1.001-1.035) Urine Protein 2+ H (Negative) mg/dL Urine Glucose (UA) Negative (Negative) mg/dL Assessment and Plan Assessment and plan (1) Constipation: Qualifiers: Constipation type: drug induced constipation Qualified Code(s): K59.03 - Drug induced constipation Code(s): K59.00 - Constipation, unspecified Status: Acute Assessment and Plan: Patient presents back to the ED with similar complaints. She has evidence of narcotic bowel syndrome. She has been on Miralax 2x/day without benefit. Review of the GI note says she can have Miralax 3-4x/day. The other recommended med was Naldemedine but we don't have that here. Will order the water soluble enema. Start Miralax TID. Bladder scan to exclude acute urine retention. She was advised to try to wean herself off narcotics (and how to do this was discussed) Wean off Elavil since this can contribute to her constipation. (2) Stercoral colitis: Code(s): K52.89 - Other specified noninfective gastroenteritis and colitis Status: Acute Assessment and Plan: CT scan results noted. WBC 22K. [place] related to stercoral ulcer. UA note consistent with UTI and no respiratory symptoms to suggest PNA. Zosyn started. Follow WBC. (3) Leukocytosis: Qualifiers: Leukocytosis type: unspecified Qualified Code(s): D72.829 - Elevated white blood cell count, unspecified Code(s): D72.829 - Elevated white blood cell count, unspecified Status: Acute Assessment and Plan: As above (4) Peripheral vascular disease of lower extremity: Onset Date: ~2007 Code(s): I73.9 - Peripheral vascular disease, unspecified Status: Acute Assessment and Plan: Patient with PAD with CT showing total occlusion of the juxtarenal aorta with reconstitution of flow in the common femoral arteries. Not on statin or ASA. Will discuss with patient about why she isn't on these medications. (5) Tobacco abuse: Code(s): Z72.0 - Tobacco use Status: Acute Assessment and Plan: Smoking cessation is encouraged given her hx. Plan DVT prophylaxis - SCDs Code status - full Hospitalist MIPS Advance Care Plan I have confirmed that the patient's Advanced Care Plan is present, code status is documented, or surrogate decision maker is listed in patient medical record.: Yes Medication Reconciliation I have utilized all available resources to obtain, update and review the patients current medications (includes all prescriptions, OTC, herbals, cannabis, and nutritional supplements).: Yes
[2024-10-03] MEDS: polyethylene glycoL 3350 17 GM POWD.PACK PO ×2 (16:38→20:45)
[2024-10-03] MEDS: oxyCODONE/ACETAMINOPHEN (*CRX) 10-325 MG TABLET 1 TAB PO (17:50)
[2024-10-03] MEDS: AMITRIPTYLINE HCL 25 MG TABLET 50 MG PO (20:45)
[2024-10-03] MEDS: GABAPENTIN 100 MG CAPSULE PO (20:45)
[2024-10-04] MEDS: PIPERACILLN/TAZ 3.375GM/NS50ML 3.375 GM/50 ML BAG IVPB ×5 (01:36→23:25)
[2024-10-04] MEDS: LACTATED RINGERS 1,000 ML 75 ML IV CONT ×2 (01:36→21:13)
[2024-10-04] MEDS: ACETAMINOPHEN 325 MG TABLET 650 MG PO ×2 (05:33→11:42)
[2024-10-04 06:00] VITALS: BP 154/84; PULSE 87; RESP 18; TEMP 37.1; O2SAT 98
[2024-10-04 06:27] LABS: Basophils Absolute Auto 0.1 K/mm3 (0.0-0.1); Basophils Percent Auto 0.3 % (0.2-1.2); Eosinophils Absolute Auto 0.7 K/mm3 (0-0.3); Eosinophils Percent Auto 2.6 % (0-4.4); Hematocrit 32.3 % (37.0-47.0); Hemoglobin 10.1 g/dL (12.0-15.0); Immature Granulocyte Absolute 0.16 K/mm3 (0.00-0.031); Immature Granulocyte Percent A 0.6 % (0-0.5); Lymphocytes Absolute Auto 1.21 K/mm3 (0.9-3.2); Lymphocytes Percent Auto 4.9 % (18.3-44.2); Mean Corpuscular HGB Conc 31.3 g/dl (32-36); Mean Corpuscular Hemoglobin 31.4 pg (26-34); Mean Corpuscular Volume 100.3 fl (80-100); Mean Platelet Volume 8.8 fl (7.4-10.4); Monocytes Absolute Auto 1.2 K/mm3 (0.1-0.6); Monocytes Percent Auto 4.8 % (2.6-8.5); Neutrophils Absolute Auto 21.6 K/mm3 (1.3-6.7); Neutrophils Percent Auto 86.8 % (45.5-73.1); Platelet Count Result 484 k/mm3 (150-375); Red Blood Count 3.22 M/mm3 (4.2-5.4); Red Cell Distribution Width 13.5 % (11.5-14.5); White Blood Count 24.9 K/mm3 (4.5-10.0)
[2024-10-04 06:42] LABS: Albumin Level 2.5 g/dL (3.5-5.1); Anion Gap 5 mmol/L (4-12); Blood Urea Nitrogen 10 mg/dL (7-17); Calcium 7.8 mg/dL (8.4-10.2); Carbon Dioxide 23 mmol/L (22-30); Chloride 108 mmol/L (98-107); Estimated CRCL calculation 57 ml/min; Estimated Glomerular Filt Rate > 60; Glucose 88 mg/dL (65-110); Magnesium 1.8 mg/dL (1.6-2.3); Phosphorus 2.5 mg/dL (2.5-4.5); Potassium 3.1 mmol/L (3.4-5.0); Sodium 136 mmol/L (137-145)
[2024-10-04] MEDS: PANTOPRAZOLE 40 MG TABLET PO (07:41)
[2024-10-04] MEDS: oxyCODONE/ACETAMINOPHEN (*CRX) 10-325 MG TABLET 1 TAB PO ×3 (07:41→21:25)
--- NOTE | 2024-10-04 08:22 | PC.NURSE ---
Pt. down to xray via stretcher.
[2024-10-04] MEDS: MAGNESIUM SULF 2 GM/WATER 50ML 2 GM/50 ML BAG IVPB (09:20)
[2024-10-04] MEDS: POTASSIUM CHLORIDE 20 MEQ PACKET (FOR LIQUID) 40 MEQ PO (09:20)
[2024-10-04] MEDS: POTASSIUM CHLORIDE 20 MEQ PACKET (FOR LIQUID) PO (09:20)
--- NOTE | 2024-10-04 10:47 | PM.IMPN ---
Progress Note: A&P Assessment and Plan (1) Constipation: Qualifiers: Constipation type: drug induced constipation Qualified Code(s): K59.03 - Drug induced constipation Code(s): K59.00 - Constipation, unspecified Status: Acute Assessment and Plan: Patient presents back to the ED with similar complaints of abdominal pain. She has evidence of narcotic bowel syndrome. She takes Miralax 2x/day without benefit at home. Review of the GI note recommended Miralax 3-4x/day and Naldemedine but we don't have that here. Water soluble enema ordered. Started Miralax TID. Bladder scan to exclude acute urine retention. She was advised to try to wean herself off narcotics (and how to do this was discussed); she takes percocet about 4x/day on average at home so will keep Percocet Q6hr prn for now Wean off Elavil since this can contribute to her constipation. Change Miralax to lactulose (2) Stercoral colitis: Code(s): K52.89 - Other specified noninfective gastroenteritis and colitis Status: Acute Assessment and Plan: As above (3) Leukocytosis: Qualifiers: Leukocytosis type: unspecified Qualified Code(s): D72.829 - Elevated white blood cell count, unspecified Code(s): D72.829 - Elevated white blood cell count, unspecified Status: Acute Assessment and Plan: CT scan results noted. WBC 22K. [place] related to stercoral ulcer. UA note consistent with UTI and no respiratory symptoms to suggest PNA. Dilated appendix but no evidence for acute appendicitis. Zosyn started. WBC higher today at 24K. CXR ordered showing increasing opacities with volume loss in RUL and mild left basilar opacities. No hx of TB Follow WBC. Check CT chest to assess for RUL PNA or mass. (4) Peripheral vascular disease of lower extremity: Onset Date: ~2007 Code(s): I73.9 - Peripheral vascular disease, unspecified Status: Acute Assessment and Plan: Patient with PAD with CT showing total occlusion of the juxtarenal aorta with reconstitution of flow in the common femoral arteries. Not on statin or ASA. She was on thee medications but was 'taken off' but no side effects. Add ASA and Lipitor. (5) Tobacco abuse: Code(s): Z72.0 - Tobacco use Status: Acute Assessment and Plan: Smoking cessation was encouraged Plan DVT prophylaxis - SCDs Code status - full Subjective Date/time seen: 10/04/24 10:47 Interval history: 74yo female with PAD, COPD, HTN and recently hospitalized with stercoral colitis here for abdominal pain. Patietn complaining of abd and back pain. She has trouble sitting up on commode due to back pain. No BM since being back from xray. Does not like the taste of Miralax. No hx of TB Exam Narrative: AF 98.7 154/84 87 18 98% ra Gen - thin female in NARD Chest - distant but clear breath sounds aneriorly and in flanks. CV - RRR S1/S2 Abd - diffusely tender with even minimal palpation, +BS Ext - no pedal edema. Psych - normal mood and affect. Patient appears uncomfortable Skin - warm and dry. Objective Data Vital Signs Vital Signs: Vital Signs - 24 hr 10/03/24 13:55 10/03/24 14:00 10/03/24 21:56 Temperature 99.6 F 98.3 F Pulse Rate 100 100 Respiratory Rate 16 18 Blood Pressure 154/75 H 136/67 Pulse Oximetry 94 96 99 Oxygen Delivery Room Air Fraction of Inspired Oxygen 21 10/03/24 23:16 10/04/24 06:00 10/04/24 08:00 Temperature 98.7 F Pulse Rate 87 Respiratory Rate 18 Blood Pressure 154/84 H Pulse Oximetry 98 Oxygen Delivery Room Air Room Air Fraction of Inspired Oxygen Intake/Output Intake/Output: Intake & Output 10/01/24 10/02/24 10/03/24 10/04/24 23:59 23:59 23:59 23:59 Intake Total 3800 200 Output Total 100 Balance 3700 200 Meds/Results Medications: Active Medications Generic Name Dose Route Start Last Admin Trade Name Freq PRN Reason Stop Dose Admin Acetaminophen 650 mg 10/03/24 14:52 10/04/24 05:33 Acetaminophen 325 Mg Tablet PO 650 mg Q6H PRN Administration Mild Pain (1-3) or Fever Albuterol 2 puff 10/03/24 14:50 Albuterol Sulfate (*Sp) Aerosol 1 Puff INHALATION Q4H PRN shortness of breath or wheezing Alprazolam 0.25 mg 10/03/24 14:50 Alprazolam (*Crx) 0.25 Mg Tablet PO BID PRN anxiety Amitriptyline HCl 50 mg 10/03/24 21:00 10/03/24 20:45 Amitriptyline Hcl 25 Mg Tablet PO 50 mg HS STEVIE Administration Famotidine 20 mg 10/03/24 14:50 Famotidine 20 Mg Tablet PO BID PRN heartburn Fluticasone Propionate 1 spray 10/03/24 14:50 Fluticasone Propionate 0.05% Na Spr 16 Gm Btl (*Bkc) NASAL BID PRN allergies Gabapentin 100 mg 10/03/24 21:00 10/03/24 20:45 Gabapentin 100 Mg Capsule PO 100 mg QHS STEVIE Administration Piperacillin/Tazobactam/Dextrose 3.375 gm in 50 mls @ 100 mls/hr 10/03/24 12:00 10/04/24 07:41 Zosyn 3.375 Gm/Ns 50 Ml IVPB Infused Q6H STEVIE Infusion Lactated Ringer's 1,000 mls @ 75 mls/hr 10/03/24 07:20 10/04/24 01:36 Lr - Lactated Ringers Iv IV CONT 75 mls/hr .[id number] STEVIE Administration Ondansetron HCl 4 mg 10/03/24 07:16 Ondansetron Inj 4 Mg/2 Ml Vial IV PUSH Q4H PRN Nausea Oxycodone/Acetaminophen 1 tab 10/03/24 14:50 10/04/24 07:41 Oxycodone/Acetaminophen (*Crx) 10-325 Mg Tablet PO 1 tab Q6H PRN Administration Pain Rated 6 or Greater Pantoprazole Sodium 40 mg 10/04/24 09:00 10/04/24 07:41 Pantoprazole 40 Mg Tablet PO 40 mg QAM STEVIE Administration Polyethylene Glycol 17 gm 10/03/24 14:50 10/04/24 07:40 Polyethylene Glycol 3350 17 Gm Powd.Pack PO Not Given Q8H [facility] Radiology Results: ITS Impressions Abdomen/Pelvis CT 10/03/24 07:31 IMPRESSION: 1. Stercoral colitis. 2. Dilatation of the appendix, stable from 09/21/24 and worsened from 04/15/22. This finding may be secondary to stool impaction. No fat stranding around the appendix to suggest appendicitis. 3. Small left pleural effusion. Chest X-Ray 10/04/24 09:08 IMPRESSION: 1. Increasing opacities with some associated volume loss in the right upper lung zone consistent with atelectasis and could not exclude superimposed pneumonia or malignancy. Recommend either further evaluation with chest CT or short interval follow-up chest radiograph to document resolution. 2. Mild left basilar opacities and favor atelectasis over pneumonia. 3. Emphysema. Labs Labs: Laboratory Results - last 24 hr 10/04/24 06:16 WBC 24.9 H RBC 3.22 L Hgb 10.1 L D Hct 32.3 L MCV 100.3 H D MCH 31.4 MCHC 31.3 L RDW 13.5 Plt Count 484 H MPV 8.8 Immature Gran % (Auto) 0.6 H Neut % (Auto) 86.8 H Lymph % (Auto) 4.9 L [place] % (Auto) 4.8 Eos % (Auto) 2.6 Baso % (Auto) 0.3 Lymph # (Auto) 1.21 [place] # (Auto) 1.2 H Eos # (Auto) 0.7 H Baso # (Auto) 0.1 Abs Immat Gran (auto) 0.16 H Absolute Neuts (auto) 21.6 H Absolute Nucleated RBC 0.000 Nucleated RBC % 0.0 Sodium 136 L Potassium 3.1 L Chloride 108 H Carbon Dioxide 23 Anion Gap 5 BUN 10 Creatinine 0.50 L Estim Creat Clear Calc 57 Estimated GFR > 60 Glucose 88 Calcium 7.8 L Phosphorus 2.5 Magnesium 1.8 Albumin 2.5 L
[2024-10-04 11:19] VITALS: BMI 17.1
[2024-10-04] MEDS: ATORVASTATIN 40 MG TABLET PO (11:43)
[2024-10-04] MEDS: ASPIRIN 81 MG CHEWABLE TABLET PO (11:43)
[2024-10-04] MEDS: FAMOTIDINE 20 MG TABLET PO (11:43)
[2024-10-04] MEDS: SIMETHICONE 125 MG CHEW TAB PO ×3 (12:28→21:13)
[2024-10-04] MEDS: LACTULOSE 20 GM/30 ML UDC PO ×2 (12:28→17:14)
[2024-10-04] MEDS: ONDANSETRON INJ 4 MG/2 ML VIAL IV PUSH ×2 (12:46→17:14)
--- NOTE | 2024-10-04 13:46 | PCPTNOTE ---
Attempted PT evaluation, pt refused stating she is not feeling well. Pt's daughter recommended returning tomorrow. Nursing aware.
[2024-10-04 14:00] VITALS: BP 170/83; PULSE 102; RESP 18; TEMP 36.8; O2SAT 100
[2024-10-04] MEDS: ACETAMINOPHEN/ASPIRIN/CAFFEINE 250-250-65 MG TABLET 1 TABLET PO (16:11)
[2024-10-04] MEDS: GABAPENTIN 100 MG CAPSULE PO (21:13)
[2024-10-04] MEDS: AMITRIPTYLINE HCL 25 MG TABLET 50 MG PO (21:13)
[2024-10-04 22:00] VITALS: BP 158/94; PULSE 95; RESP 18; TEMP 36.5; O2SAT 97
[2024-10-05] MEDS: ALPRAZolam (*CRX) 0.25 MG TABLET PO ×2 (04:21→20:45)
[2024-10-05] MEDS: PIPERACILLN/TAZ 3.375GM/NS50ML 3.375 GM/50 ML BAG IVPB ×3 (05:40→18:08)
[2024-10-05 06:00] VITALS: BP 153/91; PULSE 99; RESP 18; TEMP 37.1; O2SAT 98
[2024-10-05 07:28] LABS: Basophils Percent Auto 0.2 % (0.2-1.2); Eosinophils Absolute Auto 0.1 K/mm3 (0-0.3); Eosinophils Percent Auto 0.3 % (0-4.4); Hematocrit 31.9 % (37.0-47.0); Hemoglobin 10.3 g/dL (12.0-15.0); Immature Granulocyte Absolute 0.13 K/mm3 (0.00-0.031); Immature Granulocyte Percent A 0.7 % (0-0.5); Lymphocytes Absolute Auto 0.74 K/mm3 (0.9-3.2); Mean Corpuscular HGB Conc 32.3 g/dl (32-36); Mean Corpuscular Hemoglobin 30.9 pg (26-34); Mean Corpuscular Volume 95.8 fl (80-100); Mean Platelet Volume 8.7 fl (7.4-10.4); Monocytes Absolute Auto 0.9 K/mm3 (0.1-0.6); Neutrophils Absolute Auto 16.8 K/mm3 (1.3-6.7); Neutrophils Percent Auto 89.8 % (45.5-73.1); Platelet Count Result 550 k/mm3 (150-375); Red Blood Count 3.33 M/mm3 (4.2-5.4); Red Cell Distribution Width 13.2 % (11.5-14.5); White Blood Count 18.7 K/mm3 (4.5-10.0)
[2024-10-05 09:15] LABS: Anion Gap 5 mmol/L (4-12); Blood Urea Nitrogen 8 mg/dL (7-17); Calcium 7.7 mg/dL (8.4-10.2); Carbon Dioxide 30 mmol/L (22-30); Chloride 107 mmol/L (98-107); Estimated CRCL calculation 48 ml/min; Estimated Glomerular Filt Rate > 60; Glucose 85 mg/dL (65-110); Potassium 2.5 mmol/L (3.4-5.0); Sodium 142 mmol/L (137-145)
[2024-10-05] MEDS: ATORVASTATIN 40 MG TABLET PO (09:34)
[2024-10-05] MEDS: PANTOPRAZOLE 40 MG TABLET PO (09:34)
[2024-10-05] MEDS: ASPIRIN 81 MG CHEWABLE TABLET PO (09:34)
[2024-10-05] MEDS: SIMETHICONE 125 MG CHEW TAB PO ×4 (09:34→20:45)
[2024-10-05] MEDS: oxyCODONE/ACETAMINOPHEN (*CRX) 10-325 MG TABLET 1 TAB PO ×3 (09:39→20:45)
[2024-10-05] MEDS: LACTATED RINGERS 1,000 ML 75 ML IV CONT (09:39)
[2024-10-05] MEDS: FAMOTIDINE 20 MG TABLET PO (09:39)
[2024-10-05] MEDS: LACTULOSE 20 GM/30 ML UDC PO ×3 (09:41→17:17)
[2024-10-05] MEDS: levoFLOXacin 750 MG TABLET PO (12:38)
[2024-10-05] MEDS: POTASSIUM CHLORIDE INJ 40 MEQ in SODIUM CHLORIDE 0.9% IV 500 ML 130 MEQ IVPB ×2 (13:38→20:52)
[2024-10-05 14:00] VITALS: BP 147/86; PULSE 108; RESP 16; TEMP 36.6; O2SAT 97
[2024-10-05 18:28] LABS: MRSA (PCR) NOT DETECTED (NOT DETECTE)
--- NOTE | 2024-10-05 18:58 | PM.IMPN ---
Progress Note: A&P Assessment and Plan (1) Constipation: Qualifiers: Constipation type: drug induced constipation Qualified Code(s): K59.03 - Drug induced constipation Code(s): K59.00 - Constipation, unspecified Status: Acute Assessment and Plan: Patient presents back to the ED with similar complaints of abdominal pain. She has evidence of narcotic bowel syndrome. She takes Miralax 2x/day without benefit at home. Review of the GI note recommended Miralax 3-4x/day and Naldemedine but we don't have that here. Water soluble enema 10/04. Started Miralax TID but she didn't like the taste so changed to Lactulose. Bladder scan showed no urine retention. She was advised to try to wean herself off narcotics (and how to do this was discussed); she takes percocet about 4x/day on average at home so will keep Percocet Q6hr prn for now Wean off Elavil since this can contribute to her constipation. Multiple BMs since water soluble enema. Continue Lactulose. (2) Stercoral colitis: Code(s): K52.89 - Other specified noninfective gastroenteritis and colitis Status: Acute Assessment and Plan: As above (3) Cavitary lesion of lung: Code(s): J98.4 - Other disorders of lung Status: Acute Assessment and Plan: Due to the leukocytosis, CXR ordered which showed increasing opacities with volume loss in RUL and mild left basilar opacities. No hx of TB. CT chest showing 3.4cm right apical cavitary lesion and moderate emphysema. CT chest in 2008 showing stable right apical scarring but no other CT imaging since. It wsa seen by CXR in December 2018 but looks worse now. Spoke with pulmonary and imaging was reviewed. He felt this could be more likely infection or malignancy. He recommended treatment. Continue Zosyn and plan to change to Augmentin at discharge for a total of 3 weeks of Zosyn/Augmentin treatment. He also recommended renally dosed levaquin for 10 days which was started. Sputum cx, sputum for TB and Gold test ordered. MRSA nasal swab negative. Plan to have patient follow up with Pulmonary after discharge. Will need repeat CT scan in 6 weeks. (4) Leukocytosis: Qualifiers: Leukocytosis type: unspecified Qualified Code(s): D72.829 - Elevated white blood cell count, unspecified Code(s): D72.829 - Elevated white blood cell count, unspecified Status: Acute Assessment and Plan: CT scan results noted. WBC 22K. [place] related to stercoral ulcer. UA not consistent with UTI and no respiratory symptoms to suggest PNA. Dilated appendix but no evidence for acute appendicitis. Zosyn started. WBC was higher to 24K but now trending down. Follow WBC. 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 This is relatively new and noted last admission. She has not followed up with her doctors about this. She is not on statin or ASA. She ws on them before but stopped; no side effects and is agreeable to resume them. ASA and Lipitor added. Smoking cessation encouraged (6) Tobacco abuse: Code(s): Z72.0 - Tobacco use Status: Acute Assessment and Plan: Smoking cessation was encouraged (7) Hypokalemia: Code(s): E87.6 - Hypokalemia Status: Acute Assessment and Plan: Potassium low this morning to 2.5 so replacement ordered. mag 2.0. TSH normal 2 weeks ago. Related to stool output. Continue to follow and replace. Plan DVT prophylaxis - SCDs Code status - full Subjective Date/time seen: 10/05/24 18:58 Interval history: 74yo female with PAD, COPD, HTN and recently hospitalized with stercoral colitis here for abdominal pain. Patietn complaining of nausea. Had quite a few liquid BMs since contrast enema. Still with considerable abd pain without change. No dysuria or hematuria. No CP or SOB. Exam Narrative: AF 97.9 147/86 108 16 97% ra Gen - thin female in NARD Chest - CTA bilaterally CV - RRR S1/S2 Abd - soft, diffusely tender with guarding but better Ext - no pedal edema. Psych - Patient appears uncomfortable Skin - warm and dry. Objective Data Vital Signs Vital Signs: Vital Signs - 24 hr 10/04/24 20:00 10/04/24 22:00 10/05/24 06:00 Temperature 97.7 F 98.7 F Pulse Rate 95 99 Respiratory Rate 18 18 Blood Pressure 158/94 H 153/91 H Pulse Oximetry 97 98 Oxygen Delivery Room Air 10/05/24 10:15 10/05/24 14:00 Temperature 97.9 F Pulse Rate 108 H Respiratory Rate 16 Blood Pressure 147/86 H Pulse Oximetry 97 Oxygen Delivery Room Air Intake/Output Intake/Output: Intake & Output 10/02/24 10/03/24 10/04/24 10/05/24 23:59 23:59 23:59 23:59 Intake Total 3800 1400 2822.5 Output Total 100 350 Balance 3700 1050 2822.5 Meds/Results Medications: Active Medications Generic Name Dose Route Start Last Admin Trade Name Freq PRN Reason Stop Dose Admin Acetaminophen 650 mg 10/03/24 14:52 10/04/24 11:42 Acetaminophen 325 Mg Tablet PO 650 mg Q6H PRN Administration Mild Pain (1-3) or Fever Albuterol 2 puff 10/03/24 14:50 Albuterol Sulfate (*Sp) Aerosol 1 Puff INHALATION Q4H PRN shortness of breath or wheezing Alprazolam 0.25 mg 10/03/24 14:50 10/05/24 04:21 Alprazolam (*Crx) 0.25 Mg Tablet PO 0.25 mg BID PRN Administration anxiety Amitriptyline HCl 50 mg 10/03/24 21:00 10/04/24 21:13 Amitriptyline Hcl 25 Mg Tablet PO 50 mg HS STEVIE Administration Aspirin 81 mg 10/04/24 11:30 10/05/24 09:34 Aspirin 81 Mg Chewable Tablet PO 81 mg DAILY@0800 STEVIE Administration Atorvastatin Calcium 40 mg 10/04/24 11:30 10/05/24 09:34 Atorvastatin 40 Mg Tablet PO 40 mg DAILY STEVIE Administration Famotidine 20 mg 10/03/24 14:50 10/05/24 09:39 Famotidine 20 Mg Tablet PO 20 mg BID PRN Administration heartburn Fluticasone Propionate 1 spray 10/03/24 14:50 Fluticasone Propionate 0.05% Na Spr 16 Gm Btl (*Bkc) NASAL BID PRN allergies Gabapentin 100 mg 10/03/24 21:00 10/04/24 21:13 Gabapentin 100 Mg Capsule PO 100 mg QHS STEVIE Administration Piperacillin/Tazobactam/Dextrose 3.375 gm in 50 mls @ 100 mls/hr 10/03/24 12:00 10/05/24 18:08 Zosyn 3.375 Gm/Ns 50 Ml IVPB 100 mls/hr Q6H STEVIE Administration Lactated Ringer's 1,000 mls @ 75 mls/hr 10/03/24 07:20 10/05/24 09:39 Lr - Lactated Ringers Iv IV CONT 75 mls/hr .[id number] STEVIE Administration Lactulose 20 gm 10/04/24 13:00 10/05/24 17:17 Lactulose 20 Gm/30 Ml Udc PO 20 gm TID [facility] Administration Levofloxacin 750 mg 10/05/24 13:00 10/05/24 12:38 Levofloxacin 750 Mg Tablet PO 10/13/24 13:01 750 mg Q48H STEVIE Administration Oxycodone/Acetaminophen 1 tab 10/03/24 14:50 10/05/24 15:36 Oxycodone/Acetaminophen (*Crx) 10-325 Mg Tablet PO 1 tab Q6H PRN Administration Pain Rated 6 or Greater Pantoprazole Sodium 40 mg 10/04/24 09:00 10/05/24 09:34 Pantoprazole 40 Mg Tablet PO 40 mg QAM [facility] Administration Simethicone 125 mg 10/04/24 13:00 10/05/24 17:17 Simethicone 125 Mg Chew Tab PO 125 mg QID [facility] Administration Sodium Chloride 6 ml 10/05/24 05:00 Sodium Chlor 3% 15 Ml Neb (Respiratory Therapy) INHALATION 10/07/24 05:01 DAILY@0500 [facility] Radiology Results: ITS Impressions Abdomen/Pelvis CT 10/03/24 07:31 IMPRESSION: 1. Stercoral colitis. 2. Dilatation of the appendix, stable from 09/21/24 and worsened from 04/15/22. This finding may be secondary to stool impaction. No fat stranding around the appendix to suggest appendicitis. 3. Small left pleural effusion. Chest X-Ray 10/04/24 09:08 IMPRESSION: 1. Increasing opacities with some associated volume loss in the right upper lung zone consistent with atelectasis and could not exclude superimposed pneumonia or malignancy. Recommend either further evaluation with chest CT or short interval follow-up chest radiograph to document resolution. 2. Mild left basilar opacities and favor atelectasis over pneumonia. 3. Emphysema. Enema w/Water Soluble 10/04/24 10:10 IMPRESSION: 1. Large amount of stool scattered throughout the colon. No fixed stricture or mucosal irregularity to suggest malignancy. Chest CT 10/04/24 15:05 IMPRESSION: 3.4 cm right apical cavitary lesion with irregular wall thickening. Differential includes infection, malignancy, noninfectious granuloma, and pulmonary infarct with. Moderate emphysema. Small left and trace right pleural effusions. Labs Labs: Laboratory Results - last 24 hr 10/05/24 10/05/24 06:58 17:10 WBC 18.7 H RBC 3.33 L Hgb 10.3 L Hct 31.9 L MCV 95.8 MCH 30.9 MCHC 32.3 RDW 13.2 Plt Count 550 H MPV 8.7 Immature Gran % (Auto) 0.7 H Neut % (Auto) 89.8 H Lymph % (Auto) 4.0 L [place] % (Auto) 5.0 Eos % (Auto) 0.3 Baso % (Auto) 0.2 Lymph # (Auto) 0.74 L [place] # (Auto) 0.9 H Eos # (Auto) 0.1 Baso # (Auto) 0.0 Abs Immat Gran (auto) 0.13 H Absolute Neuts (auto) 16.8 H Absolute Nucleated RBC 0.000 Nucleated RBC % 0.0 Sodium 142 Potassium 2.5 L* Chloride 107 Carbon Dioxide 30 Anion Gap 5 BUN 8 Creatinine 0.60 L Estim Creat Clear Calc 48 Estimated GFR > 60 Glucose 85 Calcium 7.7 L Magnesium 2.0 Nasal MRSA (PCR) Not detected
[2024-10-05 19:09] LABS: Potassium 2.8 mmol/L (3.4-5.0)
[2024-10-05] MEDS: AMITRIPTYLINE HCL 25 MG TABLET 50 MG PO (20:45)
[2024-10-05] MEDS: GABAPENTIN 100 MG CAPSULE PO (20:45)
[2024-10-05 21:35] VITALS: BP 164/89; PULSE 97; RESP 20; TEMP 36.8; O2SAT 99
[2024-10-06] MEDS: PIPERACILLN/TAZ 3.375GM/NS50ML 3.375 GM/50 ML BAG IVPB ×5 (02:18→23:05)
--- NOTE | 2024-10-06 02:57 | PC.NURSE ---
Pt has had multiple large volume liquid stools this shift. Pt continues to be incontinent of stool. Pt continues to c/o severe gas pains and back pain, even after pain medication has been given.
[2024-10-06] MEDS: SODIUM CHLOR 3% 15 ML NEB (RESPIRATORY THERAPY) 6 ML INHALATION (05:38)
[2024-10-06 06:00] VITALS: BP 157/94; PULSE 110; RESP 18; TEMP 37.3; O2SAT 97
[2024-10-06] MEDS: oxyCODONE/ACETAMINOPHEN (*CRX) 10-325 MG TABLET 1 TAB PO ×4 (06:13→23:04)
[2024-10-06 06:56] LABS: Basophils Percent Auto 0.2 % (0.2-1.2); Hematocrit 31.8 % (37.0-47.0); Hemoglobin 10.3 g/dL (12.0-15.0); Immature Granulocyte Absolute 0.14 K/mm3 (0.00-0.031); Immature Granulocyte Percent A 0.9 % (0-0.5); Lymphocytes Absolute Auto 1.07 K/mm3 (0.9-3.2); Lymphocytes Percent Auto 6.6 % (18.3-44.2); Mean Corpuscular HGB Conc 32.4 g/dl (32-36); Mean Corpuscular Volume 95.8 fl (80-100); Mean Platelet Volume 8.7 fl (7.4-10.4); Monocytes Absolute Auto 1.3 K/mm3 (0.1-0.6); Monocytes Percent Auto 7.8 % (2.6-8.5); Neutrophils Absolute Auto 13.7 K/mm3 (1.3-6.7); Neutrophils Percent Auto 84.5 % (45.5-73.1); Platelet Count Result 546 k/mm3 (150-375); Red Blood Count 3.32 M/mm3 (4.2-5.4); Red Cell Distribution Width 13.2 % (11.5-14.5); White Blood Count 16.2 K/mm3 (4.5-10.0)
[2024-10-06 07:05] LABS: Albumin Level 2.7 g/dL (3.5-5.1); Anion Gap 7 mmol/L (4-12); Blood Urea Nitrogen 4 mg/dL (7-17); Calcium 7.7 mg/dL (8.4-10.2); Carbon Dioxide 28 mmol/L (22-30); Chloride 104 mmol/L (98-107); Estimated CRCL calculation 57 ml/min; Estimated Glomerular Filt Rate > 60; Glucose 78 mg/dL (65-110); Magnesium 1.8 mg/dL (1.6-2.3); Phosphorus 2.1 mg/dL (2.5-4.5); Potassium 3.1 mmol/L (3.4-5.0); Sodium 139 mmol/L (137-145)
[2024-10-06 08:00] VITALS: PULSE 110; RESP 18; O2SAT 97
[2024-10-06] MEDS: ASPIRIN 81 MG CHEWABLE TABLET PO (08:18)
[2024-10-06] MEDS: SIMETHICONE 125 MG CHEW TAB PO ×4 (08:18→20:21)
[2024-10-06] MEDS: ATORVASTATIN 40 MG TABLET PO (08:18)
[2024-10-06] MEDS: PANTOPRAZOLE 40 MG TABLET PO (08:18)
[2024-10-06] MEDS: LACTULOSE 20 GM/30 ML UDC PO ×3 (08:22→17:08)
[2024-10-06] MEDS: POTASSIUM/PHOSPHORUS/SODIUM 1.5 GM PACKET 1 PACKET PO (11:27)
[2024-10-06] MEDS: POTASSIUM CHLORIDE 20 MEQ ER TABLET 40 MEQ PO (11:28)
[2024-10-06] MEDS: ONDANSETRON INJ 4 MG/2 ML VIAL IV PUSH (11:28)
[2024-10-06] MEDS: LACTATED RINGERS 1,000 ML 75 ML IV CONT (11:29)
--- NOTE | 2024-10-06 12:14 | P.PNIM_ITS ---
Progress Note: A&P Assessment and Plan (1) Constipation: Qualifiers: Constipation type: drug induced constipation Qualified Code(s): K59.03 - Drug induced constipation Code(s): K59.00 - Constipation, unspecified Status: Acute Assessment and Plan: * Continue Lactulose BID * Water soluble enema 10/04/24 with multiple BMs * Minimize narcotic use * Continue Nausea control with Zofran, however this can contribute to worsening constipation. Use with caution * Continue to wean Elavil * Abdomen firm, distended, tender will go ahead and repeat is CT scan of her abdomen and pelvis (2) Stercoral colitis: Code(s): K52.89 - Other specified noninfective gastroenteritis and colitis Status: Acute Assessment and Plan: see above (3) Cavitary lesion of lung: Code(s): J98.4 - Other disorders of lung Status: Acute Assessment and Plan: * Chest x-ray showing increased opacities with volume loss in right upper lobe and mild left basilar opacities. * CT of the chest shows 3.4 cm right apical cavitary lesion and moderate emphysema * Pulmonology consulted and thinks this is likely infection versus malignancy and recommends longer duration antibiotics with Zosyn/Augmentin and Levaquin * TB and gold test pending * MRSA negative * Will need to follow up with pulmonology after discharge * Will also need to repeat CT scan in 6 weeks (4) Leukocytosis: Qualifiers: Leukocytosis type: unspecified Qualified Code(s): D72.829 - Elevated white blood cell count, unspecified Code(s): D72.829 - Elevated white blood cell count, unspecified Status: Acute Assessment and Plan: * White blood cell count down to 16.2 * Continue Zosyn for now 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, dilation of the appendix likely secondary to stool impaction no fat stranding around the appendix to suggest appendicitis * Repeating CT of the abdomen and pelvis with contrast (5) Peripheral vascular disease of lower extremity: Onset Date: ~2007 Code(s): I73.9 - Peripheral vascular disease, unspecified Status: Acute Assessment and Plan: * Continue aspirin and Lipitor (6) Tobacco abuse: Code(s): Z72.0 - Tobacco use Status: Acute Assessment and Plan: * Smoking cessation information given (7) Hypokalemia: Code(s): E87.6 - Hypokalemia Status: Acute Assessment and Plan: * Potassium 3.1 * given 40 mEq of potassium Time Spent With Patient Time with patient: Greater than 35 minutes Subjective Date/time seen: 10/06/24 12:14 Interval history: Review of Systems Review of Systems: All systems reviewed & are unremarkable except as noted in HPI and below Constitutional: Constitutional: Reports as per HPI and Reports no additional constitutional complaints Eyes: Eyes: Reports as per HPI and Reports no additional eye complaints ENT: Reports system reviewed and no additional complaints, except as documented and Reports as per HPI Cardiovascular: Cardiovascular: Reports as per HPI and Reports no additional cardiovascular complaints Respiratory: Respiratory: Reports as per HPI and Reports no additional respiratory complaints Gastrointestinal: Gastrointestinal: Reports as per HPI and Reports no additional gastrointestinal complaints Genitourinary: Genitourinary: Reports no additional female genitourinary complaints and Reports as per HPI Musculoskeletal: Musculoskeletal: Reports no additional musculoskeletal complaints and Reports as per HPI Integumentary/Breasts: Skin/Breast: Reports system reviewed and no additional complaints, except as docu and Reports as per HPI Neurologic: Reports system reviewed and no additional complaints, except as documented and Reports as per HPI Psychiatric: Psychiatric: Reports no additional psychiatric complaints and Reports as per HPI Exam Narrative: General: In no acute distress, well nourished Head: atraumatic, no encephalopathy Eyes: PERRLA, sclera clear ENT: moist mucous membranes, nasal passages clear Neck: supple, no JVD, no adenopathy, trachea midline Cardiac: Normal S1 and S2. No murmur, gallops or friction rubs, peripheral pulses intact. Respiratory: Lungs clear to auscultation, no adventitious lung sounds, currently on room air Gastrointestinal: distended, firm, tender, normoactive bowel sounds. Has reported BM's and is passing gas. Pain 10/10 in abdomen. : voiding without difficulty. Extremities: moves all extremities well, no edema Skin: clean, dry, intact. No wounds or lesions. Neuro: Alert and oriented x4, cranial nerves intact, no neuro deficits. Psych: normal mood, normal affect, interactive Objective Data Vital Signs Vital Signs: Vital Signs - 24 hr 10/05/24 14:00 10/05/24 20:00 10/05/24 21:35 Temperature 97.9 F 98.2 F Pulse Rate 108 H 97 Respiratory Rate 16 20 Blood Pressure 147/86 H 164/89 H Pulse Oximetry 97 99 Oxygen Delivery Room Air Fraction of Inspired Oxygen 10/06/24 06:00 10/06/24 08:00 Temperature 99.2 F Pulse Rate 110 H 110 H Respiratory Rate 18 18 Blood Pressure 157/94 H Pulse Oximetry 97 97 Oxygen Delivery Room Air Fraction of Inspired Oxygen 21 Intake/Output Intake/Output: Intake & Output 10/03/24 10/04/24 10/05/24 10/06/24 23:59 23:59 23:59 23:59 Intake Total 3800 1400 3872.5 100 Output Total 100 350 Balance 3700 1050 3872.5 100 Meds/Results Medications: Active Medications Generic Name Dose Route Start Last Admin Trade Name Freq PRN Reason Stop Dose Admin Acetaminophen 650 mg 10/03/24 14:52 10/04/24 11:42 Acetaminophen 325 Mg Tablet PO 650 mg Q6H PRN Administration Mild Pain (1-3) or Fever Albuterol 2 puff 10/03/24 14:50 Albuterol Sulfate (*Sp) Aerosol 1 Puff INHALATION Q4H PRN shortness of breath or wheezing Alprazolam 0.25 mg 10/03/24 14:50 10/05/24 20:45 Alprazolam (*Crx) 0.25 Mg Tablet PO 0.25 mg BID PRN Administration anxiety Amitriptyline HCl 50 mg 10/03/24 21:00 10/05/24 20:45 Amitriptyline Hcl 25 Mg Tablet PO 50 mg HS STEVIE Administration Aspirin 81 mg 10/04/24 11:30 10/06/24 08:18 Aspirin 81 Mg Chewable Tablet PO 81 mg DAILY@0800 STEVIE Administration Atorvastatin Calcium 40 mg 10/04/24 11:30 10/06/24 08:18 Atorvastatin 40 Mg Tablet PO 40 mg DAILY STEVIE Administration Famotidine 20 mg 10/03/24 14:50 10/05/24 09:39 Famotidine 20 Mg Tablet PO 20 mg BID PRN Administration heartburn Fluticasone Propionate 1 spray 10/03/24 14:50 Fluticasone Propionate 0.05% Na Spr 16 Gm Btl (*Bkc) NASAL BID PRN allergies Gabapentin 100 mg 10/03/24 21:00 10/05/24 20:45 Gabapentin 100 Mg Capsule PO 100 mg QHS STEVIE Administration Piperacillin/Tazobactam/Dextrose 3.375 gm in 50 mls @ 100 mls/hr 10/03/24 12:00 10/06/24 11:33 Zosyn 3.375 Gm/Ns 50 Ml IVPB 100 mls/hr Q6H STEVIE Administration Lactated Ringer's 1,000 mls @ 75 mls/hr 10/03/24 07:20 10/06/24 11:29 Lr - Lactated Ringers Iv IV CONT 75 mls/hr .[id number] STEVIE Administration Lactulose 20 gm 10/04/24 13:00 10/06/24 08:22 Lactulose 20 Gm/30 Ml Udc PO 20 gm TID STEVIE Administration Levofloxacin 750 mg 10/05/24 13:00 10/05/24 12:38 Levofloxacin 750 Mg Tablet PO 10/13/24 13:01 750 mg Q48H STEVIE Administration Ondansetron HCl 4 mg 10/06/24 10:51 10/06/24 11:28 Ondansetron Inj 4 Mg/2 Ml Vial IV PUSH 4 mg Q4H PRN Administration Nausea And Vomiting Oxycodone/Acetaminophen 1 tab 10/03/24 14:50 10/06/24 11:45 Oxycodone/Acetaminophen (*Crx) 10-325 Mg Tablet PO 1 tab Q6H PRN Administration Pain Rated 6 or Greater Pantoprazole Sodium 40 mg 10/04/24 09:00 10/06/24 08:18 Pantoprazole 40 Mg Tablet PO 40 mg QAM STEVIE Administration Simethicone 125 mg 10/04/24 13:00 10/06/24 08:18 Simethicone 125 Mg Chew Tab PO 125 mg QID [facility] Administration Sodium Chloride 6 ml 10/05/24 05:00 10/06/24 05:38 Sodium Chlor 3% 15 Ml Neb (Respiratory Therapy) INHALATION 10/07/24 05:01 6 ml DAILY@0500 STEVIE Administration Radiology Results: ITS Impressions Abdomen/Pelvis CT 10/03/24 07:31 IMPRESSION: 1. Stercoral colitis. 2. Dilatation of the appendix, stable from 09/21/24 and worsened from 04/15/22. This finding may be secondary to stool impaction. No fat stranding around the appendix to suggest appendicitis. 3. Small left pleural effusion. Chest X-Ray 10/04/24 09:08 IMPRESSION: 1. Increasing opacities with some associated volume loss in the right upper lung zone consistent with atelectasis and could not exclude superimposed pneumonia or malignancy. Recommend either further evaluation with chest CT or short interval follow-up chest radiograph to document resolution. 2. Mild left basilar opacities and favor atelectasis over pneumonia. 3. Emphysema. Enema w/Water Soluble 10/04/24 10:10 IMPRESSION: 1. Large amount of stool scattered throughout the colon. No fixed stricture or m ucosal irregularity to suggest malignancy. Chest CT 10/04/24 15:05 IMPRESSION: 3.4 cm right apical cavitary lesion with irregular wall thickening. Differential includes infection, malignancy, noninfectious granuloma, and pulmonary infarct with. Moderate emphysema. Small left and trace right pleural effusions. Labs Labs: Laboratory Results - last 24 hr 10/05/24 10/05/24 10/06/24 17:10 18:43 06:41 WBC 16.2 H RBC 3.32 L Hgb 10.3 L Hct 31.8 L MCV 95.8 MCH 31.0 MCHC 32.4 RDW 13.2 Plt Count 546 H MPV 8.7 Immature Gran % (Auto) 0.9 H Neut % (Auto) 84.5 H Lymph % (Auto) 6.6 L [place] % (Auto) 7.8 Eos % (Auto) 0.0 Baso % (Auto) 0.2 Lymph # (Auto) 1.07 [place] # (Auto) 1.3 H Eos # (Auto) 0.0 Baso # (Auto) 0.0 Abs Immat Gran (auto) 0.14 H Absolute Neuts (auto) 13.7 H Absolute Nucleated RBC 0.000 Nucleated RBC % 0.0 Sodium 139 Potassium 2.8 L* 3.1 L Chloride 104 Carbon Dioxide 28 Anion Gap 7 BUN 4 L Creatinine 0.50 L Estim Creat Clear Calc 57 Estimated GFR > 60 Glucose 78 Calcium 7.7 L Phosphorus 2.1 L Magnesium 1.8 Albumin 2.7 L Nasal MRSA (PCR) Not detected Quality VTE Prophylaxis VTE prophylaxis: mechanical ordered
[2024-10-06 13:59] VITALS: BP 149/83; PULSE 103; RESP 18; TEMP 36.6; O2SAT 98
[2024-10-06] MEDS: ALPRAZolam (*CRX) 0.25 MG TABLET PO (15:30)
[2024-10-06] MEDS: GABAPENTIN 100 MG CAPSULE PO (20:24)
[2024-10-06] MEDS: AMITRIPTYLINE HCL 25 MG TABLET 50 MG PO (20:24)
[2024-10-06 21:28] VITALS: BP 178/96; PULSE 99; RESP 18; TEMP 36.4; O2SAT 98
[2024-10-07] MEDS: LACTATED RINGERS 1,000 ML 75 ML IV CONT ×2 (02:53→16:01)
[2024-10-07] MEDS: oxyCODONE/ACETAMINOPHEN (*CRX) 10-325 MG TABLET 1 TAB PO ×3 (05:23→17:15)
[2024-10-07] MEDS: PIPERACILLN/TAZ 3.375GM/NS50ML 3.375 GM/50 ML BAG IVPB ×3 (05:24→16:02)
[2024-10-07] MEDS: hydrALAZINE HCL 20 MG/ML VIAL 10 MG IV PUSH (05:24)
[2024-10-07 05:30] VITALS: BP 191/90; PULSE 109; RESP 18; TEMP 37.3; O2SAT 99
[2024-10-07 07:02] VITALS: BP 120/80
[2024-10-07 08:00] VITALS: PULSE 76; RESP 20; O2SAT 97
[2024-10-07] MEDS: ONDANSETRON INJ 4 MG/2 ML VIAL IV PUSH ×2 (08:12→20:17)
[2024-10-07] MEDS: PANTOPRAZOLE 40 MG TABLET PO (08:13)
[2024-10-07] MEDS: ASPIRIN 81 MG CHEWABLE TABLET PO (08:13)
[2024-10-07] MEDS: SIMETHICONE 125 MG CHEW TAB PO ×2 (08:13→11:26)
[2024-10-07] MEDS: ATORVASTATIN 40 MG TABLET PO (08:13)
[2024-10-07] MEDS: LACTULOSE 20 GM/30 ML UDC PO ×3 (08:14→15:59)
[2024-10-07] MEDS: ALPRAZolam (*CRX) 0.25 MG TABLET PO ×2 (08:17→20:12)
--- NOTE | 2024-10-07 10:46 | PCNFU ---
Nutrition Follow-Up Complete: Suboptimal po intake related to appetite and altered GI function as evidenced by pt report Goal:PO intake improved to greater than 50% of meals and supplements Pt not meeting goal, continue with same goal. Pt current nutrition is Full liquids, Ensure Enlive TID. Nutrition recommendation: continue to encourage po intake Last recorded weight is 43.9 kg. Bowel Motility: +BM 10/07 Labs Reviewed: Hgb:10.3, HCT:31.8, Alb:2.7, K:3.1, BUN:4, Cr:0.5 Meds Noted: Skin: WNL Additional Notes: pt continues on full liquids, reports she is unable to take much in due to GI distress still. Sips of Ensure taken. Encourage po intake. Monitor intake, wt, labs. Follow up in 3 days.
[2024-10-07] MEDS: levoFLOXacin 750 MG TABLET PO (11:25)
[2024-10-07 13:15] LABS: Alanine Aminotransferase 20 U/L (6-35); Albumin Level 2.6 g/dL (3.5-5.1); Alkaline Phosphatase 166 U/L (38-126); Anion Gap 2 mmol/L (4-12); Aspartate Amino Transferase 39 U/L (14-36); Bilirubin,Total 0.5 mg/dL (0.2-1.3); Blood Urea Nitrogen 6 mg/dL (7-17); Calcium 7.8 mg/dL (8.4-10.2); Carbon Dioxide 33 mmol/L (22-30); Chloride 100 mmol/L (98-107); Estimated CRCL calculation 57 ml/min; Estimated Glomerular Filt Rate > 60; Glucose 89 mg/dL (65-110); Potassium 3.7 mmol/L (3.4-5.0); Sodium 135 mmol/L (137-145)
[2024-10-07 13:20] LABS: Basophils Percent Auto 0.2 % (0.2-1.2); Hematocrit 34.2 % (37.0-47.0); Hemoglobin 10.8 g/dL (12.0-15.0); Immature Granulocyte Absolute 0.12 K/mm3 (0.00-0.031); Immature Granulocyte Percent A 0.9 % (0-0.5); Lymphocytes Absolute Auto 1.36 K/mm3 (0.9-3.2); Lymphocytes Percent Auto 10.7 % (18.3-44.2); Mean Corpuscular HGB Conc 31.6 g/dl (32-36); Mean Corpuscular Hemoglobin 30.3 pg (26-34); Mean Corpuscular Volume 95.8 fl (80-100); Mean Platelet Volume 8.7 fl (7.4-10.4); Monocytes Absolute Auto 1.2 K/mm3 (0.1-0.6); Monocytes Percent Auto 9.6 % (2.6-8.5); Neutrophils Percent Auto 78.6 % (45.5-73.1); Platelet Count Result 581 k/mm3 (150-375); Red Blood Count 3.57 M/mm3 (4.2-5.4); Red Cell Distribution Width 13.1 % (11.5-14.5); White Blood Count 12.8 K/mm3 (4.5-10.0)
[2024-10-07 14:00] VITALS: BP 130/70; PULSE 76; RESP 20; TEMP 36.3; O2SAT 97
--- NOTE | 2024-10-07 15:40 | PM.IMPN ---
Progress Note: A&P Assessment and Plan (1) Constipation: Qualifiers: Constipation type: drug induced constipation Qualified Code(s): K59.03 - Drug induced constipation Code(s): K59.00 - Constipation, unspecified Status: Acute Assessment and Plan: Continue Lactulose BID Water soluble enema 10/04/24 with multiple BMs Minimize narcotic use Continue Nausea control with Zofran, however this can contribute to worsening constipation. Use with caution Continue to wean Elavil Abdomen firm, distended, tender CT scan of abdomen pelvis show extensive prominent distension of most of the large bowel with an area of apparent luminal narrowing an abrupt caliber change at the distal sigmoid colon, appearance is similar to prior exam, no definite mass lesion seen. Encouraged patient to ambulate in the halls as well as be up out of the bed for minimum of 2 hours with each meal even if she does not eat. She was told that she needs to work with therapy on all of these goals. She has not been up today. Will give out 1 time dose of methylnaltrexone If no improvement, will given Lactulose enema (2) Stercoral colitis: Code(s): K52.89 - Other specified noninfective gastroenteritis and colitis Status: Acute Assessment and Plan: see above (3) Cavitary lesion of lung: Code(s): J98.4 - Other disorders of lung Status: Acute Assessment and Plan: Chest x-ray showing increased opacities with volume loss in right upper lobe and mild left basilar opacities. CT of the chest shows 3.4 cm right apical cavitary lesion and moderate emphysema Pulmonology consulted and thinks this is likely infection versus malignancy and recommends longer duration antibiotics with Zosyn/Augmentin and Levaquin TB and gold test pending MRSA negative Will need to follow up with pulmonology after discharge Will also need to repeat CT scan in 6 weeks (4) Leukocytosis: Qualifiers: Leukocytosis type: unspecified Qualified Code(s): D72.829 - Elevated white blood cell count, unspecified Code(s): D72.829 - Elevated white blood cell count, unspecified Status: Acute Assessment and Plan: White blood cell count down to 12.8 Continue Zosyn for now, will change to Augmentin when she is able to hold down p.o. Last CT showed sterile coral colitis, dilation of the appendix likely secondary to stool impaction no fat stranding around the appendix to suggest appendicitis CT scan of abdomen pelvis show extensive prominent distension of most of the large bowel with an area of apparent luminal narrowing an abrupt caliber change at the distal sigmoid colon, appearance is similar to prior exam, no definite mass lesion seen (5) Peripheral vascular disease of lower extremity: Onset Date: ~2007 Code(s): I73.9 - Peripheral vascular disease, unspecified Status: Acute Assessment and Plan: Continue aspirin and Lipitor (6) Tobacco abuse: Code(s): Z72.0 - Tobacco use Status: Acute Assessment and Plan: Smoking cessation information given (7) Hypokalemia: Code(s): E87.6 - Hypokalemia Status: Acute Assessment and Plan: Potassium 3.7 No replacement needed Time Spent With Patient Time with patient: Greater than 35 minutes Subjective Date/time seen: 10/07/24 15:40 Interval history: Patient still reporting abdominal pain. She is lying in the bed and I asked if she has been up today and she stated no. I discussed with her the importance of ambulating in the halls and that I now expect her to be up in a chair 3x a day with meals even if she does not eat for a minimum of 2 hours at a time. She still reports nausea and has not been able to take some of her morning medications today. CT yesterday was unimpressive. Labs reviewed. Review of Systems Review of Systems: All systems reviewed & are unremarkable except as noted in HPI and below Constitutional: Constitutional: Reports as per HPI and Reports no additional constitutional complaints Eyes: Eyes: Reports as per HPI and Reports no additional eye complaints ENT: Reports system reviewed and no additional complaints, except as documented and Reports as per HPI Cardiovascular: Cardiovascular: Reports as per HPI and Reports no additional cardiovascular complaints Respiratory: Respiratory: Reports as per HPI and Reports no additional respiratory complaints Gastrointestinal: Gastrointestinal: Reports as per HPI and Reports no additional gastrointestinal complaints Genitourinary: Genitourinary: Reports no additional female genitourinary complaints and Reports as per HPI Musculoskeletal: Musculoskeletal: Reports no additional musculoskeletal complaints and Reports as per HPI Integumentary/Breasts: Skin/Breast: Reports system reviewed and no additional complaints, except as docu and Reports as per HPI Neurologic: Reports system reviewed and no additional complaints, except as documented and Reports as per HPI Psychiatric: Psychiatric: Reports no additional psychiatric complaints and Reports as per HPI Exam Narrative: General: In no acute distress, well nourished Cardiac: Normal S1 and S2. No murmur, gallops or friction rubs, peripheral pulses intact. Respiratory: Lungs clear to auscultation, no adventitious lung sounds, currently on room air Gastrointestinal: distended, firm, tender, normoactive bowel sounds. Still reported BM's and is passing gas. Pain 10/10 in abdomen. : voiding without difficulty. Neuro: Alert and oriented x4 Objective Data Vital Signs Vital Signs: Vital Signs - 24 hr 10/06/24 20:00 10/06/24 21:28 10/07/24 05:30 Temperature 97.6 F 99.2 F Pulse Rate 99 109 H Respiratory Rate 18 18 Blood Pressure 178/96 H 191/90 H Pulse Oximetry 98 99 Oxygen Delivery Room Air 10/07/24 07:02 Temperature Pulse Rate Respiratory Rate Blood Pressure 120/80 Pulse Oximetry Oxygen Delivery Intake/Output Intake/Output: Intake & Output 10/04/24 10/05/24 10/06/24 10/07/24 23:59 23:59 23:59 23:59 Intake Total 1400 3872.5 250 1270 Output Total 350 Balance 1050 3872.5 250 1270 Meds/Results Medications: Active Medications Generic Name Dose Route Start Last Admin Trade Name Freq PRN Reason Stop Dose Admin Acetaminophen 650 mg 10/03/24 14:52 10/04/24 11:42 Acetaminophen 325 Mg Tablet PO 650 mg Q6H PRN Administration Mild Pain (1-3) or Fever Albuterol 2 puff 10/03/24 14:50 Albuterol Sulfate (*Sp) Aerosol 1 Puff INHALATION Q4H PRN shortness of breath or wheezing Alprazolam 0.25 mg 10/03/24 14:50 10/07/24 08:17 Alprazolam (*Crx) 0.25 Mg Tablet PO 0.25 mg BID PRN Administration anxiety Amitriptyline HCl 50 mg 10/03/24 21:00 10/06/24 20:24 Amitriptyline Hcl 25 Mg Tablet PO 50 mg HS STEVIE Administration Aspirin 81 mg 10/04/24 11:30 10/07/24 08:13 Aspirin 81 Mg Chewable Tablet PO 81 mg DAILY@0800 STEVIE Administration Atorvastatin Calcium 40 mg 10/04/24 11:30 10/07/24 08:13 Atorvastatin 40 Mg Tablet PO 40 mg DAILY STEVIE Administration Famotidine 20 mg 10/03/24 14:50 10/05/24 09:39 Famotidine 20 Mg Tablet PO 20 mg BID PRN Administration heartburn Fluticasone Propionate 1 spray 10/03/24 14:50 Fluticasone Propionate 0.05% Na Spr 16 Gm Btl (*Bkc) NASAL BID PRN allergies Gabapentin 100 mg 10/03/24 21:00 10/06/24 20:24 Gabapentin 100 Mg Capsule PO 100 mg QHS STEVIE Administration Piperacillin/Tazobactam/Dextrose 3.375 gm in 50 mls @ 100 mls/hr 10/03/24 12:00 10/07/24 11:16 Zosyn 3.375 Gm/Ns 50 Ml IVPB 100 mls/hr Q6H STEVIE Administration Lactated Ringer's 1,000 mls @ 75 mls/hr 10/03/24 07:20 10/07/24 02:53 Lr - Lactated Ringers Iv IV CONT 75 mls/hr .[id number] STEVIE Administration Lactulose 20 gm 10/04/24 13:00 10/07/24 11:22 Lactulose 20 Gm/30 Ml Udc PO 20 gm TID STEVIE Administration Levofloxacin 750 mg 10/05/24 13:00 10/07/24 11:25 Levofloxacin 750 Mg Tablet PO 10/13/24 13:01 750 mg Q48H STEVIE Administration Ondansetron HCl 4 mg 10/06/24 10:51 10/07/24 08:12 Ondansetron Inj 4 Mg/2 Ml Vial IV PUSH 4 mg Q4H PRN Administration Nausea And Vomiting Oxycodone/Acetaminophen 1 tab 10/03/24 14:50 10/07/24 11:16 Oxycodone/Acetaminophen (*Crx) 10-325 Mg Tablet PO 1 tab Q6H PRN Administration Pain Rated 6 or Greater Pantoprazole Sodium 40 mg 10/04/24 09:00 10/07/24 08:13 Pantoprazole 40 Mg Tablet PO 40 mg QAM STEVIE Administration Potassium Chloride 40 meq 10/07/24 12:35 Potassium Chloride 20 Meq Packet (For Liquid) PO DAILY [facility] Simethicone 250 mg 10/07/24 17:00 Simethicone 125 Mg Chew Tab PO QID [facility] Radiology Results: ITS Impressions Chest X-Ray 10/04/24 09:08 IMPRESSION: 1. Increasing opacities with some associated volume loss in the right upper lung zone consistent with atelectasis and could not exclude superimposed pneumonia or malignancy. Recommend either further evaluation with chest CT or short interval follow-up chest radiograph to document resolution. 2. Mild left basilar opacities and favor atelectasis over pneumonia. 3. Emphysema. Enema w/Water Soluble 10/04/24 10:10 IMPRESSION: 1. Large amount of stool scattered throughout the colon. No fixed stricture or mucosal irregularity to suggest malignancy. Chest CT 10/04/24 15:05 IMPRESSION: 3.4 cm right apical cavitary lesion with irregular wall thickening. Differential includes infection, malignancy, noninfectious granuloma, and pulmonary infarct with. Moderate emphysema. Small left and trace right pleural effusions. Abdomen/Pelvis CT 10/06/24 13:40 Impression: Extensive, prominent distention of most of the large bowel with an area of apparent luminal narrowing and abrupt caliber change at the distal sigmoid colon/proximal rectum, as detailed above. Appearance is similar to prior exam. No definite mass lesion seen. This could reflect a colonic stricture versus the possibility of a subtle infiltrating neoplasm, although again, no definite mass seen. Small to moderate left pleural effusion and small right pleural effusion. 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 Stable bilateral adrenal nodules, indeterminate. Spinal compression fractures, as above. Labs Labs: Laboratory Results - last 24 hr 10/07/24 13:00 WBC 12.8 H RBC 3.57 L Hgb 10.8 L Hct 34.2 L MCV 95.8 MCH 30.3 MCHC 31.6 L RDW 13.1 Plt Count 581 H MPV 8.7 Immature Gran % (Auto) 0.9 H Neut % (Auto) 78.6 H Lymph % (Auto) 10.7 L Reynolds % (Auto) 9.6 H Eos % (Auto) 0.0 Baso % (Auto) 0.2 Lymph # (Auto) 1.36 Reynolds # (Auto) 1.2 H Eos # (Auto) 0.0 Baso # (Auto) 0.0 Abs Immat Gran (auto) 0.12 H Absolute Neuts (auto) 10.0 H Absolute Nucleated RBC 0.000 Nucleated RBC % 0.0 Sodium 135 L Potassium 3.7 Chloride 100 Carbon Dioxide 33 H Anion Gap 2 L BUN 6 L Creatinine 0.50 L Estim Creat Clear Calc 57 Estimated GFR > 60 Glucose 89 Calcium 7.8 L Total Bilirubin 0.5 AST 39 H ALT 20 Alkaline Phosphatase 166 H Total Protein 6.0 L Albumin 2.6 L Quality VTE Prophylaxis VTE prophylaxis: mechanical ordered
[2024-10-07] MEDS: METHYLNALTREXONE 12 MG/0.6 ML VIAL SUB-Q (15:58)
[2024-10-07] MEDS: POTASSIUM CHLORIDE 20 MEQ PACKET (FOR LIQUID) 40 MEQ PO (15:59)
[2024-10-07] MEDS: SIMETHICONE 125 MG CHEW TAB 250 MG PO ×2 (16:00→20:12)
[2024-10-07] MEDS: GABAPENTIN 100 MG CAPSULE PO (20:12)
[2024-10-07] MEDS: AMITRIPTYLINE HCL 25 MG TABLET 50 MG PO (20:12)
[2024-10-07 20:40] VITALS: BP 143/87; PULSE 101; RESP 16; TEMP 36.6; O2SAT 97
[2024-10-08] MEDS: PIPERACILLN/TAZ 3.375GM/NS50ML 3.375 GM/50 ML BAG IVPB ×4 (00:26→17:44)
[2024-10-08] MEDS: LACTATED RINGERS 1,000 ML 75 ML IV CONT (05:10)
[2024-10-08] MEDS: oxyCODONE/ACETAMINOPHEN (*CRX) 10-325 MG TABLET 1 TAB PO ×3 (05:27→21:56)
[2024-10-08 06:00] VITALS: BP 124/86; PULSE 103; RESP 14; TEMP 36.6; O2SAT 97
[2024-10-08 08:00] VITALS: PULSE 103; RESP 14; O2SAT 97
--- NOTE | 2024-10-08 08:06 | P.PNIM_ITS ---
Progress Note: A&P Assessment and Plan (1) Constipation: Qualifiers: Constipation type: drug induced constipation Qualified Code(s): K59.03 - Drug induced constipation Code(s): K59.00 - Constipation, unspecified Status: Acute Assessment and Plan: * Continue Lactulose BID * Water soluble enema 10/04/24 with multiple BMs * Minimize narcotic use * Continue Nausea control with Zofran, however this can contribute to worsening constipation. Use with caution * Continue to wean Elavil * Abdomen firm, distended, tender * CT scan of abdomen pelvis show extensive prominent distension of most of the large bowel with an area of apparent luminal narrowing an abrupt caliber change at the distal sigmoid colon, appearance is similar to prior exam, no definite mass lesion seen. * Encouraged patient to ambulate in the halls as well as be up out of the bed for minimum of 2 hours with each meal even if she does not eat. She was told that she needs to work with therapy on all of these goals. She has not been up today. * methylnaltrexone given yesterday * Will give lactulose enema today (2) Stercoral colitis: Code(s): K52.89 - Other specified noninfective gastroenteritis and colitis Status: Acute Assessment and Plan: see above (3) Cavitary lesion of lung: Code(s): J98.4 - Other disorders of lung Status: Acute Assessment and Plan: * Chest x-ray showing increased opacities with volume loss in right upper lobe and mild left basilar opacities. * CT of the chest shows 3.4 cm right apical cavitary lesion and moderate emphysema * Pulmonology consulted and thinks this is likely infection versus malignancy and recommends longer duration antibiotics with Zosyn/Augmentin and Levaquin * TB and gold test pending * MRSA negative * Will need to follow up with pulmonology after discharge * Will also need to repeat CT scan in 6 weeks (4) Leukocytosis: Qualifiers: Leukocytosis type: unspecified Qualified Code(s): D72.829 - Elevated white blood cell count, unspecified Code(s): D72.829 - Elevated white blood cell count, unspecified Status: Acute Assessment and Plan: * White blood cell count down to 11.0 * Continue Zosyn for now, will change to Augmentin when she is able to hold down p.o. 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, dilation of the appendix likely secondary to stool impaction no fat stranding around the appendix to suggest appendicitis * CT scan of abdomen pelvis show extensive prominent distension of most of the large bowel with an area of apparent luminal narrowing an abrupt caliber change at the distal sigmoid colon, appearance is similar to prior exam, no definite mass lesion seen (5) Peripheral vascular disease of lower extremity: Onset Date: ~2007 Code(s): I73.9 - Peripheral vascular disease, unspecified Status: Acute Assessment and Plan: * Continue aspirin and Lipitor (6) Tobacco abuse: Code(s): Z72.0 - Tobacco use Status: Acute Assessment and Plan: * Smoking cessation information given (7) Hypokalemia: Code(s): E87.6 - Hypokalemia Status: Acute Assessment and Plan: * Potassium 3.7 * No replacement needed Time Spent With Patient Time with patient: 25 - 35 minutes Subjective Date/time seen: 10/08/24 08:06 Interval history: Patient is up in the chair this morning. She said that she is tolerating some food and holding down her medicine today. She will be ambulating in the [place] with the nurse today. She still has a lot of abdominal distension and pain however she did have some more bowel movement today. Labs reviewed. Review of Systems Review of Systems: All systems reviewed & are unremarkable except as noted in HPI and below Constitutional: Constitutional: Reports as per HPI and Reports no additional constitutional complaints Eyes: Eyes: Reports as per HPI and Reports no additional eye complaints ENT: Reports system reviewed and no additional complaints, except as documented and Reports as per HPI Cardiovascular: Cardiovascular: Reports as per HPI and Reports no additional cardiovascular complaints Respiratory: Respiratory: Reports as per HPI and Reports no additional respiratory complaints Gastrointestinal: Gastrointestinal: Reports as per HPI and Reports no additional gastrointestinal complaints Genitourinary: Genitourinary: Reports no additional female genitourinary complaints and Reports as per HPI Musculoskeletal: Musculoskeletal: Reports no additional musculoskeletal complaints and Reports as per HPI Integumentary/Breasts: Skin/Breast: Reports system reviewed and no additional complaints, except as docu and Reports as per HPI Neurologic: Reports system reviewed and no additional complaints, except as documented and Reports as per HPI Psychiatric: Psychiatric: Reports no additional psychiatric complaints and Reports as per HPI Exam Narrative: General: In no acute distress Cardiac: Normal S1 and S2. No murmur, gallops or friction rubs, peripheral pulses intact. Respiratory: Lungs clear to auscultation, no adventitious lung sounds, currently on room air Gastrointestinal: distended, firm, tender, normoactive bowel sounds. Still reported BM's and is passing gas. : voiding without difficulty. Neuro: Alert and oriented x4 Objective Data Vital Signs Vital Signs: Vital Signs - 24 hr 10/07/24 14:00 10/07/24 20:00 10/07/24 20:40 Temperature 97.4 F L 97.9 F Pulse Rate 76 101 H Respiratory Rate 20 16 Blood Pressure 130/70 143/87 H Pulse Oximetry 97 97 Oxygen Delivery Room Air 10/08/24 06:00 Temperature 97.9 F Pulse Rate 103 H Respiratory Rate 14 Blood Pressure 124/86 Pulse Oximetry 97 Oxygen Delivery Intake/Output Intake/Output: Intake & Output 10/05/24 10/06/24 10/07/24 10/08/24 23:59 23:59 23:59 23:59 Intake Total 3872.5 250 2595 1276.3 Balance 3872.5 250 2595 1276.3 Meds/Results Medications: Active Medications Generic Name Dose Route Start Last Admin Trade Name Freq PRN Reason Stop Dose Admin Acetaminophen 650 mg 10/03/24 14:52 10/04/24 11:42 Acetaminophen 325 Mg Tablet PO 650 mg Q6H PRN Administration Mild Pain (1-3) or Fever Albuterol 2 puff 10/03/24 14:50 Albuterol Sulfate (*Sp) Aerosol 1 Puff INHALATION Q4H PRN shortness of breath or wheezing Alprazolam 0.25 mg 10/03/24 14:50 10/07/24 20:12 Alprazolam (*Crx) 0.25 Mg Tablet PO 0.25 mg BID PRN Administration anxiety Amitriptyline HCl 50 mg 10/03/24 21:00 10/07/24 20:12 Amitriptyline Hcl 25 Mg Tablet PO 50 mg HS STEVIE Administration Aspirin 81 mg 10/04/24 11:30 10/07/24 08:13 Aspirin 81 Mg Chewable Tablet PO 81 mg DAILY@0800 STEVIE Administration Atorvastatin Calcium 40 mg 10/04/24 11:30 10/07/24 08:13 Atorvastatin 40 Mg Tablet PO 40 mg DAILY STEVIE Administration Famotidine 20 mg 10/03/24 14:50 10/05/24 09:39 Famotidine 20 Mg Tablet PO 20 mg BID PRN Administration heartburn Fluticasone Propionate 1 spray 10/03/24 14:50 Fluticasone Propionate 0.05% Na Spr 16 Gm Btl (*Bkc) NASAL BID PRN allergies Gabapentin 100 mg 10/03/24 21:00 10/07/24 20:12 Gabapentin 100 Mg Capsule PO 100 mg QHS STEVEI Administration Piperacillin/Tazobactam/Dextrose 3.375 gm in 50 mls @ 100 mls/hr 10/03/24 12:00 10/08/24 05:10 Zosyn 3.375 Gm/Ns 50 Ml IVPB 100 mls/hr Q6H STEVIE Administration Lactated Ringer's 1,000 mls @ 75 mls/hr 10/03/24 07:20 10/08/24 05:10 Lr - Lactated Ringers Iv IV CONT 75 mls/hr .[id number] STEVIE Administration Lactulose 20 gm 10/04/24 13:00 10/07/24 15:59 Lactulose 20 Gm/30 Ml Udc PO 20 gm TID STEVIE Administration Levofloxacin 750 mg 10/05/24 13:00 10/07/24 11:25 Levofloxacin 750 Mg Tablet PO 10/13/24 13:01 750 mg Q48H STEVIE Administration Ondansetron HCl 4 mg 10/06/24 10:51 10/07/24 20:17 Ondansetron Inj 4 Mg/2 Ml Vial IV PUSH 4 mg Q4H PRN Administration Nausea And Vomiting Oxycodone/Acetaminophen 1 tab 10/03/24 14:50 10/08/24 05:27 Oxycodone/Acetaminophen (*Crx) 10-325 Mg Tablet PO 1 tab Q6H PRN Administration Pain Rated 6 or Greater Pantoprazole Sodium 40 mg 10/04/24 09:00 10/07/24 08:13 Pantoprazole 40 Mg Tablet PO 40 mg QAM STEVIE Administration Potassium Chloride 40 meq 10/07/24 12:35 10/07/24 15:59 Potassium Chloride 20 Meq Packet (For Liquid) PO 40 meq DAILY STEVIE Administration Simethicone 250 mg 10/07/24 17:00 10/07/24 20:12 Simethicone 125 Mg Chew Tab PO 250 mg QID STEVIE Administration Radiology Results: ITS Impressions Chest X-Ray 10/04/24 09:08 IMPRESSION: 1. Increasing opacities with some associated volume loss in the right upper lung zone consistent with atelectasis and could not exclude superimposed pneumonia or malignancy. Recommend either further evaluation with chest CT or short interval follow-up chest radiograph to document resolution. 2. Mild left basilar opacities and favor atelectasis over pneumonia. 3. Emphysema. Enema w/Water Soluble 10/04/24 10:10 IMPRESSION: 1. Large amount of stool scattered throughout the colon. No fixed stricture or mucosal irregularity to suggest malignancy. Chest CT 10/04/24 15:05 IMPRESSION: 3.4 cm right apical cavitary lesion with irregular wall thickening. Differential includes infection, malignancy, noninfectious granuloma, and pulmonary infarct with. Moderate emphysema. Small left and trace right pleural effusions. Abdomen/Pelvis CT 10/06/24 13:40 Impression: Extensive, prominent distention of most of the large bowel with an area of apparent luminal narrowing and abrupt caliber change at the distal sigmoid colon/proximal rectum, as detailed above. Appearance is similar to prior exam. No definite mass lesion seen. This could reflect a colonic stricture versus the possibility of a subtle infiltrating neoplasm, although again, no definite mass seen. Small to moderate left pleural effusion and small right pleural effusion. 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 Stable bilateral adrenal nodules, indeterminate. Spinal compression fractures, as above. Labs Labs: Laboratory Results - last 24 hr 10/07/24 13:00 WBC 12.8 H RBC 3.57 L Hgb 10.8 L Hct 34.2 L MCV 95.8 MCH 30.3 MCHC 31.6 L RDW 13.1 Plt Count 581 H MPV 8.7 Immature Gran % (Auto) 0.9 H Neut % (Auto) 78.6 H Lymph % (Auto) 10.7 L [place] % (Auto) 9.6 H Eos % (Auto) 0.0 Baso % (Auto) 0.2 Lymph # (Auto) 1.36 [place] # (Auto) 1.2 H Eos # (Auto) 0.0 Baso # (Auto) 0.0 Abs Immat Gran (auto) 0.12 H Absolute Neuts (auto) 10.0 H Absolute Nucleated RBC 0.000 Nucleated RBC % 0.0 Sodium 135 L Potassium 3.7 Chloride 100 Carbon Dioxide 33 H Anion Gap 2 L BUN 6 L Creatinine 0.50 L Estim Creat Clear Calc 57 Estimated GFR > 60 Glucose 89 Calcium 7.8 L Total Bilirubin 0.5 AST 39 H ALT 20 Alkaline Phosphatase 166 H Total Protein 6.0 L Albumin 2.6 L Quality VTE Prophylaxis VTE prophylaxis: mechanical ordered
[2024-10-08] MEDS: SIMETHICONE 125 MG CHEW TAB 250 MG PO ×4 (08:23→21:52)
[2024-10-08] MEDS: POTASSIUM CHLORIDE 20 MEQ PACKET (FOR LIQUID) 40 MEQ PO (08:23)
[2024-10-08] MEDS: ASPIRIN 81 MG CHEWABLE TABLET PO (08:24)
[2024-10-08] MEDS: ATORVASTATIN 40 MG TABLET PO (08:24)
[2024-10-08] MEDS: PANTOPRAZOLE 40 MG TABLET PO (08:24)
[2024-10-08 10:27] LABS: Basophils Percent Auto 0.3 % (0.2-1.2); Hematocrit 36.9 % (37.0-47.0); Hemoglobin 11.8 g/dL (12.0-15.0); Immature Granulocyte Absolute 0.09 K/mm3 (0.00-0.031); Immature Granulocyte Percent A 0.8 % (0-0.5); Lymphocytes Absolute Auto 1.17 K/mm3 (0.9-3.2); Lymphocytes Percent Auto 10.6 % (18.3-44.2); Mean Corpuscular Hemoglobin 30.8 pg (26-34); Mean Corpuscular Volume 96.3 fl (80-100); Mean Platelet Volume 8.6 fl (7.4-10.4); Monocytes Absolute Auto 0.8 K/mm3 (0.1-0.6); Monocytes Percent Auto 6.9 % (2.6-8.5); Neutrophils Percent Auto 81.4 % (45.5-73.1); Platelet Count Result 623 k/mm3 (150-375); Red Blood Count 3.83 M/mm3 (4.2-5.4); Red Cell Distribution Width 13.2 % (11.5-14.5)
[2024-10-08 10:39] LABS: Alanine Aminotransferase 25 U/L (6-35); Albumin Level 2.8 g/dL (3.5-5.1); Alkaline Phosphatase 176 U/L (38-126); Anion Gap 3 mmol/L (4-12); Aspartate Amino Transferase 69 U/L (14-36); Bilirubin,Total 0.7 mg/dL (0.2-1.3); Blood Urea Nitrogen 9 mg/dL (7-17); Calcium 7.9 mg/dL (8.4-10.2); Carbon Dioxide 34 mmol/L (22-30); Chloride 98 mmol/L (98-107); Estimated CRCL calculation 57 ml/min; Estimated Glomerular Filt Rate > 60; Glucose 110 mg/dL (65-110); Potassium 3.3 mmol/L (3.4-5.0); Sodium 135 mmol/L (137-145)
--- NOTE | 2024-10-08 11:20 | PCOTNOTE ---
Patient in bed, per Patient's daughter, she has been up already to the chair, did activity, and now is resting, she is having increased pain at this time. Patient in bed, moaning, and stated to much pain. Will check back at a later time.
[2024-10-08] MEDS: LACTULOSE ENEMA 200 GM/1,000 ML ENEMA RECTAL (12:45)
--- NOTE | 2024-10-08 13:03 | PCOTNOTE ---
Patient in bed on her side, Patient verbalized she was just given an enema and needs to rest for today.
[2024-10-08] MEDS: SENNA/DOCUSATE SODIUM TABLET 1 TAB PO ×2 (13:24→21:51)
[2024-10-08] MEDS: levoFLOXacin 750 MG TABLET PO (13:25)
[2024-10-08 14:00] VITALS: BP 133/76; PULSE 95; RESP 18; TEMP 36.7; O2SAT 96
[2024-10-08 18:43] LABS: NIL 0.02 IU/mL; Quantiferon TB Plus, 1T INDETERMINATE (NEGATIVE)
[2024-10-08 21:05] VITALS: BP 146/79; PULSE 97; RESP 16; TEMP 36.5; O2SAT 96
[2024-10-08] MEDS: GABAPENTIN 100 MG CAPSULE PO (21:51)
[2024-10-08] MEDS: AMITRIPTYLINE HCL 25 MG TABLET 50 MG PO (21:52)
[2024-10-08] MEDS: ALPRAZolam (*CRX) 0.25 MG TABLET PO (21:57)
[2024-10-08] MEDS: ONDANSETRON INJ 4 MG/2 ML VIAL IV PUSH (22:10)
[2024-10-09] VITALS (7 sets, daily range): BP systolic 158–165; BP diastolic 78–96; PULSE 100–126; RESP 16–20; TEMP 36.3–37.4; O2SAT 92–100
[2024-10-09] MEDS: PIPERACILLN/TAZ 3.375GM/NS50ML 3.375 GM/50 ML BAG IVPB ×2 (01:06→05:03)
[2024-10-09] MEDS: ONDANSETRON INJ 4 MG/2 ML VIAL IV PUSH ×3 (05:02→20:27)
[2024-10-09] MEDS: oxyCODONE/ACETAMINOPHEN (*CRX) 10-325 MG TABLET 1 TAB PO ×3 (05:02→20:11)
[2024-10-09 06:30] LABS: Basophils Percent Auto 0.1 % (0.2-1.2); Eosinophils Percent Auto 0.1 % (0-4.4); Hematocrit 29.7 % (37.0-47.0); Hemoglobin 9.5 g/dL (12.0-15.0); Immature Granulocyte Absolute 0.05 K/mm3 (0.00-0.031); Immature Granulocyte Percent A 0.7 % (0-0.5); Lymphocytes Absolute Auto 0.91 K/mm3 (0.9-3.2); Lymphocytes Percent Auto 12.3 % (18.3-44.2); Mean Corpuscular Hemoglobin 30.4 pg (26-34); Mean Corpuscular Volume 95.2 fl (80-100); Mean Platelet Volume 8.8 fl (7.4-10.4); Neutrophils Absolute Auto 5.5 K/mm3 (1.3-6.7); Neutrophils Percent Auto 73.8 % (45.5-73.1); Platelet Count Result 516 k/mm3 (150-375); Red Blood Count 3.12 M/mm3 (4.2-5.4); Red Cell Distribution Width 13.2 % (11.5-14.5); White Blood Count 7.4 K/mm3 (4.5-10.0)
[2024-10-09 06:55] LABS: Alanine Aminotransferase 19 U/L (6-35); Albumin Level 2.2 g/dL (3.5-5.1); Alkaline Phosphatase 131 U/L (38-126); Anion Gap 5 mmol/L (4-12); Aspartate Amino Transferase 40 U/L (14-36); Bilirubin,Total 0.5 mg/dL (0.2-1.3); Blood Urea Nitrogen 8 mg/dL (7-17); Calcium 7.2 mg/dL (8.4-10.2); Carbon Dioxide 31 mmol/L (22-30); Chloride 100 mmol/L (98-107); Estimated CRCL calculation 57 ml/min; Estimated Glomerular Filt Rate > 60; Glucose 65 mg/dL (65-110); Potassium 2.2 mmol/L (3.4-5.0); Sodium 136 mmol/L (137-145)
--- NOTE | 2024-10-09 07:10 | P.PNIM_ITS ---
Progress Note: A&P Assessment and Plan (1) Constipation: Qualifiers: Constipation type: drug induced constipation Qualified Code(s): K59.03 - Drug induced constipation Code(s): K59.00 - Constipation, unspecified Status: Acute Assessment and Plan: * Continue Lactulose BID * Water soluble enema 10/04/24 with multiple BMs * Minimize narcotic use * Continue Nausea control with Zofran, however this can contribute to worsening constipation. Use with caution * Continue to wean Elavil * Abdomen firm, distended, tender * CT scan of abdomen pelvis show extensive prominent distension of most of the large bowel with an area of apparent luminal narrowing an abrupt caliber change at the distal sigmoid colon, appearance is similar to prior exam, no definite mass lesion seen. * Encouraged patient to ambulate in the halls as well as be up out of the bed for minimum of 2 hours with each meal even if she does not eat. She was told that she needs to work with therapy on all of these goals. She has not been up today. * continue docusate sodium/Senna * continue lactulose b.i.d. * patient had 6 liquid bowel movements yesterday with a lactulose enema * KUB showing persistent gaseous distention of the colon with small distal colonic stool and small amount scattered residual oral contrast material from water-soluble enema from 5 days prior. * Reconsulting GI for further recommendations (2) Stercoral colitis: Code(s): K52.89 - Other specified noninfective gastroenteritis and colitis Status: Acute Assessment and Plan: see above (3) Hypokalemia: Code(s): E87.6 - Hypokalemia Status: Acute Assessment and Plan: * Potassium 2.2 * likely decreased from multiple bowel movements overnight * will give 40 mEq of p.o. potassium this morning and again around 1600 * will also give a 40 mEq K rider * continuous tele for now (4) Cavitary lesion of lung: Code(s): J98.4 - Other disorders of lung Status: Acute Assessment and Plan: * Chest x-ray showing increased opacities with volume loss in right upper lobe and mild left basilar opacities. * CT of the chest shows 3.4 cm right apical cavitary lesion and moderate emphysema * Pulmonology consulted and thinks this is likely infection versus malignancy and recommends longer duration antibiotics with Zosyn/Augmentin and Levaquin * TB and gold test pending * MRSA negative * Will need to follow up with pulmonology after discharge * Will also need to repeat CT scan in 6 weeks (5) Leukocytosis: Qualifiers: Leukocytosis type: unspecified Qualified Code(s): D72.829 - Elevated white blood cell count, unspecified Code(s): D72.829 - Elevated white blood cell count, unspecified Status: Acute Assessment and Plan: * White blood cell count down to 7.4 * changing Zosyn to Augmentin today 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, dilation of the appendix likely secondary to stool impaction no fat stranding around the appendix to suggest appendicitis * CT scan of abdomen pelvis show extensive prominent distension of most of the large bowel with an area of apparent luminal narrowing an abrupt caliber change at the distal sigmoid colon, appearance is similar to prior exam, no definite mass lesion seen (6) Peripheral vascular disease of lower extremity: Onset Date: ~2007 Code(s): I73.9 - Peripheral vascular disease, unspecified Status: Acute Assessment and Plan: * Continue aspirin and Lipitor (7) Tobacco abuse: Code(s): Z72.0 - Tobacco use Status: Acute Assessment and Plan: * Smoking cessation information given Time Spent With Patient Time with patient: 25 - 35 minutes Subjective Date/time seen: 10/09/24 07:10 Interval history: Patient still reporting increased pain and tenderness in the abdomen, however her abdomen is soft. Nursing reporting that she has been having liquid stools. KUB still showing stool burden with contrast and persistent gas patterns despite multiple attempts of enemas. Labs and imaging reviewed. Review of Systems Review of Systems: All systems reviewed & are unremarkable except as noted in HPI and below Constitutional: Constitutional: Reports as per HPI and Reports no additional constitutional complaints Eyes: Eyes: Reports as per HPI and Reports no additional eye complaints ENT: Reports system reviewed and no additional complaints, except as documented and Reports as per HPI Cardiovascular: Cardiovascular: Reports as per HPI and Reports no additional cardiovascular complaints Respiratory: Respiratory: Reports as per HPI and Reports no additional respiratory complaints Gastrointestinal: Gastrointestinal: Reports as per HPI and Reports no additional gastrointestinal complaints Genitourinary: Genitourinary: Reports no additional female genitourinary complaints and Reports as per HPI Musculoskeletal: Musculoskeletal: Reports no additional musculoskeletal complaints and Reports as per HPI Integumentary/Breasts: Skin/Breast: Reports system reviewed and no additional complaints, except as docu and Reports as per HPI Neurologic: Reports system reviewed and no additional complaints, except as documented and Reports as per HPI Psychiatric: Psychiatric: Reports no additional psychiatric complaints and Reports as per HPI Exam Narrative: General: In no acute distress Cardiac: Normal S1 and S2. No murmur, gallops or friction rubs, peripheral pulses intact. Respiratory: Lungs clear to auscultation, no adventitious lung sounds, currently on room air Gastrointestinal: distended, softer today, tender, normoactive bowel sounds. Still reported liquid BM's and is passing gas. : voiding without difficulty. Neuro: Alert and oriented x4 Objective Data Vital Signs Vital Signs: Vital Signs - 24 hr 10/08/24 08:00 10/08/24 14:00 10/08/24 21:05 Temperature 98.1 F 97.7 F Pulse Rate 103 H 95 97 Respiratory Rate 14 18 16 Blood Pressure 133/76 146/79 H Pulse Oximetry 97 96 96 Oxygen Delivery Room Air Fraction of Inspired Oxygen 10/09/24 04:55 Temperature 99.4 F Pulse Rate 100 Respiratory Rate 20 Blood Pressure 165/78 H Pulse Oximetry 92 Oxygen Delivery Fraction of Inspired Oxygen Intake/Output Intake/Output: Intake & Output 10/06/24 10/07/24 10/08/24 10/09/24 23:59 23:59 23:59 23:59 Intake Total 250 2595 1426.3 150 Balance 250 2595 1426.3 150 Meds/Results Medications: Active Medications Generic Name Dose Route Start Last Admin Trade Name Freq PRN Reason Stop Dose Admin Acetaminophen 650 mg 10/03/24 14:52 10/04/24 11:42 Acetaminophen 325 Mg Tablet PO 650 mg Q6H PRN Administration Mild Pain (1-3) or Fever Albuterol 2 puff 10/03/24 14:50 Albuterol Sulfate (*Sp) Aerosol 1 Puff INHALATION Q4H PRN shortness of breath or wheezing Alprazolam 0.25 mg 10/03/24 14:50 10/08/24 21:57 Alprazolam (*Crx) 0.25 Mg Tablet PO 0.25 mg BID PRN Administration anxiety Amitriptyline HCl 50 mg 10/03/24 21:00 10/08/24 21:52 Amitriptyline Hcl 25 Mg Tablet PO 50 mg HS STEVIE Administration Aspirin 81 mg 10/04/24 11:30 10/08/24 08:24 Aspirin 81 Mg Chewable Tablet PO 81 mg DAILY@0800 STEVIE Administration Atorvastatin Calcium 40 mg 10/04/24 11:30 10/08/24 08:24 Atorvastatin 40 Mg Tablet PO 40 mg DAILY STEVIE Administration Famotidine 20 mg 10/03/24 14:50 10/05/24 09:39 Famotidine 20 Mg Tablet PO 20 mg BID PRN Administration heartburn Fluticasone Propionate 1 spray 10/03/24 14:50 Fluticasone Propionate 0.05% Na Spr 16 Gm Btl (*Bkc) NASAL BID PRN allergies Gabapentin 100 mg 10/03/24 21:00 10/08/24 21:51 Gabapentin 100 Mg Capsule PO 100 mg QHS STEVIE Administration Piperacillin/Tazobactam/Dextrose 3.375 gm in 50 mls @ 100 mls/hr 10/03/24 12:00 10/09/24 05:03 Zosyn 3.375 Gm/Ns 50 Ml IVPB 100 mls/hr Q6H STEVIE Administration Lactated Ringer's 1,000 mls @ 75 mls/hr 10/03/24 07:20 10/08/24 05:10 Lr - Lactated Ringers Iv IV CONT 75 mls/hr .[id number] STEVIE Administration Potassium Chloride 40 meq/ 520 mls @ 130 mls/hr 10/09/24 07:06 Sodium Chloride IVPB 10/09/24 11:05 ONCE ONE Lactulose 20 gm 10/04/24 13:00 10/08/24 17:45 Lactulose 20 Gm/30 Ml Udc PO Not Given TID STEVIE Levofloxacin 750 mg 10/08/24 14:00 10/08/24 13:25 Levofloxacin 750 Mg Tablet PO 10/13/24 14:01 750 mg DAILY@1400 STEVIE Administration Ondansetron HCl 4 mg 10/06/24 10:51 10/09/24 05:02 Ondansetron Inj 4 Mg/2 Ml Vial IV PUSH 4 mg Q4H PRN Administration Nausea And Vomiting Oxycodone/Acetaminophen 1 tab 10/03/24 14:50 10/09/24 05:02 Oxycodone/Acetaminophen (*Crx) 10-325 Mg Tablet PO 1 tab Q6H PRN Administration Pain Rated 6 or Greater Pantoprazole Sodium 40 mg 10/04/24 09:00 10/08/24 08:24 Pantoprazole 40 Mg Tablet PO 40 mg QAM STEVIE Administration Potassium Chloride 40 meq 10/07/24 12:35 10/08/24 08:23 Potassium Chloride 20 Meq Packet (For Liquid) PO 40 meq DAILY STEVIE Administration Potassium Chloride 40 meq 10/09/24 07:06 Potassium Chloride 20 Meq Er Tablet PO 10/09/24 07:07 ONCE ONE Potassium Chloride 40 meq 10/09/24 16:00 Potassium Chloride 20 Meq Er Tablet PO 10/09/24 16:01 ONCE ONE Senna/Docusate Sodium 1 tab 10/08/24 13:00 10/08/24 21:51 Senna/Docusate Sodium Tablet PO 1 tab Q12HR STEVIE Administration Simethicone 250 mg 10/07/24 17:00 10/08/24 21:52 Simethicone 125 Mg Chew Tab PO 250 mg QID STEVIE Administration Radiology Results: ITS Impressions Chest X-Ray 10/04/24 09:08 IMPRESSION: 1. Increasing opacities with some associated volume loss in the right upper lung zone consistent with atelectasis and could not exclude superimposed pneumonia or malignancy. Recommend either further evaluation with chest CT or short interval follow-up chest radiograph to document resolution. 2. Mild left basilar opacities and favor atelectasis over pneumonia. 3. Emphysema. Enema w/Water Soluble 10/04/24 10:10 IMPRESSION: 1. Large amount of stool scattered throughout the colon. No fixed stricture or mucosal irregularity to suggest malignancy. Chest CT 10/04/24 15:05 IMPRESSION: 3.4 cm right apical cavitary lesion with irregular wall thickening. Differential includes infection, malignancy, noninfectious granuloma, and pulmonary infarct with. Moderate emphysema. Small left and trace right pleural effusions. Abdomen/Pelvis CT 10/06/24 13:40 Impression: Extensive, prominent distention of most of the large bowel with an area of apparent luminal narrowing and abrupt caliber change at the distal sigmoid colon/proximal rectum, as detailed above. Appearance is similar to prior exam. No definite mass lesion seen. This could reflect a colonic stricture versus the possibility of a subtle infiltrating neoplasm, although again, no definite mass seen. Small to moderate left pleural effusion and small right pleural effusion. 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 Stable bilateral adrenal nodules, indeterminate. Spinal compression fractures, as above. Labs Labs: Laboratory Results - last 24 hr 10/04/24 10/08/24 10/09/24 20:29 10:11 05:53 WBC 11.0 H 7.4 RBC 3.83 L 3.12 L Hgb 11.8 L 9.5 L Hct 36.9 L 29.7 L MCV 96.3 95.2 MCH 30.8 30.4 MCHC 32.0 32.0 RDW 13.2 13.2 Plt Count 623 H 516 H MPV 8.6 8.8 Immature Gran % (Auto) 0.8 H 0.7 H Neut % (Auto) 81.4 H 73.8 H Lymph % (Auto) 10.6 L 12.3 L Amite % (Auto) 6.9 13.0 H Eos % (Auto) 0.0 0.1 Baso % (Auto) 0.3 0.1 L Lymph # (Auto) 1.17 0.91 Amite # (Auto) 0.8 H 1.0 H Eos # (Auto) 0.0 0.0 Baso # (Auto) 0.0 0.0 Abs Immat Gran (auto) 0.09 H 0.05 H Absolute Neuts (auto) 9.0 H 5.5 Absolute Nucleated RBC 0.000 0.000 Nucleated RBC % 0.0 0.0 Sodium 135 L 136 L Potassium 3.3 L 2.2 L* Chloride 98 100 Carbon Dioxide 34 H 31 H Anion Gap 3 L 5 BUN 9 8 Creatinine 0.50 L 0.50 L Estim Creat Clear Calc 57 57 Estimated GFR > 60 > 60 Glucose 110 65 Calcium 7.9 L 7.2 L Total Bilirubin 0.7 0.5 AST 69 H 40 H ALT 25 19 Alkaline Phosphatase 176 H 131 H Total Protein 6.0 L 5.0 L Albumin 2.8 L 2.2 L TB Test (QFT) Gold Plus Indeterminate A TB Test (QFT) Nil 0.02 TB Test Mitogen - Nil 0.08 TB Test Ag - Nil 1 0.00 TB Test Ag - Nil 2 0.00 Quality VTE Prophylaxis VTE prophylaxis: mechanical ordered
[2024-10-09 07:23] LABS: Magnesium 1.9 mg/dL (1.6-2.3)
[2024-10-09] MEDS: POTASSIUM CHLORIDE INJ 40 MEQ in SODIUM CHLORIDE 0.9% IV 500 ML 75 MEQ IVPB (07:59)
[2024-10-09] MEDS: ASPIRIN 81 MG CHEWABLE TABLET PO (08:05)
[2024-10-09] MEDS: PANTOPRAZOLE 40 MG TABLET PO (08:05)
[2024-10-09] MEDS: ACETAMINOPHEN 325 MG TABLET 650 MG PO (08:05)
[2024-10-09] MEDS: SENNA/DOCUSATE SODIUM TABLET 1 TAB PO ×2 (08:05→20:11)
[2024-10-09] MEDS: ALPRAZolam (*CRX) 0.25 MG TABLET PO ×2 (08:06→20:11)
[2024-10-09] MEDS: ATORVASTATIN 40 MG TABLET PO (08:06)
[2024-10-09] MEDS: POTASSIUM CHLORIDE 20 MEQ ER TABLET 40 MEQ PO ×2 (08:07→17:13)
[2024-10-09] MEDS: POTASSIUM CHLORIDE 20 MEQ PACKET (FOR LIQUID) 40 MEQ PO (08:08)
[2024-10-09] MEDS: SIMETHICONE 125 MG CHEW TAB 250 MG PO ×4 (08:12→20:11)
[2024-10-09] MEDS: LACTULOSE 20 GM/30 ML UDC PO ×3 (08:12→17:14)
[2024-10-09] MEDS: levoFLOXacin 750 MG TABLET PO (13:34)
[2024-10-09] MEDS: AMOXICILLIN/CLAVULANATE K 875-125 MG TAB 1 TABLET PO (17:13)
[2024-10-09] MEDS: AMITRIPTYLINE HCL 25 MG TABLET 50 MG PO (20:11)
[2024-10-09] MEDS: GABAPENTIN 100 MG CAPSULE PO (20:11)
--- NOTE | 2024-10-09 21:30 | PC.NURSE ---
Attempted to give patient her PO meds this evening. Patient has difficulty swallowing her meds and vomits when she swallows meds or anything orally. Daughter at bedside has been assisting with medication administration. Patient has several pills at bedside from previous shift. Appears to be potassium pills and lactulose. Patient conts to c/o 10/10 pain to back and was unable to keep PO pain meds down, even after crushing meds and putting them in applesauce.
[2024-10-09] MEDS: MORPHINE SULFATE (*CRX) 2 MG/ML INJ IV PUSH (22:41)
[2024-10-10] VITALS (10 sets, daily range): BP systolic 117–149; BP diastolic 70–87; PULSE 102–114; RESP 16–20; TEMP 36.4–36.9; O2SAT 93–100
[2024-10-10 06:12] LABS: Basophils Percent Auto 0.2 % (0.2-1.2); Eosinophils Percent Auto 0.1 % (0-4.4); Hematocrit 32.2 % (37.0-47.0); Hemoglobin 10.2 g/dL (12.0-15.0); Immature Granulocyte Absolute 0.09 K/mm3 (0.00-0.031); Immature Granulocyte Percent A 0.9 % (0-0.5); Lymphocytes Percent Auto 10.2 % (18.3-44.2); Mean Corpuscular HGB Conc 31.7 g/dl (32-36); Mean Corpuscular Hemoglobin 30.3 pg (26-34); Mean Corpuscular Volume 95.5 fl (80-100); Mean Platelet Volume 8.6 fl (7.4-10.4); Monocytes Absolute Auto 1.1 K/mm3 (0.1-0.6); Monocytes Percent Auto 11.3 % (2.6-8.5); Neutrophils Absolute Auto 7.6 K/mm3 (1.3-6.7); Neutrophils Percent Auto 77.3 % (45.5-73.1); Platelet Count Result 546 k/mm3 (150-375); Red Blood Count 3.37 M/mm3 (4.2-5.4); Red Cell Distribution Width 13.4 % (11.5-14.5); White Blood Count 9.8 K/mm3 (4.5-10.0)
[2024-10-10 06:25] LABS: Alanine Aminotransferase 22 U/L (6-35); Albumin Level 2.4 g/dL (3.5-5.1); Alkaline Phosphatase 155 U/L (38-126); Anion Gap 3 mmol/L (4-12); Aspartate Amino Transferase 42 U/L (14-36); Bilirubin,Total 0.4 mg/dL (0.2-1.3); Blood Urea Nitrogen 4 mg/dL (7-17); Calcium 7.7 mg/dL (8.4-10.2); Carbon Dioxide 28 mmol/L (22-30); Chloride 105 mmol/L (98-107); Estimated CRCL calculation 69 ml/min; Estimated Glomerular Filt Rate > 60; Glucose 84 mg/dL (65-110); Sodium 136 mmol/L (137-145)
[2024-10-10] MEDS: ONDANSETRON INJ 4 MG/2 ML VIAL IV PUSH ×3 (08:29→18:44)
[2024-10-10] MEDS: oxyCODONE/ACETAMINOPHEN (*CRX) 10-325 MG TABLET 1 TAB PO (11:51)
--- NOTE | 2024-10-10 12:15 | WPDGICN ---
Assessment and Plan Assessment and plan (1) Narcotic bowel syndrome: Code(s): K63.89 - Other specified diseases of intestine; T40.601A - Poisoning by unspecified narcotics, accidental (unintentional), initial encounter Status: Acute Assessment and Plan: on bowel regimen CT reviewed, noted narrowing but no obvious mass. Given ongoing symptom will do sigmoidoscopy tomorrow, probably will help disimpaction and assess if any lesion (2) Constipation: Qualifiers: Constipation type: drug induced constipation Qualified Code(s): K59.03 - Drug induced constipation Code(s): K59.00 - Constipation, unspecified Status: Acute Assessment and Plan: sigmoidoscopy tomorrow on bowel regimen (3) Abnormal CT scan, colon: Code(s): R93.3 - Abnormal findings on diagnostic imaging of other parts of digestive tract Status: Acute Assessment and Plan: need to rule out malignancy (4) Underweight due to inadequate caloric intake: Code(s): R63.6 - Underweight Status: Acute (5) Nausea and vomiting in adult: Code(s): R11.2 - Nausea with vomiting, unspecified Status: Acute (6) Coffee ground emesis: Code(s): K92.0 - Hematemesis Status: Acute Assessment and Plan: egd tomorrow, report of dark emesis, also poor appetite GI Consult Note Consult date/time: 10/10/24 12:15 Reason for consult: constipation, n/v, abnormal colon by ct scan HPI: Parul Lopez is a 74 year old female with history of PAD, COPD, HTN and recently hospitalized with stercoral colitis with constipation from narcotic use here on 09/21/24 for abdominal pain and found to have stercoral colitis, constipation and severe-protein calorie malnutrition treated with bowel regimen. She had water soluble enema no strictures noted and finally was discharged on 09/24/24 on Linzess but could not afford and has been using mostly miralax. Last colonoscopy was 15-20 years. She has not had much of BM and also started with nausea and noted dark emesis. Admitted again few days ago, WBC 22K. UDS positive for benzodiazepines and opiates (both of which are on her home med list). Alcohol <10. CT Abd/pelvis showing a large volume of stool in the colon with wall thickening on the descending colon and fat stranding around the descending and sigmoid colon. Still poor appetite, received lactulose but only small amount of stool caliber. Review of Systems Constitutional: Constitutional: Reports fatigue Eyes: Eyes: Denies blurry vision ENT: Denies epistaxis Cardiovascular: Cardiovascular: Denies chest pain Respiratory: Respiratory: Denies cough Gastrointestinal: Gastrointestinal: Reports abdominal pain, Reports constipation, Reports nausea and Reports vomiting Genitourinary: Genitourinary: Denies urinary urgency Musculoskeletal: Musculoskeletal: Denies neck pain Integumentary/Breasts: Skin/Breast: Denies rash Neurologic: Denies Abnormal speech present Psychiatric: Psychiatric: Denies behavioral changes [facility] Past Medical History Medical History (Updated 10/10/24 @ 12:20 by Tristen Guadalupe MD) Coffee ground emesis Nausea and vomiting in adult Abnormal CT scan, colon Essential hypertension Vertigo Sinusitis Sinus arrhythmia (~12/03/23) no atrial fibrillation on EKG 12/03/2023. Sinus rhythm with sinus arrhythmia. Arrhythmia (~12/03/23) irregularly irregular rhythm on 12/03/2023. Peripheral vascular disease of lower extremity (~2007) history of stents distal aorta to the common iliac bilaterally 11/09/2007. Anemia hemoglobin 11.4 on 04/04/2022. Hemoglobin 11.3 on 04/15/2022. Vitamin B12 was 1200 with folic acid greater than 24 and iron 47. hemoglobin 11.9 with iron 43 on 12/03/2023. Abdominal aortic atherosclerosis (~2021) severe proximal aortic atherosclerotic disease with stenosis on CT of the abdomen ER 04/15/2022. UTI (urinary tract infection) Underweight due to inadequate caloric intake Rhinitis Insomnia GERD (gastroesophageal reflux disease) Microscopic hematuria Mixed hyperlipidemia Total cholesterol 166, HDL 40, triglycerides 146 and LDL 101 with AST 19 and ALT 13 on 04/04/2022 with thyroid function normal with TSH 1.98 and free T4 1.3. Total cholesterol 186 with triglycerides 146 and HDL 40 on 12/03/2023. Abnormal fasting glucose Fasting glucose 102 with hemoglobin A1c 4.8 on 04/04/2022. Fasting glucose 104 on 12/03/2023. Age-related osteoporosis without current pathological fracture Chronic bilateral low back pain Chronic depression Chronic obstructive pulmonary disease, unspecified Surgical History Surgical History S/P peripheral artery angioplasty with stent placement The patient had attempt at stent placement our facility in 2006 but was unsuccessful. Evidently patient later had a secondary procedure at another facility but details are not available Hx of cholecystectomy Family History Family History Father Family history of cardiovascular disease, Onset Age: 70 Mother Family history of malignant neoplasm, Onset Age: 60 Grandparent Family history of malignant neoplasm Social History Social History (Updated 10/03/24 @ 14:40 by Brandon Alvarado MD) Social History: Patient lives in her own home. She raised 4 children. Her oldest son at age 39 of unknown causes. Her remaining children are in relatively good health. Her daughter Emily at bedside. The patient's has smoked up to a pack of cigarettes per day but has been down to half a pack per day for ?awhile.? She denies any significant history of alcohol use or illicit substance use. She used to work at [employer]. Code status: DNR/DNI Healthcare power of community development coordinator: Emily Lopez Smoking packs per day: 0.5 Smoking cigarettes per day: 10.0 Years smoked: 60 Smoking pack-years: 30.00 Smoking status: Current every day smoker Alcohol intake: never Substance use: never Substance use type: does not use Do You Feel Safe in your Home?: Yes Lack of Transportation: No Lack of Food: Never True Current Housing: Decline to Answer Concerned About Future Housing: Decline to Answer Difficulty Paying Gas/Electric Bills: Decline to Answer Difficulty Paying for Meds: Decline to Answer Currently Unemployed: Decline to Answer Education: Decline to Answer Difficulty w/ Childcare or Family Care: Decline to Answer Spiritual care concerns: No Meds Home Medications and Allergies Home Medications ?Medication ?Instructions ?Recorded ?Confirmed ?Type amitriptyline 75 mg tablet 75 mg PO . q.h.s. #30 tabs 11/03/23 10/03/24 Rx albuterol sulfate 90 mcg/actuation 2 puff inhalation Q4H PRN 05/19/24 10/03/24 Rx aerosol inhaler shortness of breath or wheezing #8.5 grams alprazolam 0.25 mg tablet 0.25 mg PO BID PRN anxiety #30 tabs 05/19/24 10/03/24 Rx lisinopril 5 mg tablet 5 mg PO DAILY #90 tabs 05/19/24 10/03/24 Rx pantoprazole 40 mg tablet,delayed 40 mg PO QAM #90 tabs 05/19/24 10/03/24 Rx release (Protonix) oxycodone-acetaminophen 10 mg-325 1 tablet PO Q4H PRN pain #180 tabs 08/27/24 10/03/24 Rx mg tablet (Percocet) famotidine 20 mg tablet 20 mg PO BID PRN heartburn #60 tabs 09/01/24 10/03/24 Rx gabapentin 100 mg capsule 100 mg PO QHS #90 caps 09/01/24 10/03/24 Rx linaclotide 145 mcg capsule 145 mcg PO DAILY@0630 90 days #90 09/24/24 10/03/24 Rx (Linzess) caps fluticasone propionate 50 1 spray intranasal BID PRN 10/03/24 10/03/24 History mcg/actuation nasal allergies spray,suspension (Flonase Allergy Relief) Allergies Allergy/AdvReac Type Severity Reaction Status Date / Time No Known Allergies Allergy Mild Verified 10/03/24 10:20 Vital Signs Vital Signs - 24 hr 10/09/24 14:00 10/09/24 16:03 10/09/24 20:00 Temperature 98.0 F Pulse Rate 107 H 126 H Respiratory Rate 16 Blood Pressure 160/95 H Pulse Oximetry 100 Oxygen Delivery Room Air 10/09/24 20:00 10/09/24 22:00 10/10/24 00:00 Temperature 97.4 F L Pulse Rate 102 H 102 H 102 H Respiratory Rate 16 Blood Pressure 158/96 H Pulse Oximetry 94 Oxygen Delivery 10/10/24 04:00 10/10/24 06:00 10/10/24 08:02 Temperature 97.5 F L Pulse Rate 106 H 108 H 106 H Respiratory Rate 16 Blood Pressure 149/87 H Pulse Oximetry 93 Oxygen Delivery Exam Const: General: no acute distress Other: chronically ill appearing HENMT: Face/Nose/Sinus: Normal nares present Eyes: General: appearance normal, both eyes and all related structures Neck: Neck: supple Resp: Auscultation: clear to auscultation bilaterally Cardio: Rate: regular rate Rhythm: regular rhythm GI: Inspection: distended GI Palp: Yes Soft to palpation Other: decrease bowel sound, minimally tender Skin: General skin exam: normal color Neuro: Speech: normal speech Motor exam (neuro): 5/5 motor strength present throughout Extrem: General: normal to inspection Psych: Mental Status: mental status grossly normal Results Labs 10/10/24 06:00 10/10/24 06:00 Labs: Short CBC 10/10/24 Range/Units 06:00 WBC 9.8 (4.5-10.0) K/mm3 Hgb 10.2 L (12.0-15.0) g/dL Hct 32.2 L (37.0-47.0) % Plt Count 546 H (150-375) k/mm3 BMP 10/10/24 06:00 Sodium 136 L Potassium 3.0 L Chloride 105 Carbon Dioxide 28 BUN 4 L Creatinine 0.40 L Glucose 84 Calcium 7.7 L Liver Function 10/10/24 Range/Units 06:00 Total Bilirubin 0.4 (0.2-1.3) mg/dL AST 42 H (14-36) U/L ALT 22 (6-35) U/L Alkaline Phosphatase 155 H (38-126) U/L Albumin 2.4 L (3.5-5.1) g/dL
--- NOTE | 2024-10-10 12:27 | PCSTNOTE ---
PATTERN WEAVER ordered for bedside but did not complete bedside as pt is vomiting most things she eats or drinks and is now too scared to attempt to consume anything. Pt and pt's daughter reported that over the last week or so the pt has been throwing up almost everything, stating that she has been able to keep down very small amounts of ensure. They believe the problem becomes worse when pills are presented and pt can keep down the pills for only a few minutes max before gagging and vomiting. Pt was presented crushed pills in applesauce last night but vomited almost immediately and pt's RN stated that she has not been presented anything by mouth today. Pt's provider stated that she believes the problem is d/t constipation. RN reported that that pt has a bowel obstruction, but nothing that should be causing expulsion of food. PATTERN WEAVER and family discussed obtaining an order for an MBS to identify whether problem is d/t swallowing/dysphagia or GI. PATTERN WEAVER reported recommendations to pt's current provider (Nathalia Pierson).
--- NOTE | 2024-10-10 13:27 | PM.IMPN ---
Progress Note: A&P Assessment and Plan (1) Constipation: Qualifiers: Constipation type: drug induced constipation Qualified Code(s): K59.03 - Drug induced constipation Code(s): K59.00 - Constipation, unspecified Status: Acute Assessment and Plan: Water soluble enema 10/04/24 with multiple BMs Minimize narcotic use Continue Nausea control with Zofran, however this can contribute to worsening constipation. Use with caution Continue to wean Elavil Abdomen firm, distended, tender CT scan of abdomen pelvis show extensive prominent distension of most of the large bowel with an area of apparent luminal narrowing an abrupt caliber change at the distal sigmoid colon, appearance is similar to prior exam, no definite mass lesion seen. Encouraged patient to ambulate in the halls as well as be up out of the bed for minimum of 2 hours with each meal even if she does not eat. She was told that she needs to work with therapy on all of these goals. She has not been up today. continue docusate sodium/Senna continue lactulose b.i.d. 10/08 patient had 6 liquid bowel movements yesterday with a lactulose enema KUB showing persistent gaseous distention of the colon with small distal colonic stool and small amount scattered residual oral contrast material from water-soluble enema from 5 days prior. 10/09 Reconsulting GI for further recommendations 10/10 NPO after midnight NS +40KCL @100ml/hr ordered Continue nausea and pain medications Transition antibiotics to IV GI plans for EGD and sigmoidoscopy with disimpaction tomorrow. (2) Stercoral colitis: Code(s): K52.89 - Other specified noninfective gastroenteritis and colitis Status: Acute Assessment and Plan: see above (3) Hypokalemia: Code(s): E87.6 - Hypokalemia Status: Acute Assessment and Plan: Potassium 3.0 likely decreased from multiple bowel movements 40meq added to maint. IVF continuous tele for now (4) Cavitary lesion of lung: Code(s): J98.4 - Other disorders of lung Status: Acute Assessment and Plan: Chest x-ray showing increased opacities with volume loss in right upper lobe and mild left basilar opacities. CT of the chest shows 3.4 cm right apical cavitary lesion and moderate emphysema Pulmonology consulted and thinks this is likely infection versus malignancy and recommends longer duration antibiotics with Zosyn/Augmentin and Levaquin TB and gold test pending MRSA negative Will need to follow up with pulmonology after discharge Will also need to repeat CT scan in 6 weeks (5) Leukocytosis: Qualifiers: Leukocytosis type: unspecified Qualified Code(s): D72.829 - Elevated white blood cell count, unspecified Code(s): D72.829 - Elevated white blood cell count, unspecified Status: Acute Assessment and Plan: White blood cell count down to 7.4 Changing Augmentin back to Zosyn due to nausea and vomiting. Last CT showed sterile coral colitis, dilation of the appendix likely secondary to stool impaction no fat stranding around the appendix to suggest appendicitis CT scan of abdomen pelvis show extensive prominent distension of most of the large bowel with an area of apparent luminal narrowing an abrupt caliber change at the distal sigmoid colon, appearance is similar to prior exam, no definite mass lesion seen (6) Peripheral vascular disease of lower extremity: Onset Date: ~2007 Code(s): I73.9 - Peripheral vascular disease, unspecified Status: Acute Assessment and Plan: Continue aspirin and Lipitor (7) Tobacco abuse: Code(s): Z72.0 - Tobacco use Status: Acute Assessment and Plan: Smoking cessation information given Time Spent With Patient Time with patient: 25 - 35 minutes Subjective Date/time seen: 10/10/24 13:27 Interval history: Patient still reporting quite a bit of abdominal pain, however abdomen is softer today and not as distended. She reports multiple liquid BMs overnight. Today she is reporting nausea and vomiting. She is unable to hold food or fluid down. GI was consulted. Labs and imaging reviewed. Review of Systems Review of Systems: All systems reviewed & are unremarkable except as noted in HPI and below Constitutional: Constitutional: Reports as per HPI and Reports no additional constitutional complaints Eyes: Eyes: Reports as per HPI and Reports no additional eye complaints ENT: Reports system reviewed and no additional complaints, except as documented and Reports as per HPI Cardiovascular: Cardiovascular: Reports as per HPI and Reports no additional cardiovascular complaints Respiratory: Respiratory: Reports as per HPI and Reports no additional respiratory complaints Gastrointestinal: Gastrointestinal: Reports as per HPI and Reports no additional gastrointestinal complaints Genitourinary: Genitourinary: Reports no additional female genitourinary complaints and Reports as per HPI Musculoskeletal: Musculoskeletal: Reports no additional musculoskeletal complaints and Reports as per HPI Integumentary/Breasts: Skin/Breast: Reports system reviewed and no additional complaints, except as docu and Reports as per HPI Neurologic: Reports system reviewed and no additional complaints, except as documented and Reports as per HPI Psychiatric: Psychiatric: Reports no additional psychiatric complaints and Reports as per HPI Exam Narrative: General: In no acute distress Cardiac: Normal S1 and S2. RRR, No murmur, gallops or friction rubs, peripheral pulses intact. Respiratory: Lungs clear to auscultation, no adventitious lung sounds, currently on room air Gastrointestinal: soft, not as distended, tender, hypoactive bowel sounds. Still reported liquid BM's and is passing gas. : voiding without difficulty. Neuro: Alert and oriented x4 Objective Data Vital Signs Vital Signs: Vital Signs - 24 hr 10/09/24 14:00 10/09/24 16:03 10/09/24 20:00 Temperature 98.0 F Pulse Rate 107 H 126 H Respiratory Rate 16 Blood Pressure 160/95 H Pulse Oximetry 100 Oxygen Delivery Room Air 10/09/24 20:00 10/09/24 22:00 10/10/24 00:00 Temperature 97.4 F L Pulse Rate 102 H 102 H 102 H Respiratory Rate 16 Blood Pressure 158/96 H Pulse Oximetry 94 Oxygen Delivery 10/10/24 04:00 10/10/24 06:00 10/10/24 08:02 Temperature 97.5 F L Pulse Rate 106 H 108 H 106 H Respiratory Rate 16 Blood Pressure 149/87 H Pulse Oximetry 93 Oxygen Delivery Intake/Output Intake/Output: Intake & Output 10/07/24 10/08/24 10/09/24 10/10/24 23:59 23:59 23:59 23:59 Intake Total 2595 1426.3 1750 200 Balance 2595 1426.3 1750 200 Meds/Results Medications: Active Medications Generic Name Dose Route Start Last Admin Trade Name Freq PRN Reason Stop Dose Admin Acetaminophen 650 mg 10/03/24 14:52 10/09/24 08:05 Acetaminophen 325 Mg Tablet PO 650 mg Q6H PRN Administration Mild Pain (1-3) or Fever Albuterol 2 puff 10/03/24 14:50 Albuterol Sulfate (*Sp) Aerosol 1 Puff INHALATION Q4H PRN shortness of breath or wheezing Alprazolam 0.25 mg 10/03/24 14:50 10/09/24 20:11 Alprazolam (*Crx) 0.25 Mg Tablet PO 0.25 mg BID PRN Administration anxiety Amitriptyline HCl 50 mg 10/03/24 21:00 10/09/24 20:11 Amitriptyline Hcl 25 Mg Tablet PO 50 mg HS STEVIE Administration Amoxicillin/Clavulanate Potassium 1 tablet 10/09/24 18:00 10/10/24 05:27 Amoxicillin/Clavulanate K 875-125 Mg Tab PO Not Given Q12H [facility] Aspirin 81 mg 10/04/24 11:30 10/10/24 09:55 Aspirin 81 Mg Chewable Tablet PO Not Given DAILY@0800 [facility] Atorvastatin Calcium 40 mg 10/04/24 11:30 10/10/24 09:55 Atorvastatin 40 Mg Tablet PO Not Given DAILY [facility] Bisacodyl 20 mg 10/10/24 17:00 Bisacodyl 5 Mg Tablet Ec PO 10/10/24 17:01 ONCE ONE Famotidine 20 mg 10/03/24 14:50 10/05/24 09:39 Famotidine 20 Mg Tablet PO 20 mg BID PRN Administration heartburn Fluticasone Propionate 1 spray 10/03/24 14:50 Fluticasone Propionate 0.05% Na Spr 16 Gm Btl (*Bkc) NASAL BID PRN allergies Gabapentin 100 mg 10/03/24 21:00 10/09/24 20:11 Gabapentin 100 Mg Capsule PO 100 mg QHS [facility] Administration Lactulose 20 gm 10/04/24 13:00 10/10/24 13:05 Lactulose 20 Gm/30 Ml Udc PO Not Given TID [facility] Levofloxacin 750 mg 10/08/24 14:00 10/09/24 13:34 Levofloxacin 750 Mg Tablet PO 10/13/24 14:01 750 mg DAILY@1400 [facility] Administration Ondansetron HCl 4 mg 10/06/24 10:51 10/10/24 08:29 Ondansetron Inj 4 Mg/2 Ml Vial IV PUSH 4 mg Q4H PRN Administration Nausea And Vomiting Oxycodone/Acetaminophen 1 tab 10/03/24 14:50 10/10/24 11:51 Oxycodone/Acetaminophen (*Crx) 10-325 Mg Tablet PO 1 tab Q6H PRN Administration Pain Rated 6 or Greater Pantoprazole Sodium 40 mg 10/04/24 09:00 10/10/24 09:55 Pantoprazole 40 Mg Tablet PO Not Given QAM [facility] Potassium Chloride 40 meq 10/07/24 12:35 10/10/24 09:55 Potassium Chloride 20 Meq Packet (For Liquid) PO Not Given DAILY STEVIE Potassium Chloride 40 meq 10/10/24 16:00 Potassium Chloride 20 Meq Er Tablet PO 10/10/24 16:01 ONCE ONE Senna/Docusate Sodium 1 tab 10/08/24 13:00 10/10/24 09:55 Senna/Docusate Sodium Tablet PO Not Given Q12HR STEVIE Simethicone 250 mg 10/07/24 17:00 10/10/24 13:05 Simethicone 125 Mg Chew Tab PO Not Given QID [facility] Radiology Results: ITS Impressions Chest X-Ray 10/04/24 09:08 IMPRESSION: 1. Increasing opacities with some associated volume loss in the right upper lung zone consistent with atelectasis and could not exclude superimposed pneumonia or malignancy. Recommend either further evaluation with chest CT or short interval follow-up chest radiograph to document resolution. 2. Mild left basilar opacities and favor atelectasis over pneumonia. 3. Emphysema. Enema w/Water Soluble 10/04/24 10:10 IMPRESSION: 1. Large amount of stool scattered throughout the colon. No fixed stricture or mucosal irregularity to suggest malignancy. Chest CT 10/04/24 15:05 IMPRESSION: 3.4 cm right apical cavitary lesion with irregular wall thickening. Differential includes infection, malignancy, noninfectious granuloma, and pulmonary infarct with. Moderate emphysema. Small left and trace right pleural effusions. Abdomen/Pelvis CT 10/06/24 13:40 Impression: Extensive, prominent distention of most of the large bowel with an area of apparent luminal narrowing and abrupt caliber change at the distal sigmoid colon/proximal rectum, as detailed above. Appearance is similar to prior exam. No definite mass lesion seen. This could reflect a colonic stricture versus the possibility of a subtle infiltrating neoplasm, although again, no definite mass seen. Small to moderate left pleural effusion and small right pleural effusion. 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 Stable bilateral adrenal nodules, indeterminate. Spinal compression fractures, as above. Abdomen X-Ray 10/09/24 09:59 IMPRESSION: 1. Persistent gaseous distention of the colon with small distal colonic stool and small amount scattered residual oral contrast material from water-soluble enema from 5 days prior. Labs Labs: Laboratory Results - last 24 hr 10/10/24 06:00 WBC 9.8 RBC 3.37 L Hgb 10.2 L Hct 32.2 L MCV 95.5 MCH 30.3 MCHC 31.7 L RDW 13.4 Plt Count 546 H MPV 8.6 Immature Gran % (Auto) 0.9 H Neut % (Auto) 77.3 H Lymph % (Auto) 10.2 L [place] % (Auto) 11.3 H Eos % (Auto) 0.1 Baso % (Auto) 0.2 Lymph # (Auto) 1.00 [place] # (Auto) 1.1 H Eos # (Auto) 0.0 Baso # (Auto) 0.0 Abs Immat Gran (auto) 0.09 H Absolute Neuts (auto) 7.6 H Absolute Nucleated RBC 0.000 Nucleated RBC % 0.0 Sodium 136 L Potassium 3.0 L Chloride 105 Carbon Dioxide 28 Anion Gap 3 L BUN 4 L Creatinine 0.40 L Estim Creat Clear Calc 69 Estimated GFR > 60 Glucose 84 Calcium 7.7 L Total Bilirubin 0.4 AST 42 H ALT 22 Alkaline Phosphatase 155 H Total Protein 6.0 L Albumin 2.4 L Quality VTE Prophylaxis VTE prophylaxis: mechanical ordered
[2024-10-10] MEDS: MORPHINE SULFATE (*CRX) 2 MG/ML INJ IV PUSH (14:11)
[2024-10-10] MEDS: KCL 40 MEQ/0.9% SOD CHL 1,000 ML 50 ML IV CONT (14:30)
[2024-10-10] MEDS: levoFLOXacin 750 MG/D5W 150 ML 750 MG/150 ML BAG 100 MG IVPB (14:31)
[2024-10-10] MEDS: KETOROLAC 30 MG/ML VIAL (*BKC) IV PUSH (18:44)
[2024-10-10] MEDS: PIPERACILLN/TAZ 3.375GM/NS50ML 3.375 GM/50 ML BAG IVPB (18:44)
[2024-10-11] VITALS (15 sets, daily range): BP systolic 75–158; BP diastolic 40–89; PULSE 94–120; RESP 18–29; TEMP 35.9–37.3; O2SAT 92–96
[2024-10-11] MEDS: PIPERACILLN/TAZ 3.375GM/NS50ML 3.375 GM/50 ML BAG IVPB ×4 (00:06→19:00)
[2024-10-11] MEDS: KCL 40 MEQ/0.9% SOD CHL 1,000 ML 50 ML IV CONT (00:12)
[2024-10-11] MEDS: ALPRAZolam (*CRX) 0.25 MG TABLET PO (00:32)
[2024-10-11] MEDS: HYDROmorphone HCL INJ (*CRX) 1 MG/ML SYR IV PUSH (03:38)
[2024-10-11] MEDS: ONDANSETRON INJ 4 MG/2 ML VIAL IV PUSH (03:41)
[2024-10-11] MEDS: KETOROLAC 30 MG/ML VIAL (*BKC) IV PUSH ×4 (05:42→19:00)
[2024-10-11 07:04] LABS: Basophils Absolute Auto 0.1 K/mm3 (0.0-0.1); Basophils Percent Auto 0.9 % (0.2-1.2); Hematocrit 37.8 % (37.0-47.0); Hemoglobin 11.8 g/dL (12.0-15.0); Immature Granulocyte Absolute 0.04 K/mm3 (0.00-0.031); Immature Granulocyte Percent A 0.6 % (0-0.5); Lymphocytes Absolute Auto 0.35 K/mm3 (0.9-3.2); Lymphocytes Percent Auto 5.4 % (18.3-44.2); Mean Corpuscular HGB Conc 31.2 g/dl (32-36); Mean Corpuscular Hemoglobin 30.1 pg (26-34); Mean Corpuscular Volume 96.4 fl (80-100); Mean Platelet Volume 8.9 fl (7.4-10.4); Monocytes Absolute Auto 0.1 K/mm3 (0.1-0.6); Monocytes Percent Auto 2.1 % (2.6-8.5); Neutrophils Absolute Auto 5.9 K/mm3 (1.3-6.7); Platelet Count Result 586 k/mm3 (150-375); Red Blood Count 3.92 M/mm3 (4.2-5.4); Red Cell Distribution Width 13.7 % (11.5-14.5); White Blood Count 6.5 K/mm3 (4.5-10.0)
[2024-10-11 07:22] LABS: Alanine Aminotransferase 19 U/L (6-35); Albumin Level 2.2 g/dL (3.5-5.1); Alkaline Phosphatase 134 U/L (38-126); Anion Gap 7 mmol/L (4-12); Aspartate Amino Transferase 37 U/L (14-36); Bilirubin,Total 0.4 mg/dL (0.2-1.3); Blood Urea Nitrogen 10 mg/dL (7-17); Calcium 7.4 mg/dL (8.4-10.2); Carbon Dioxide 25 mmol/L (22-30); Chloride 108 mmol/L (98-107); Estimated CRCL calculation 37 ml/min; Estimated Glomerular Filt Rate > 60; Glucose 54 mg/dL (65-110); Potassium 4.3 mmol/L (3.4-5.0); Sodium 140 mmol/L (137-145)
[2024-10-11 07:53] LABS: Glucose Point of Care 110 mg/dl (65-105)
--- NOTE | 2024-10-11 08:47 | P.PNIM_ITS ---
Progress Note: A&P Assessment and Plan (1) Constipation: Qualifiers: Constipation type: drug induced constipation Qualified Code(s): K59.03 - Drug induced constipation Code(s): K59.00 - Constipation, unspecified Status: Acute Assessment and Plan: * Water soluble enema 10/04/24 with multiple BMs * Minimize narcotic use * Continue Nausea control with Zofran, however this can contribute to worsening constipation. Use with caution * Continue to wean Elavil * Abdomen firm, distended, tender * CT scan of abdomen pelvis show extensive prominent distension of most of the large bowel with an area of apparent luminal narrowing an abrupt caliber change at the distal sigmoid colon, appearance is similar to prior exam, no definite mass lesion seen. * Encouraged patient to ambulate in the halls as well as be up out of the bed for minimum of 2 hours with each meal even if she does not eat. She was told that she needs to work with therapy on all of these goals. She has not been up today. * continue docusate sodium/Senna * continue lactulose b.i.d. 10/08 * patient had 6 liquid bowel movements yesterday with a lactulose enema * KUB showing persistent gaseous distention of the colon with small distal colonic stool and small amount scattered residual oral contrast material from water-soluble enema from 5 days prior. 10/09 * Reconsulting GI for further recommendations 10/10 * NPO after midnight * NS +40KCL @100ml/hr ordered * Continue nausea and pain medications * Transition antibiotics to IV * GI plans for EGD and sigmoidoscopy with disimpaction tomorrow. 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 IVF yesterday * Will continue to monitor * continuous tele for now (4) Cavitary lesion of lung: Code(s): J98.4 - Other disorders of lung Status: Acute Assessment and Plan: * Chest x-ray showing increased opacities with volume loss in right upper lobe and mild left basilar opacities. * CT of the chest shows 3.4 cm right apical cavitary lesion and moderate emphysema * Pulmonology consulted and thinks this is likely infection versus malignancy and recommends longer duration antibiotics with Zosyn/Augmentin and Levaquin * TB and gold test pending * MRSA negative * Will need to follow up with pulmonology after discharge * Will also need to repeat CT scan in 6 weeks (5) Leukocytosis: Qualifiers: Leukocytosis type: unspecified Qualified Code(s): D72.829 - Elevated white blood cell count, unspecified Code(s): D72.829 - Elevated white blood cell count, unspecified Status: Acute Assessment and Plan: * White blood cell count down to 6.5 * Changing Augmentin back to Zosyn due to nausea and vomiting. 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, dilation of the appendix likely secondary to stool impaction no fat stranding around the appendix to suggest appendicitis * CT scan of abdomen pelvis show extensive prominent distension of most of the large bowel with an area of apparent luminal narrowing an abrupt caliber change at the distal sigmoid colon, appearance is similar to prior exam, no de finite mass lesion seen (6) Peripheral vascular disease of lower extremity: Onset Date: ~2007 Code(s): I73.9 - Peripheral vascular disease, unspecified Status: Acute Assessment and Plan: * Continue aspirin and Lipitor (7) Tobacco abuse: Code(s): Z72.0 - Tobacco use Status: Acute Assessment and Plan: * Smoking cessation information given Time Spent With Patient Time with patient: Greater than 35 minutes Subjective Date/time seen: 10/11/24 08:47 Interval history: Patient still reporting 10/10 abdominal pain. Labs, EGD, and sigmoidoscopy reports reviewed. Review of Systems Review of Systems: All systems reviewed & are unremarkable except as noted in HPI and below Constitutional: Constitutional: Reports as per HPI and Reports no additional constitutional complaints Eyes: Eyes: Reports as per HPI and Reports no additional eye complaints ENT: Reports system reviewed and no additional complaints, except as documented and Reports as per HPI Cardiovascular: Cardiovascular: Reports as per HPI and Reports no additional cardiovascular complaints Respiratory: Respiratory: Reports as per HPI and Reports no additional respiratory complaints Gastrointestinal: Gastrointestinal: Reports as per HPI and Reports no additional gastrointestinal complaints Genitourinary: Genitourinary: Reports no additional female genitourinary complaints and Reports as per HPI Musculoskeletal: Musculoskeletal: Reports no additional musculoskeletal complaints and Reports as per HPI Integumentary/Breasts: Skin/Breast: Reports system reviewed and no additional complaints, except as docu and Reports as per HPI Neurologic: Reports system reviewed and no additional complaints, except as documented and Reports as per HPI Psychiatric: Psychiatric: Reports no additional psychiatric complaints and Reports as per HPI Exam Narrative: Cardiac: Normal S1 and S2. RRR, No murmur, gallops or friction rubs, peripheral pulses intact. Respiratory: Lungs clear to auscultation, no adventitious lung sounds, currently on room air Gastrointestinal: soft, not as distended, very tender, hypoactive bowel sounds. : voiding without difficulty. Neuro: Alert and oriented x4 Objective Data Vital Signs Vital Signs: Vital Signs - 24 hr 10/10/24 12:02 10/10/24 14:00 10/10/24 16:03 Temperature 97.5 F L Pulse Rate 113 H 107 H 112 H Respiratory Rate 18 Blood Pressure 144/81 H Pulse Oximetry 96 10/10/24 16:20 10/10/24 20:00 10/10/24 20:44 Temperature 98.5 F Pulse Rate 114 H 114 H 113 H Respiratory Rate 20 Blood Pressure 147/74 H 117/70 Pulse Oximetry 95 100 10/11/24 00:00 10/11/24 04:00 10/11/24 05:33 Temperature 98.4 F Pulse Rate 120 H 113 H 111 H Respiratory Rate 18 Blood Pressure 100/74 Pulse Oximetry 94 Intake/Output Intake/Output: Intake & Output 10/08/24 10/09/24 10/10/24 10/11/24 23:59 23:59 23:59 23:59 Intake Total 1426.3 1750 920 635 Balance 1426.3 1750 920 635 Meds/Results Medications: Active Medications Generic Name Dose Route Start Last Admin Trade Name Freq PRN Reason Stop Dose Admin Acetaminophen 650 mg 10/03/24 14:52 10/09/24 08:05 Acetaminophen 325 Mg Tablet PO 650 mg Q6H PRN Administration Mild Pain (1-3) or Fever Albuterol 2 puff 10/03/24 14:50 Albuterol Sulfate (*Sp) Aerosol 1 Puff INHALATION Q4H PRN shortness of breath or wheezing Alprazolam 0.25 mg 10/03/24 14:50 10/11/24 00:32 Alprazolam (*Crx) 0.25 Mg Tablet PO 0.25 mg BID PRN Administration anxiety Amitriptyline HCl 50 mg 10/03/24 21:00 10/10/24 22:55 Amitriptyline Hcl 25 Mg Tablet PO Not Given HS STEVIE Amoxicillin/Clavulanate Potassium 1 tablet 10/09/24 18:00 10/10/24 05:27 Amoxicillin/Clavulanate K 875-125 Mg Tab PO Not Given Q12H STEVIE Aspirin 81 mg 10/04/24 11:30 10/10/24 09:55 Aspirin 81 Mg Chewable Tablet PO Not Given DAILY@0800 STEVIE Atorvastatin Calcium 40 mg 10/04/24 11:30 10/10/24 09:55 Atorvastatin 40 Mg Tablet PO Not Given DAILY STEVIE Dextrose 12.5 gm 10/11/24 07:41 Dextrose 50% 25 Gm/50 Ml Syringe IV PUSH PRN PRN Hypoglycemia Protocol Famotidine 20 mg 10/03/24 14:50 10/05/24 09:39 Famotidine 20 Mg Tablet PO 20 mg BID PRN Administration heartburn Fluticasone Propionate 1 spray 10/03/24 14:50 Fluticasone Propionate 0.05% Na Spr 16 Gm Btl (*Bkc) NASAL BID PRN allergies Gabapentin 100 mg 10/03/24 21:00 10/10/24 22:56 Gabapentin 100 Mg Capsule PO Not Given QHS STEVIE Glucagon 1 mg 10/11/24 07:41 Glucagon For Inj 1 Mg Vial IM PRN PRN Hypoglycemia Protocol Glucose 15 gm 10/11/24 07:41 Glucose Oral Gel 15 Gm Of Glucse In 37.5 Gm Tube PO PRN PRN Hypoglycemia Protocol Levofloxacin/Dextrose 750 mg in 150 mls @ 100 mls/hr 10/10/24 14:00 10/10/24 16:01 Levaquin 750 Mg/D5w 150 Ml IVPB Infused Q24H STEVIE Infusion Piperacillin/Tazobactam/Dextrose 3.375 gm in 50 mls @ 100 mls/hr 10/10/24 15:30 10/11/24 05:42 Zosyn 3.375 Gm/Ns 50 Ml IVPB 100 mls/hr Q6HR STEVIE Administration Dextrose 1,000 mls @ 100 mls/hr 10/11/24 07:41 Dextrose 5% 1,000 Ml IVPB PRN PRN Hypoglycemia Protocol Potassium Chloride/Dextrose/Sod Cl 1,000 mls @ 100 mls/hr 10/11/24 08:45 Kcl 40 Meq/D5ns IV CONT .Q10H STEVIE Ketorolac Tromethamine 30 mg 10/10/24 16:26 10/11/24 05:42 Ketorolac 30 Mg/Ml Vial (*Bkc) IV PUSH 30 mg Q6H PRN Administration Pain 4-5 Lactulose 20 gm 10/04/24 13:00 10/10/24 13:05 Lactulose 20 Gm/30 Ml Udc PO Not Given TID [facility] Levofloxacin 750 mg 10/08/24 14:00 10/09/24 13:34 Levofloxacin 750 Mg Tablet PO 750 mg DAILY@1400 [facility] Administration Ondansetron HCl 4 mg 10/06/24 10:51 10/11/24 03:41 Ondansetron Inj 4 Mg/2 Ml Vial IV PUSH 4 mg Q4H PRN Administration Nausea And Vomiting Oxycodone/Acetaminophen 1 tab 10/03/24 14:50 10/10/24 11:51 Oxycodone/Acetaminophen (*Crx) 10-325 Mg Tablet PO 1 tab Q6H PRN Administration Pain Rated 6 or Greater Pantoprazole Sodium 40 mg 10/04/24 09:00 10/10/24 09:55 Pantoprazole 40 Mg Tablet PO Not Given QAM [facility] Potassium Chloride 40 meq 10/07/24 12:35 10/10/24 09:55 Potassium Chloride 20 Meq Packet (For Liquid) PO Not Given DAILY [facility] Senna/Docusate Sodium 1 tab 10/08/24 13:00 10/10/24 22:56 Senna/Docusate Sodium Tablet PO Not Given Q12HR [facility] Simethicone 250 mg 10/07/24 17:00 10/10/24 13:05 Simethicone 125 Mg Chew Tab PO Not Given QID [facility] Radiology Results: ITS Impressions Chest X-Ray 10/04/24 09:08 IMPRESSION: 1. Increasing opacities with some associated volume loss in the right upper lung zone consistent with atelectasis and could not exclude superimposed pneumonia or malignancy. Recommend either further evaluation with chest CT or short interval follow-up chest radiograph to document resolution. 2. Mild left basilar opacities and favor atelectasis over pneumonia. 3. Emphysema. Enema w/Water Soluble 10/04/24 10:10 IMPRESSION: 1. Large amount of stool scattered throughout the colon. No fixed stricture or mucosal irregularity to suggest malignancy. Chest CT 10/04/24 15:05 IMPRESSION: 3.4 cm right apical cavitary lesion with irregular wall thickening. Differential includes infection, malignancy, noninfectious granuloma, and pulmonary infarct with. Moderate emphysema. Small left and trace right pleural effusions. Abdomen/Pelvis CT 10/06/24 13:40 Impression: Extensive, prominent distention of most of the large bowel with an area of apparent luminal narrowing and abrupt caliber change at the distal sigmoid colon/proximal rectum, as detailed above. Appearance is similar to prior exam. No definite mass lesion seen. This could reflect a colonic stricture versus the possibility of a subtle infiltrating neoplasm, although again, no definite mass seen. Small to moderate left pleural effusion and small right pleural effusion. 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 Stable bilateral adrenal nodules, indeterminate. Spinal compression fractures, as above. Abdomen X-Ray 10/09/24 09:59 IMPRESSION: 1. Persistent gaseous distention of the colon with small distal colonic stool and small amount scattered residual oral contrast material from water-soluble enema from 5 days prior. Labs Labs: Laboratory Results - last 24 hr 10/11/24 10/11/24 06:46 07:51 WBC 6.5 RBC 3.92 L Hgb 11.8 L Hct 37.8 MCV 96.4 MCH 30.1 MCHC 31.2 L RDW 13.7 Plt Count 586 H MPV 8.9 Immature Gran % (Auto) 0.6 H Neut % (Auto) 91.0 H Lymph % (Auto) 5.4 L Kane % (Auto) 2.1 L Eos % (Auto) 0.0 Baso % (Auto) 0.9 Lymph # (Auto) 0.35 L Kane # (Auto) 0.1 Eos # (Auto) 0.0 Baso # (Auto) 0.1 Abs Immat Gran (auto) 0.04 H Absolute Neuts (auto) 5.9 Absolute Nucleated RBC 0.000 Nucleated RBC % 0.0 Sodium 140 Potassium 4.3 Chloride 108 H Carbon Dioxide 25 Anion Gap 7 BUN 10 D Creatinine 0.80 Estim Creat Clear Calc 37 Estimated GFR > 60 Glucose 54 L* POC Capillary Glucose 110 H Calcium 7.4 L Total Bilirubin 0.4 AST 37 H ALT 19 Alkaline Phosphatase 134 H Total Protein 5.0 L Albumin 2.2 L Quality VTE Prophylaxis VTE prophylaxis: mechanical ordered
[2024-10-11] MEDS: DEXTROSE 5% 1,000 ML 1,000 ML 100 ML IVPB (08:54)
[2024-10-11] MEDS: DEXTROSE 50% 25 GM/50 ML SYRINGE IV PUSH (08:55)
--- NOTE | 2024-10-11 10:31 | PCOTNOTE ---
Per RN, Patient is going for an EGD/Colonoscopy
[2024-10-11] MEDS: HYDROmorphone HCL INJ (*CRX) 1 MG/ML SYR 0.5 MG IV PUSH ×3 (11:23→20:04)
--- NOTE | 2024-10-11 11:34 | PCNFU ---
Nutrition Follow-Up Complete: Suboptimal po intake related to appetite and altered GI function as evidenced by pt report Goal:PO intake improved to greater than 50% of meals and supplements Pt not meeting goal, NPO today for further testing Pt current nutrition is NPO. Nutrition recommendation: monitor for results of tests Last recorded weight is 43.9 kg. Bowel Motility: +BM 10/11 Labs Reviewed: Hgb:11.8, Alb:2.2, glu:110 Meds Noted: lactulose, KCL, senna Skin: WNL Additional Notes: Pt has been unable to keep food or liquid down. NPO today for testing: MBS, EGD, sigmoidoscopy. Nursing reports pt refusing even to take meds via PO at this time. Monitor intake, wt, labs. Follow up in 1 day
[2024-10-11 11:42] LABS: Glucose Point of Care 103 mg/dl (65-105)
--- NOTE | 2024-10-11 12:04 | PCSTNOTE ---
Attempted to complete MBS on this date; noted that pt is NPO until after EGD which will be completed at 3pm this afternoon. MBS will therefore be completed tomorrow.
[2024-10-11 12:33] LABS: Hemoglobin A1C 5.3 % (<5.7)
[2024-10-11] MEDS: LACTATED RINGERS 1,000 ML 150 ML IV CONT (13:05)
--- NOTE | 2024-10-11 13:11 | P.PNAN_ITS ---
Anes - Initial Pre Proc Eval Procedure: Operation Date: 10/11/24 15:30 Proposed Procedures p Esophagogastroduodenoscopy & Sigmoidoscopy - Marcel Edmond MD Date/Time: 10/11/24 13:11 Surgeon: Nathalia Pierson APRN Pre Op Diagnosis: Narcotic Bowel Syndrome Patient Data Age: 74 Gender: F Height: 1.6 m Weight: 43.9 kg Last Vital Signs Temp 36.6 C 10/11/24 12:58 Pulse 113 H 10/11/24 12:58 Resp 22 H 10/11/24 12:58 BP 84/58 L 10/11/24 12:58 Pulse Ox 94 10/11/24 12:58 O2 Del Method Room Air 10/11/24 12:58 FiO2 21 10/08/24 08:00 Allergies Allergy/AdvReac Type Severity Reaction Status Date / Time No Known Allergies Allergy Mild Verified 10/03/24 10:20 Home Medications ?Medication ?Instructions ?Recorded ?Confirmed ?Type amitriptyline 75 mg tablet 75 mg PO . q.h.s. #30 tabs 11/03/23 10/03/24 Rx albuterol sulfate 90 mcg/actuation 2 puff inhalation Q4H PRN 05/19/24 10/03/24 Rx aerosol inhaler shortness of breath or wheezing #8.5 grams alprazolam 0.25 mg tablet 0.25 mg PO BID PRN anxiety #30 tabs 05/19/24 10/03/24 Rx lisinopril 5 mg tablet 5 mg PO DAILY #90 tabs 05/19/24 10/03/24 Rx pantoprazole 40 mg tablet,delayed 40 mg PO QAM #90 tabs 05/19/24 10/03/24 Rx release (Protonix) oxycodone-acetaminophen 10 mg-325 1 tablet PO Q4H PRN pain #180 tabs 08/27/24 10/03/24 Rx mg tablet (Percocet) famotidine 20 mg tablet 20 mg PO BID PRN heartburn #60 tabs 09/01/24 10/03/24 Rx gabapentin 100 mg capsule 100 mg PO QHS #90 caps 09/01/24 10/03/24 Rx linaclotide 145 mcg capsule 145 mcg PO DAILY@0630 90 days #90 09/24/24 10/03/24 Rx (Linzess) caps fluticasone propionate 50 1 spray intranasal BID PRN 10/03/24 10/03/24 History mcg/actuation nasal allergies spray,suspension (Flonase Allergy Relief) Laboratory Tests 10/11/24 10/11/24 10/11/24 06:41 06:46 07:51 WBC 6.5 K/mm3 (4.5-10.0) RBC 3.92 L M/mm3 (4.2-5.4) Hgb 11.8 L g/dL (12.0-15.0) Hct 37.8 % (37.0-47.0) MCV 96.4 fl (80-100) MCH 30.1 pg (26-34) MCHC 31.2 L g/dl (32-36) RDW 13.7 % (11.5-14.5) Plt Count 586 H k/mm3 (150-375) MPV 8.9 fl (7.4-10.4) Immature Gran % (Auto) 0.6 H % (0-0.5) Neut % (Auto) 91.0 H % (45.5-73.1) Lymph % (Auto) 5.4 L % (18.3-44.2) Canadian % (Auto) 2.1 L % (2.6-8.5) Eos % (Auto) 0.0 % (0-4.4) Baso % (Auto) 0.9 % (0.2-1.2) Lymph # (Auto) 0.35 L K/mm3 (0.9-3.2) Canadian # (Auto) 0.1 K/mm3 (0.1-0.6) Eos # (Auto) 0.0 K/mm3 (0-0.3) Baso # (Auto) 0.1 K/mm3 (0.0-0.1) Abs Immat Gran (auto) 0.04 H K/mm3 (0.00-0.031) Absolute Neuts (auto) 5.9 K/mm3 (1.3-6.7) Absolute Nucleated RBC 0.000 K/mm3 (0.0-0.012) Nucleated RBC % 0.0 % (0.0-0.2) Sodium 140 mmol/L (137-145) Potassium 4.3 mmol/L (3.4-5.0) Chloride 108 H mmol/L (98-107) Carbon Dioxide 25 mmol/L (22-30) Anion Gap 7 mmol/L (4-12) BUN 10 D mg/dL (7-17) Creatinine 0.80 mg/dL (0.7-1.0) Estim Creat Clear Calc 37 ml/min Estimated GFR > 60 (59 - ) Glucose 54 L* mg/dL (65-110) POC Capillary Glucose 110 H mg/dl (65-105) Hemoglobin A1c 5.3 % (<5.7) Calcium 7.4 L mg/dL (8.4-10.2) Total Bilirubin 0.4 mg/dL (0.2-1.3) AST 37 H U/L (14-36) ALT 19 U/L (6-35) Alkaline Phosphatase 134 H U/L (38-126) Total Protein 5.0 L g/dL (6.3-8.2) Albumin 2.2 L g/dL (3.5-5.1) 10/11/24 11:39 WBC RBC Hgb Hct MCV MCH MCHC RDW Plt Count MPV Immature Gran % (Auto) Neut % (Auto) Lymph % (Auto) Canadian % (Auto) Eos % (Auto) Baso % (Auto) Lymph # (Auto) Canadian # (Auto) Eos # (Auto) Baso # (Auto) Abs Immat Gran (auto) Absolute Neuts (auto) Absolute Nucleated RBC Nucleated RBC % Sodium Potassium Chloride Carbon Dioxide Anion Gap BUN Creatinine Estim Creat Clear Calc Estimated GFR Glucose POC Capillary Glucose 103 mg/dl (65-105) Hemoglobin A1c Calcium Total Bilirubin AST ALT Alkaline Phosphatase Total Protein Albumin Patient hx anesthesia problems: none Family hx anesthesia problems: none Results Review: All pre-operative results and documents have been reviewed as part of the pre- operative evaluation. FOR[facility], [facility] Past Medical History Medical History Coffee ground emesis Nausea and vomiting in adult Abnormal CT scan, colon Essential hypertension Vertigo Sinusitis Sinus arrhythmia (~12/03/23) no atrial fibrillation on EKG 12/03/2023. Sinus rhythm with sinus arrhythmia. Arrhythmia (~12/03/23) irregularly irregular rhythm on 12/03/2023. Peripheral vascular disease of lower extremity (~2007) history of stents distal aorta to the common iliac bilaterally 11/09/2007. Anemia hemoglobin 11.4 on 04/04/2022. Hemoglobin 11.3 on 04/15/2022. Vitamin B12 was 1200 with folic acid greater than 24 and iron 47. hemoglobin 11.9 with iron 43 on 12/03/2023. Abdominal aortic atherosclerosis (~2021) severe proximal aortic atherosclerotic disease with stenosis on CT of the abdomen ER 04/15/2022. UTI (urinary tract infection) Underweight due to inadequate caloric intake Rhinitis Insomnia GERD (gastroesophageal reflux disease) Microscopic hematuria Mixed hyperlipidemia Total cholesterol 166, HDL 40, triglycerides 146 and LDL 101 with AST 19 and ALT 13 on 04/04/2022 with thyroid function normal with TSH 1.98 and free T4 1.3. Total cholesterol 186 with triglycerides 146 and HDL 40 on 12/03/2023. Abnormal fasting glucose Fasting glucose 102 with hemoglobin A1c 4.8 on 04/04/2022. Fasting glucose 104 on 12/03/2023. Age-related osteoporosis without current pathological fracture Chronic bilateral low back pain Chronic depression Chronic obstructive pulmonary disease, unspecified Surgical History Surgical History S/P peripheral artery angioplasty with stent placement The patient had attempt at stent placement our facility in 2006 but was unsuccessful. Evidently patient later had a secondary procedure at another facility but details are not available Hx of cholecystectomy Family History Family History Father Family history of cardiovascular disease, Onset Age: 70 Mother Family history of malignant neoplasm, Onset Age: 60 Grandparent Family history of malignant neoplasm Social History Social History Social History: Patient lives in her own home. She raised 4 children. Her oldest son at age 39 of unknown causes. Her remaining children are in relatively good health. Her daughter Emily at bedside. The patient's has smoked up to a pack of cigarettes per day but has been down to half a pack per day for ?awhile.? She denies any significant history of alcohol use or illicit substance use. She used to work at [employer]. Code status: DNR/DNI Healthcare power of environmental science technician: Emily Lopez Smoking packs per day: 0.5 Smoking cigarettes per day: 10.0 Years smoked: 60 Smoking pack-years: 30.00 Smoking status: Current every day smoker Alcohol intake: never Substance use: never Substance use type: does not use Do You Feel Safe in your Home?: Yes Lack of Transportation: No Lack of Food: Never True Current Housing: Decline to Answer Concerned About Future Housing: Decline to Answer Difficulty Paying Gas/Electric Bills: Decline to Answer Difficulty Paying for Meds: Decline to Answer Currently Unemployed: Decline to Answer Education: Decline to Answer Difficulty w/ Childcare or Family Care: Decline to Answer Spiritual care concerns: No Anes - Eval Final PreProcedure Day of Procedure 10/11/24 13:11 Patient weight: thin (underweight) Heart: regular rate and rhythm Lungs: clear to auscultation Airway: Mallampati scale class II Neurological: alert and oriented Last oral intake: >/= 8 hours ASA classification: IV Emergent: no Anesthetic plan: proceed Anesthesia type and monitoring: general GIVS and standard monitoring Results Review: All pre-operative results and documents have been reviewed as part of the pre- operative evaluation. Informed Consent: The patient's anesthetic plan and its attendant risks and benefits were discussed with the patient/family/POA. Questions were solicited and answers provided to the satisfaction of the patient/family/POA.
--- NOTE | 2024-10-11 13:11 | PCPTNOTE ---
Attempted to see patient for PT, however patient was out of the room for procedure and unable to be seen for PT this date.
[2024-10-11 13:15] LABS: Glucose Point of Care 108 mg/dl (65-105)
--- NOTE | 2024-10-11 14:24 | SUR.OPER ---
EGD end time 1413, sigmoidoscopy start time 1423
--- NOTE | 2024-10-11 14:40 | WPDGIPROGNO ---
Progress Note: A&P Assessment and Plan (1) GERD (gastroesophageal reflux disease): Qualifiers: Esophagitis presence: without esophagitis Qualified Code(s): K21.9 - Gastro-esophageal reflux disease without esophagitis Code(s): K21.9 - Gastro-esophageal reflux disease without esophagitis Status: Acute Assessment and Plan: The patient has evidence of moderate to severe reflux esophagitis probably superimposed on a Santiago's esophagus. Esophagitis might be the explanation for the recent coffee-ground emesis episode she had. More importantly, there is severe angulation at the level of the rectosigmoid/sigmoid area, correlating with the x-ray and CT findings. This area precluded the passage of the endoscope more proximally, due to the risk of perforation. There is a significant number of diverticula. Besides colonic dysfunction secondary to narcotic bowel, there might be a mechanical component either due to a diverticular stricture or just due to severe angulation from a preexistent redundant colon. In theory, the use of medications indicated for narcotic bowel could be tried, (Naloxegol, naldemedine) but not with evidence of a mechanical component like this patient seems to have. Caution administration of MiraLax, i.e., 17 g 3 to 4 times a day might be tried, otherwise, if problem persists, a decompressing colostomy might be indicated. Suggest surgical consultation for 2nd opinion. Regarding reflux, she should continue with PPIs permanently. (2) Narcotic bowel syndrome: Code(s): K63.89 - Other specified diseases of intestine; T40.601A - Poisoning by unspecified narcotics, accidental (unintentional), initial encounter Status: Acute (3) Abnormal CT scan, colon: Code(s): R93.3 - Abnormal findings on diagnostic imaging of other parts of digestive tract Status: Acute Subjective Date/time seen: 10/11/24 14:40 Interval history: See procecdure reports (EGD and sigmoidoscopy) Objective Data Vital Signs Vital Signs: Vital Signs - 24 hr 10/10/24 16:03 10/10/24 16:20 10/10/24 20:00 Temperature Pulse Rate 112 H 114 H 114 H Respiratory Rate Blood Pressure 147/74 H Pulse Oximetry 95 Oxygen Delivery 10/10/24 20:44 10/11/24 00:00 10/11/24 04:00 Temperature 98.5 F Pulse Rate 113 H 120 H 113 H Respiratory Rate 20 Blood Pressure 117/70 Pulse Oximetry 100 Oxygen Delivery 10/11/24 05:33 10/11/24 08:00 10/11/24 12:58 Temperature 98.4 F 97.8 F Pulse Rate 111 H 111 H 113 H Respiratory Rate 18 22 H Blood Pressure 100/74 84/58 L Pulse Oximetry 94 94 Oxygen Delivery Room Air Intake/Output Intake/Output: Intake & Output 10/08/24 10/09/24 10/10/24 10/11/24 23:59 23:59 23:59 23:59 Intake Total 1426.3 1750 920 685 Balance 1426.3 1750 920 685 Meds/Results Medications: Active Medications Generic Name Dose Route Start Last Admin Trade Name Freq PRN Reason Stop Dose Admin Acetaminophen 650 mg 10/03/24 14:52 10/09/24 08:05 Acetaminophen 325 Mg Tablet PO 650 mg Q6H PRN Administration Mild Pain (1-3) or Fever Albuterol 2 puff 10/03/24 14:50 Albuterol Sulfate (*Sp) Aerosol 1 Puff INHALATION Q4H PRN shortness of breath or wheezing Alprazolam 0.25 mg 10/03/24 14:50 10/11/24 00:32 Alprazolam (*Crx) 0.25 Mg Tablet PO 0.25 mg BID PRN Administration anxiety Amitriptyline HCl 50 mg 10/03/24 21:00 10/10/24 22:55 Amitriptyline Hcl 25 Mg Tablet PO Not Given HS STEVIE Amoxicillin/Clavulanate Potassium 1 tablet 10/09/24 18:00 10/10/24 05:27 Amoxicillin/Clavulanate K 875-125 Mg Tab PO Not Given Q12H STEVIE Aspirin 81 mg 10/04/24 11:30 10/11/24 11:33 Aspirin 81 Mg Chewable Tablet PO Not Given DAILY@0800 STEVIE Atorvastatin Calcium 40 mg 10/04/24 11:30 10/11/24 11:33 Atorvastatin 40 Mg Tablet PO Not Given DAILY STEVIE Dextrose 12.5 gm 10/11/24 07:41 10/11/24 08:55 Dextrose 50% 25 Gm/50 Ml Syringe IV PUSH 12.5 gm PRN PRN Administration Hypoglycemia Protocol Famotidine 20 mg 10/03/24 14:50 10/05/24 09:39 Famotidine 20 Mg Tablet PO 20 mg BID PRN Administration heartburn Fluticasone Propionate 1 spray 10/03/24 14:50 Fluticasone Propionate 0.05% Na Spr 16 Gm Btl (*Bkc) NASAL BID PRN allergies Gabapentin 100 mg 10/03/24 21:00 10/10/24 22:56 Gabapentin 100 Mg Capsule PO Not Given QHS STEVIE Glucagon 1 mg 10/11/24 07:41 Glucagon For Inj 1 Mg Vial IM PRN PRN Hypoglycemia Protocol Glucose 15 gm 10/11/24 07:41 Glucose Oral Gel 15 Gm Of Glucse In 37.5 Gm Tube PO PRN PRN Hypoglycemia Protocol Hydromorphone HCl 0.5 mg 10/11/24 11:08 10/11/24 11:23 Hydromorphone Hcl Inj (*Crx) 1 Mg/Ml Syr IV PUSH 0.5 mg Q3H PRN Administration Pain Rated 7-10 Levofloxacin/Dextrose 750 mg in 150 mls @ 100 mls/hr 10/10/24 14:00 10/10/24 16:01 Levaquin 750 Mg/D5w 150 Ml IVPB Infused Q24H STEVIE Infusion Piperacillin/Tazobactam/Dextrose 3.375 gm in 50 mls @ 100 mls/hr 10/10/24 15:30 10/11/24 12:34 Zosyn 3.375 Gm/Ns 50 Ml IVPB 100 mls/hr Q6HR STEVIE Administration Dextrose 1,000 mls @ 100 mls/hr 10/11/24 07:41 10/11/24 08:54 Dextrose 5% 1,000 Ml IVPB 100 mls/hr PRN PRN Administration Hypoglycemia Protocol Potassium Chloride/Dextrose/Sod Cl 1,000 mls @ 100 mls/hr 10/11/24 09:30 Kcl 40 Meq/D5ns IV CONT .Q10H STEVIE Lactated Ringer's 1,000 mls @ 150 mls/hr 10/11/24 12:55 10/11/24 14:39 Lr - Lactated Ringers Iv IV CONT 150 mls/hr .Q6H40M STEVIE Infusion Ketorolac Tromethamine 30 mg 10/11/24 11:10 10/11/24 11:22 Ketorolac 30 Mg/Ml Vial (*Bkc) IV PUSH 30 mg BID STEVIE Administration Lactulose 20 gm 10/04/24 13:00 10/11/24 11:33 Lactulose 20 Gm/30 Ml Udc PO Not Given TID [facility] Levofloxacin 750 mg 10/08/24 14:00 10/09/24 13:34 Levofloxacin 750 Mg Tablet PO 750 mg DAILY@1400 STEVIE Administration Ondansetron HCl 4 mg 10/06/24 10:51 10/11/24 03:41 Ondansetron Inj 4 Mg/2 Ml Vial IV PUSH 4 mg Q4H PRN Administration Nausea And Vomiting Oxycodone/Acetaminophen 1 tab 10/03/24 14:50 10/10/24 11:51 Oxycodone/Acetaminophen (*Crx) 10-325 Mg Tablet PO 1 tab Q6H PRN Administration Pain Rated 6 or Greater Pantoprazole Sodium 40 mg 10/04/24 09:00 10/11/24 11:33 Pantoprazole 40 Mg Tablet PO Not Given QAM [facility] Potassium Chloride 40 meq 10/07/24 12:35 10/11/24 11:33 Potassium Chloride 20 Meq Packet (For Liquid) PO Not Given DAILY [facility] Senna/Docusate Sodium 1 tab 10/08/24 13:00 10/11/24 11:34 Senna/Docusate Sodium Tablet PO Not Given Q12HR [facility] Simethicone 250 mg 10/07/24 17:00 10/11/24 11:34 Simethicone 125 Mg Chew Tab PO Not Given QID [facility] Radiology Results: ITS Impressions Chest X-Ray 10/04/24 09:08 IMPRESSION: 1. Increasing opacities with some associated volume loss in the right upper lung zone consistent with atelectasis and could not exclude superimposed pneumonia or malignancy. Recommend either further evaluation with chest CT or short interval follow-up chest radiograph to document resolution. 2. Mild left basilar opacities and favor atelectasis over pneumonia. 3. Emphysema. Enema w/Water Soluble 10/04/24 10:10 IMPRESSION: 1. Large amount of stool scattered throughout the colon. No fixed stricture or mucosal irregularity to suggest malignancy. Chest CT 10/04/24 15:05 IMPRESSION: 3.4 cm right apical cavitary lesion with irregular wall thickening. Differential includes infection, malignancy, noninfectious granuloma, and pulmonary infarct with. Moderate emphysema. Small left and trace right pleural effusions. Abdomen/Pelvis CT 10/06/24 13:40 Impression: Extensive, prominent distention of most of the large bowel with an area of apparent luminal narrowing and abrupt caliber change at the distal sigmoid colon/proximal rectum, as detailed above. Appearance is similar to prior exam. No definite mass lesion seen. This could reflect a colonic stricture versus the possibility of a subtle infiltrating neoplasm, although again, no definite mass seen. Small to moderate left pleural effusion and small right pleural effusion. 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 Stable bilateral adrenal nodules, indeterminate. Spinal compression fractures, as above. Abdomen X-Ray 10/09/24 09:59 IMPRESSION: 1. Persistent gaseous distention of the colon with small distal colonic stool and small amount scattered residual oral contrast material from water-soluble enema from 5 days prior. Labs Labs: Laboratory Results - last 24 hr 10/11/24 10/11/24 10/11/24 06:41 06:46 07:51 WBC 6.5 RBC 3.92 L Hgb 11.8 L Hct 37.8 MCV 96.4 MCH 30.1 MCHC 31.2 L RDW 13.7 Plt Count 586 H MPV 8.9 Immature Gran % (Auto) 0.6 H Neut % (Auto) 91.0 H Lymph % (Auto) 5.4 L [place] % (Auto) 2.1 L Eos % (Auto) 0.0 Baso % (Auto) 0.9 Lymph # (Auto) 0.35 L [place] # (Auto) 0.1 Eos # (Auto) 0.0 Baso # (Auto) 0.1 Abs Immat Gran (auto) 0.04 H Absolute Neuts (auto) 5.9 Absolute Nucleated RBC 0.000 Nucleated RBC % 0.0 Sodium 140 Potassium 4.3 Chloride 108 H Carbon Dioxide 25 Anion Gap 7 BUN 10 D Creatinine 0.80 Estim Creat Clear Calc 37 Estimated GFR > 60 Glucose 54 L* POC Capillary Glucose 110 H Hemoglobin A1c 5.3 Calcium 7.4 L Total Bilirubin 0.4 AST 37 H ALT 19 Alkaline Phosphatase 134 H Total Protein 5.0 L Albumin 2.2 L 10/11/24 10/11/24 11:39 12:48 WBC RBC Hgb Hct MCV MCH MCHC RDW Plt Count MPV Immature Gran % (Auto) Neut % (Auto) Lymph % (Auto) [place] % (Auto) Eos % (Auto) Baso % (Auto) Lymph # (Auto) [place] # (Auto) Eos # (Auto) Baso # (Auto) Abs Immat Gran (auto) Absolute Neuts (auto) Absolute Nucleated RBC Nucleated RBC % Sodium Potassium Chloride Carbon Dioxide Anion Gap BUN Creatinine Estim Creat Clear Calc Estimated GFR Glucose POC Capillary Glucose 103 108 H Hemoglobin A1c Calcium Total Bilirubin AST ALT Alkaline Phosphatase Total Protein Albumin
--- NOTE | 2024-10-11 14:46 | PCOTNOTE ---
Per RN, Patient had some complications during test/procedure and having low blood pressures. Patient unable to participate this afternoon.
[2024-10-11] MEDS: levoFLOXacin 750 MG/D5W 150 ML 750 MG/150 ML BAG 100 MG IVPB (14:55)
[2024-10-11 15:03] LABS: Glucose Point of Care 84 mg/dl (65-105)
--- NOTE | 2024-10-11 15:38 | SUR.PHASEII ---
Pt requiring 2L NC. JOHN Echavarria made aware.
[2024-10-11] MEDS: KCL 40 MEQ/D5/0.9% SOD CHL 1,000 ML 100 ML IV CONT (16:15)
[2024-10-11 18:05] LABS: Glucose Point of Care 89 mg/dl (65-105)
--- NOTE | 2024-10-11 18:26 | P.CONGS_ITS ---
Assessment and Plan Assessment and plan (1) Stercoral colitis: Code(s): K52.89 - Other specified noninfective gastroenteritis and colitis Status: Acute Assessment and Plan: Patient with note on sigmoidoscopy today, Hypaque enema reviewed and largely unremarkable, patient may benefit from diverting loop colostomy verses sigmoid colectomy with end colostomy (2) Narcotic bowel syndrome: Code(s): K63.89 - Other specified diseases of intestine; T40.601A - Poisoning by unspecified narcotics, accidental (unintentional), initial encounter Status: Acute Assessment and Plan: Chronic constipation, obstipation likely multifactorial major contributing use chronic narcotics, may benefit diverting colostomy History of Present Illness Consult details Consult date: 10/11/24 Reason for consult: abdominal pain Requesting physician: Nathalia Pierson, ALFREDO Narrative: The patient is a 74 year old female presenting to the emergency department complaining of severe abdominal pain obstipation. The patient has had multiple past visits was similar episodes. The patient looks to have a large bowel obstruction secondary to angulation of her sigmoid colon. She continues to complain of severe abdominal pain at this point, I though she has had multiple loose bowel movements. The patient had sigmoidoscopy today noted to have severe angulation to the point they were unable to pass the scope area. The patient has had a Hypaque enema that was largely unremarkable. The patient also suffers from chronic back pain and has chronic constipation likely secondary to opiate use. Review of Systems 2 Review of Systems: All systems reviewed & are unremarkable except as noted in HPI and below PMFSH Past Medical History Medical History Coffee ground emesis Nausea and vomiting in adult Abnormal CT scan, colon Essential hypertension Vertigo Sinusitis Sinus arrhythmia (~12/03/23) no atrial fibrillation on EKG 12/03/2023. Sinus rhythm with sinus arrhythmia. Arrhythmia (~12/03/23) irregularly irregular rhythm on 12/03/2023. Peripheral vascular disease of lower extremity (~2007) history of stents distal aorta to the common iliac bilaterally 11/09/2007. Anemia hemoglobin 11.4 on 04/04/2022. Hemoglobin 11.3 on 04/15/2022. Vitamin B12 was 1200 with folic acid greater than 24 and iron 47. hemoglobin 11.9 with iron 43 on 12/03/2023. Abdominal aortic atherosclerosis (~2021) severe proximal aortic atherosclerotic disease with stenosis on CT of the abdomen ER 04/15/2022. UTI (urinary tract infection) Underweight due to inadequate caloric intake Rhinitis Insomnia GERD (gastroesophageal reflux disease) Microscopic hematuria Mixed hyperlipidemia Total cholesterol 166, HDL 40, triglycerides 146 and LDL 101 with AST 19 and ALT 13 on 04/04/2022 with thyroid function normal with TSH 1.98 and free T4 1.3. Total cholesterol 186 with triglycerides 146 and HDL 40 on 12/03/2023. Abnormal fasting glucose Fasting glucose 102 with hemoglobin A1c 4.8 on 04/04/2022. Fasting glucose 104 on 12/03/2023. Age-related osteoporosis without current pathological fracture Chronic bilateral low back pain Chronic depression Chronic obstructive pulmonary disease, unspecified Surgical History Surgical History S/P peripheral artery angioplasty with stent placement The patient had attempt at stent placement our facility in 2006 but was unsuccessful. Evidently patient later had a secondary procedure at another facility but details are not available Hx of cholecystectomy Family History Family History Father Family history of cardiovascular disease, Onset Age: 70 Mother Family history of malignant neoplasm, Onset Age: 60 Grandparent Family history of malignant neoplasm Social History Social History Social History: Patient lives in her own home. She raised 4 children. Her oldest son at age 39 of unknown causes. Her remaining children are in relatively good health. Her daughter Emily at bedside. The patient's has smoked up to a pack of cigarettes per day but has been down to half a pack per day for ?awhile.? She denies any significant history of alcohol use or illicit substance use. She used to work at [employer]. Code status: DNR/DNI Healthcare power of criminal defense attorney: Emily Lopez Smoking packs per day: 0.5 Smoking cigarettes per day: 10.0 Years smoked: 60 Smoking pack-years: 30.00 Smoking status: Current every day smoker Alcohol intake: never Substance use: never Substance use type: does not use Do You Feel Safe in your Home?: Yes Lack of Transportation: No Lack of Food: Never True Current Housing: Decline to Answer Concerned About Future Housing: Decline to Answer Difficulty Paying Gas/Electric Bills: Decline to Answer Difficulty Paying for Meds: Decline to Answer Currently Unemployed: Decline to Answer Education: Decline to Answer Difficulty w/ Childcare or Family Care: Decline to Answer Spiritual care concerns: No Meds Home Medications and Allergies Home Medications ?Medication ?Instructions ?Recorded ?Confirmed ?Type amitriptyline 75 mg tablet 75 mg PO . q.h.s. #30 tabs 11/03/23 10/03/24 Rx albuterol sulfate 90 mcg/actuation 2 puff inhalation Q4H PRN 05/19/24 10/03/24 Rx aerosol inhaler shortness of breath or wheezing #8.5 grams alprazolam 0.25 mg tablet 0.25 mg PO BID PRN anxiety #30 tabs 05/19/24 10/03/24 Rx lisinopril 5 mg tablet 5 mg PO DAILY #90 tabs 05/19/24 10/03/24 Rx pantoprazole 40 mg tablet,delayed 40 mg PO QAM #90 tabs 05/19/24 10/03/24 Rx release (Protonix) oxycodone-acetaminophen 10 mg-325 1 tablet PO Q4H PRN pain #180 tabs 08/27/24 10/03/24 Rx mg tablet (Percocet) famotidine 20 mg tablet 20 mg PO BID PRN heartburn #60 tabs 09/01/24 10/03/24 Rx gabapentin 100 mg capsule 100 mg PO QHS #90 caps 09/01/24 10/03/24 Rx linaclotide 145 mcg capsule 145 mcg PO DAILY@0630 90 days #90 09/24/24 10/03/24 Rx (Linzess) caps fluticasone propionate 50 1 spray intranasal BID PRN 10/03/24 10/03/24 History mcg/actuation nasal allergies spray,suspension (Flonase Allergy Relief) Allergies Allergy/AdvReac Type Severity Reaction Status Date / Time No Known Allergies Allergy Mild Verified 10/03/24 10:20 Vital Signs Vital Signs - 24 hr 10/10/24 20:00 10/10/24 20:44 10/11/24 00:00 Temperature 36.9 C Pulse Rate 114 H 113 H 120 H Respiratory Rate 20 Blood Pressure 117/70 Pulse Oximetry 100 Oxygen Delivery Oxygen Flow Rate 10/11/24 04:00 10/11/24 05:33 10/11/24 08:00 Temperature 36.9 C Pulse Rate 113 H 111 H 111 H Respiratory Rate 18 Blood Pressure 100/74 Pulse Oximetry 94 Oxygen Delivery Oxygen Flow Rate 10/11/24 12:58 10/11/24 14:40 10/11/24 14:50 Temperature 36.6 C Pulse Rate 113 H 94 99 Respiratory Rate 22 H 29 H 26 H Blood Pressure 84/58 L 149/73 H 158/78 H Pulse Oximetry 94 92 94 Oxygen Delivery Room Air Room Air Nasal Cannula Oxygen Flow Rate 2 10/11/24 15:00 10/11/24 15:10 10/11/24 15:38 Temperature 35.9 C L Pulse Rate 99 97 106 H Respiratory Rate 26 H 27 H 20 Blood Pressure 147/84 H 142/89 H 118/84 Pulse Oximetry 95 94 96 Oxygen Delivery Nasal Cannula Nasal Cannula Oxygen Flow Rate 2 2 Exam 2 Const: General: acute distress mild, ill appearing, tired appearing, uncomfortable and underweight HENMT: Head: normal to inspection, normocephalic and atraumatic Eyes: General: appearance normal, both eyes and all related structures Neck: Neck: normal visual inspection and no lymphadenopathy Resp: Auscultation: diminished lung sounds Cardio: Rate: tachycardic Rhythm: regular rhythm GI: Inspection: normal to inspection and distended GI Palp: Yes abdominal tenderness, Yes Soft to palpation, No Firmness to palpation present (GI), Yes Tenderness to palpation present (GI), No Guarding due to palpation present (GI) and No Rigid due to palpation Skin: General skin exam: normal color and no rashes or lesions noted Neuro: General: patient oriented x3 and CN's II-XI intact bilaterally Extrem: General: normal to inspection and full ROM Results Labs 10/11/24 06:46 10/11/24 06:46 Labs: Abnormal lab results 10/11/24 10/11/24 10/11/24 Range/Units 06:46 07:51 12:48 RBC 3.92 L (4.2-5.4) M/mm3 Hgb 11.8 L (12.0-15.0) g/dL MCHC 31.2 L (32-36) g/dl Plt Count 586 H (150-375) k/mm3 Immature Gran % (Auto) 0.6 H (0-0.5) % Neut % (Auto) 91.0 H (45.5-73.1) % Lymph % (Auto) 5.4 L (18.3-44.2) % [place] % (Auto) 2.1 L (2.6-8.5) % Lymph # (Auto) 0.35 L (0.9-3.2) K/mm3 Abs Immat Gran (auto) 0.04 H (0.00-0.031) K/mm3 Chloride 108 H (98-107) mmol/L Glucose 54 L* (65-110) mg/dL POC Capillary Glucose 110 H 108 H (65-105) mg/dl Calcium 7.4 L (8.4-10.2) mg/dL AST 37 H (14-36) U/L Alkaline Phosphatase 134 H (38-126) U/L Total Protein 5.0 L (6.3-8.2) g/dL Albumin 2.2 L (3.5-5.1) g/dL Diabetes panel 10/11/24 10/11/24 Range/Units 06:41 06:46 Sodium 140 (137-145) mmol/L Potassium 4.3 (3.4-5.0) mmol/L Chloride 108 H (98-107) mmol/L Carbon Dioxide 25 (22-30) mmol/L BUN 10 D (7-17) mg/dL Creatinine 0.80 (0.7-1.0) mg/dL Glucose 54 L* (65-110) mg/dL Hemoglobin A1c 5.3 (<5.7) % Calcium 7.4 L (8.4-10.2) mg/dL AST 37 H (14-36) U/L ALT 19 (6-35) U/L Alkaline Phosphatase 134 H (38-126) U/L Total Protein 5.0 L (6.3-8.2) g/dL Albumin 2.2 L (3.5-5.1) g/dL Calcium panel 10/11/24 Range/Units 06:46 Calcium 7.4 L (8.4-10.2) mg/dL Albumin 2.2 L (3.5-5.1) g/dL Pituitary panel 10/11/24 Range/Units 06:46 Sodium 140 (137-145) mmol/L Potassium 4.3 (3.4-5.0) mmol/L Chloride 108 H (98-107) mmol/L Carbon Dioxide 25 (22-30) mmol/L BUN 10 D (7-17) mg/dL Creatinine 0.80 (0.7-1.0) mg/dL Glucose 54 L* (65-110) mg/dL Calcium 7.4 L (8.4-10.2) mg/dL Adrenal panel 10/11/24 Range/Units 06:46 Sodium 140 (137-145) mmol/L Potassium 4.3 (3.4-5.0) mmol/L Chloride 108 H (98-107) mmol/L Carbon Dioxide 25 (22-30) mmol/L BUN 10 D (7-17) mg/dL Creatinine 0.80 (0.7-1.0) mg/dL Glucose 54 L* (65-110) mg/dL Calcium 7.4 L (8.4-10.2) mg/dL Total Bilirubin 0.4 (0.2-1.3) mg/dL AST 37 H (14-36) U/L ALT 19 (6-35) U/L Alkaline Phosphatase 134 H (38-126) U/L Total Protein 5.0 L (6.3-8.2) g/dL Albumin 2.2 L (3.5-5.1) g/dL All other labs normal. Imaging Abdomen CT scan report/results: report reviewed and image reviewed Additional studies: Hypaque enema and sigmoidoscopy reports reviewed
--- NOTE | 2024-10-11 21:12 | PM.EVENT ---
Event Note Event Note Event Note: [facility] called at shortly after 20:30. Dr. Powers and I evaluated the patient at bedside. Nurse reports that the patient was retaining urine and they went to insert a Pantoja catheter and found the patient pale complaining of severe abdominal pain. Blood pressure was in a 70 systolic and her extremities were cool with decreased capillary refill. She was alert and oriented at the time my evaluation. Abdomen was slightly distended with hypoactive bowel sounds. She demonstrated significant tenderness to palpation throughout the abdomen with voluntary guarding but no obvious rebound tenderness. She was tachycardic rates in the 1 teens. Normal saline bolus ordered as well as several labs and a KUB. We discussed placement of a central venous catheter for vasopressors and possible surgery. The patient and her daughters decided that she would not want aggressive treatment and opted for comfort measures. Critical Care Time Critical Care Time: Yes Total Critical Care Time: 30 Attestation: Due to a high probability of clinically significant, life threatening deterioration, the patient required my highest level of preparedness to intervene emergently and I personally spent this critical care time directly and personally managing the patient. This critical care time included obtaining a history; examining the patient; pulse oximetry; ordering and review of studies; arranging urgent treatment with development of a management plan; evaluation of patient's response to treatment; frequent reassessment; and discussions with other providers. It was exclusive of separately billable procedures and treating other patients and teaching time. Please see Assessment and Plan section and the rest of the note for further information on patient assessment and treatment
[2024-10-11 21:24] LABS: Glucose Point of Care 77 mg/dl (65-105)
--- NOTE | 2024-10-11 21:42 | PC.NURSE ---
Spoke with Dr. Powers, patient and family have decided to go comfort care. Do not give normal saline bolus or albumin. Dr. Powers to enter orders.
[2024-10-11] MEDS: LORazepam INJ (*CRX) 2 MG/ML VIAL IV PUSH (22:13)
[2024-10-11] MEDS: HYDROmorphone HCL/PF (*CRX) 50 MG in SODIUM CHLORIDE 0.9% IV 95 ML IV CONT (22:49)
[2024-10-11] MEDS: HYDROmorphone HCL INJ (*CRX) 1 MG/ML SYR 5 MG IV PUSH (23:39)
[2024-10-12 06:00] VITALS: BP 58/37; PULSE 98; RESP 16; TEMP 37.1; O2SAT 81
[2024-10-12 09:00] VITALS: O2SAT 95
[2024-10-12 09:20] VITALS: BP 60/38; PULSE 32; RESP 13; TEMP 36; O2SAT 94
--- NOTE | 2024-10-12 10:49 | P.PNGS_ITS ---
Progress Note: A&P Assessment and Plan (1) Sepsis: Code(s): A41.9 - Sepsis, unspecified organism Status: Acute Assessment and Plan: Exam worsened acutely overnight, likely from intra-abdominal source, long disc ussion with daughter and decision to proceed with comfort care at this point, will sign off, call with questions or issues Subjective Subjective Date/Time Seen: 10/12/24 10:49 Interval history: events overnight noted, discussed c daughter and they wish to proceed c comfort care Review of Systems Review of Systems: ROS unobtainable: Yes unobtainable due to medical condition Exam Const: General: ill appearing Resp: Effort & Inspection: abnormal respiratory pattern Auscultation: diminished lung sounds Cardio: Rate: regular rate Rhythm: regular rhythm GI: Inspection: distended GI Palp: Yes Firmness to palpation present (GI), Yes Guarding due to palpation present (GI) and Yes Rigid due to palpation Objective Data Vital Signs Vital Signs: Vital Signs - 24 hr 10/11/24 12:00 10/11/24 12:58 10/11/24 14:40 Temperature 36.6 C Pulse Rate 115 H 113 H 94 Respiratory Rate 22 H 29 H Blood Pressure 84/58 L 149/73 H Pulse Oximetry 94 92 Oxygen Delivery Room Air Room Air Oxygen Flow Rate 10/11/24 14:50 10/11/24 15:00 10/11/24 15:10 Temperature Pulse Rate 99 99 97 Respiratory Rate 26 H 26 H 27 H Blood Pressure 158/78 H 147/84 H 142/89 H Pulse Oximetry 94 95 94 Oxygen Delivery Nasal Cannula Nasal Cannula Nasal Cannula Oxygen Flow Rate 2 2 2 10/11/24 15:38 10/11/24 16:00 10/11/24 20:00 Temperature 35.9 C L Pulse Rate 106 H 108 H 112 H Respiratory Rate 20 Blood Pressure 118/84 Pulse Oximetry 96 Oxygen Delivery Oxygen Flow Rate 10/11/24 20:51 10/11/24 21:00 10/12/24 06:00 Temperature 37.3 C 37.3 C 37.1 C Pulse Rate 110 H 111 H 98 Respiratory Rate 18 16 Blood Pressure 75/40 L 75/48 L 58/37 L Pulse Oximetry 93 81 L Oxygen Delivery Oxygen Flow Rate 10/12/24 09:20 Temperature 36.0 C L Pulse Rate 32 L Respiratory Rate 13 Blood Pressure 60/38 L Pulse Oximetry 94 Oxygen Delivery Oxygen Flow Rate Intake/Output Intake/Output: Intake & Output 10/09/24 10/10/24 10/11/24 10/12/24 23:59 23:59 23:59 23:59 Intake Total 8052 289 2582 1.3 Output Total 200 Balance 3484 064 9463 -198.7 Meds/Results Medications: Active Medications Generic Name Dose Route Start Last Admin Trade Name Freq PRN Reason Stop Dose Admin Hydromorphone HCl 2 mg 10/12/24 00:03 Hydromorphone Hcl Inj (*Crx) 1 Mg/Ml Syr IV PUSH Q2H PRN Pain Rated 7-10 Hyoscyamine 0.125 mg 10/11/24 23:16 Hyoscyamine Sulfate Soln 0.125 Mg/Ml Oral Syringe PO Q4H PRN Abdominal Cramping Hydromorphone HCl 50 mg/ 100 mls @ 2 mls/hr 10/11/24 22:25 10/12/24 00:05 Sodium Chloride IV CONT 1 mg/hr .Q24H STEVIE 2 mls/hr Infusion 1 MG/HR Lorazepam 2 mg 10/11/24 21:45 10/11/24 22:13 Lorazepam Inj (*Crx) 2 Mg/Ml Vial IV PUSH 2 mg Q2H PRN Administration Agitation Radiology Results: ITS Impressions Chest X-Ray 10/04/24 09:08 IMPRESSION: 1. Increasing opacities with some associated volume loss in the right upper lung zone consistent with atelectasis and could not exclude superimposed pneumonia or malignancy. Recommend either further evaluation with chest CT or short interval follow-up chest radiograph to document resolution. 2. Mild left basilar opacities and favor atelectasis over pneumonia. 3. Emphysema. Enema w/Water Soluble 10/04/24 10:10 IMPRESSION: 1. Large amount of stool scattered throughout the colon. No fixed stricture or mucosal irregularity to suggest malignancy. Chest CT 10/04/24 15:05 IMPRESSION: 3.4 cm right apical cavitary lesion with irregular wall thickening. Differential includes infection, malignancy, noninfectious granuloma, and pulmonary infarct with. Moderate emphysema. Small left and trace right pleural effusions. Abdomen/Pelvis CT 10/06/24 13:40 Impression: Extensive, prominent distention of most of the large bowel with an area of apparent luminal narrowing and abrupt caliber change at the distal sigmoid colon/proximal rectum, as detailed above. Appearance is similar to prior exam. No definite mass lesion seen. This could reflect a colonic stricture versus the possibility of a subtle infiltrating neoplasm, although again, no definite mass seen. Small to moderate left pleural effusion and small right pleural effusion. 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 Stable bilateral adrenal nodules, indeterminate. Spinal compression fractures, as above. Abdomen X-Ray 10/09/24 09:59 IMPRESSION: 1. Persistent gaseous distention of the colon with small distal colonic stool and small amount scattered residual oral contrast material from water-soluble enema from 5 days prior. Labs Labs: Laboratory Results - last 24 hr 10/11/24 10/11/24 10/11/24 06:41 11:39 12:48 POC Capillary Glucose 103 108 H Hemoglobin A1c 5.3 10/11/24 10/11/24 10/11/24 14:51 18:02 20:52 POC Capillary Glucose 84 89 77 Hemoglobin A1c
--- NOTE | 2024-10-12 11:55 | PCNFU ---
Nutrition Follow-Up Complete: Suboptimal po intake related to appetite and altered GI function as evidenced by pt report Goal:PO intake improved to greater than 50% of meals and supplements Pt not meeting goal. Pt is no longer on a diet, comfort measures have been chosen by family at this time. Pt current nutrition is NPO. Nutrition recommendation: comfort measures per family, resume previous diet order Last recorded weight is 43.9 kg. Bowel Motility: +BM 10/10 Labs Reviewed: Hgb:11.8, Alb:2.2, Glu:110 Meds Noted: lactulose, KCL, senna Skin: WNL Additional Notes: Pt is no longer on a diet, family has chosen comfort measures at this time. Spoke with hospitalist for today and she will resume a regular diet for pt. Recommend Ensure Enlive TID with meals as that was what pt was at least sipping on prior to today.. Care coordination to re-evaluate today. monitor status, diet orders, intake, wt, labs. Follow up in 3 days.
[2024-10-12] MEDS: HYDROmorphone HCL INJ (*CRX) 1 MG/ML SYR 2 MG IV PUSH (12:14)
--- NOTE | 2024-10-12 12:46 | P.PNIM_ITS ---
Progress Note: A&P Assessment and Plan (1) Constipation: Qualifiers: Constipation type: drug induced constipation Qualified Code(s): K59.03 - Drug induced constipation Code(s): K59.00 - Constipation, unspecified Status: Acute Assessment and Plan: * Water soluble enema 10/04/24 with multiple BMs * Minimize narcotic use * Continue Nausea control with Zofran, however this can contribute to worsening constipation. Use with caution * Continue to wean Elavil * Abdomen firm, distended, tender * CT scan of abdomen pelvis show extensive prominent distension of most of the large bowel with an area of apparent luminal narrowing an abrupt caliber change at the distal sigmoid colon, appearance is similar to prior exam, no definite mass lesion seen. * Encouraged patient to ambulate in the halls as well as be up out of the bed for minimum of 2 hours with each meal even if she does not eat. She was told that she needs to work with therapy on all of these goals. She has not been up today. * continue docusate sodium/Senna * continue lactulose b.i.d. 10/08 * patient had 6 liquid bowel movements yesterday with a lactulose enema * KUB showing persistent gaseous distention of the colon with small distal colonic stool and small amount scattered residual oral contrast material from water-soluble enema from 5 days prior. 10/09 * Reconsulting GI for further recommendations 10/10 * NPO after midnight * NS +40KCL @100ml/hr ordered * Continue nausea and pain medications * Transition antibiotics to IV * GI plans for EGD and sigmoidoscopy with disimpaction tomorrow. 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 IVF yesterday * Will continue to monitor * continuous tele for now (4) Cavitary lesion of lung: Code(s): J98.4 - Other disorders of lung Status: Acute Assessment and Plan: * Chest x-ray showing increased opacities with volume loss in right upper lobe and mild left basilar opacities. * CT of the chest shows 3.4 cm right apical cavitary lesion and moderate emphysema * Pulmonology consulted and thinks this is likely infection versus malignancy and recommends longer duration antibiotics with Zosyn/Augmentin and Levaquin * TB and gold test pending * MRSA negative * Will need to follow up with pulmonology after discharge * Will also need to repeat CT scan in 6 weeks (5) Leukocytosis: Qualifiers: Leukocytosis type: unspecified Qualified Code(s): D72.829 - Elevated white blood cell count, unspecified Code(s): D72.829 - Elevated white blood cell count, unspecified Status: Acute Assessment and Plan: * White blood cell count down to 6.5 * Changing Augmentin back to Zosyn due to nausea and vomiting. 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, dilation of the appendix likely secondary to stool impaction no fat stranding around the appendix to suggest appendicitis * CT scan of abdomen pelvis show extensive prominent distension of most of the large bowel with an area of apparent luminal narrowing an abrupt caliber change at the distal sigmoid colon, appearance is similar to prior exam, no de finite mass lesion seen (6) Peripheral vascular disease of lower extremity: Onset Date: ~2007 Code(s): I73.9 - Peripheral vascular disease, unspecified Status: Acute Assessment and Plan: * Continue aspirin and Lipitor (7) Tobacco abuse: Code(s): Z72.0 - Tobacco use Status: Acute Assessment and Plan: * Smoking cessation information given Subjective Date/time seen: 10/12/24 12:46 Interval history: Patient became hypotensive overnight and severe abdominal pain. Rapid response was called around 20:30 last night. Pressors with central line placement and surgical intervention was discussed Family opted for comfort measures only. Care coordination consulted for hospice consult. Chart reviewed. Review of Systems Review of Systems: All systems reviewed & are unremarkable except as noted in HPI and below Constitutional: Constitutional: Reports as per HPI and Reports no additional constitutional complaints Eyes: Eyes: Reports as per HPI and Reports no additional eye complaints ENT: Reports system reviewed and no additional complaints, except as documented and Reports as per HPI Cardiovascular: Cardiovascular: Reports as per HPI and Reports no additional cardiovascular complaints Respiratory: Respiratory: Reports as per HPI and Reports no additional respiratory complaints Gastrointestinal: Gastrointestinal: Reports as per HPI and Reports no additional gastrointestinal complaints Genitourinary: Genitourinary: Reports no additional female genitourinary complaints and Reports as per HPI Musculoskeletal: Musculoskeletal: Reports no additional musculoskeletal complaints and Reports as per HPI Integumentary/Breasts: Skin/Breast: Reports system reviewed and no additional complaints, except as docu and Reports as per HPI Neurologic: Reports system reviewed and no additional complaints, except as documented and Reports as per HPI Psychiatric: Psychiatric: Reports no additional psychiatric complaints and Reports as per HPI Exam Narrative: Cardiac: Normal S1 and S2. RRR, No murmur, gallops or friction rubs, peripheral pulses intact. Respiratory: Lungs clear to auscultation, no adventitious lung sounds, currently on room air Gastrointestinal: soft, not as distended, very tender, hypoactive bowel sounds. : voiding without difficulty. Neuro: Alert and oriented x4 Objective Data Vital Signs Vital Signs: Vital Signs - 24 hr 10/11/24 12:58 10/11/24 14:40 10/11/24 14:50 Temperature 97.8 F Pulse Rate 113 H 94 99 Respiratory Rate 22 H 29 H 26 H Blood Pressure 84/58 L 149/73 H 158/78 H Pulse Oximetry 94 92 94 Oxygen Delivery Room Air Room Air Nasal Cannula Oxygen Flow Rate 2 10/11/24 15:00 10/11/24 15:10 10/11/24 15:38 Temperature 96.7 F L Pulse Rate 99 97 106 H Respiratory Rate 26 H 27 H 20 Blood Pressure 147/84 H 142/89 H 118/84 Pulse Oximetry 95 94 96 Oxygen Delivery Nasal Cannula Nasal Cannula Oxygen Flow Rate 2 2 10/11/24 16:00 10/11/24 20:00 10/11/24 20:51 Temperature 99.1 F Pulse Rate 108 H 112 H 110 H Respiratory Rate Blood Pressure 75/40 L Pulse Oximetry Oxygen Delivery Oxygen Flow Rate 10/11/24 21:00 10/12/24 06:00 10/12/24 09:20 Temperature 99.1 F 98.8 F 96.8 F L Pulse Rate 111 H 98 32 L Respiratory Rate 18 16 13 Blood Pressure 75/48 L 58/37 L 60/38 L Pulse Oximetry 93 81 L 94 Oxygen Delivery Oxygen Flow Rate Intake/Output Intake/Output: Intake & Output 10/09/24 10/10/24 10/11/24 10/12/24 23:59 23:59 23:59 23:59 Intake Total 1764 313 0003 1.3 Output Total 200 Balance 5261 195 3817 -198.7 Meds/Results Medications: Active Medications Generic Name Dose Route Start Last Admin Trade Name Freq PRN Reason Stop Dose Admin Hydromorphone HCl 2 mg 10/12/24 00:03 10/12/24 12:14 Hydromorphone Hcl Inj (*Crx) 1 Mg/Ml Syr IV PUSH 2 mg Q2H PRN Administration Pain Rated 7-10 Hyoscyamine 0.125 mg 10/11/24 23:16 Hyoscyamine Sulfate Soln 0.125 Mg/Ml Oral Syringe PO Q4H PRN Abdominal Cramping Hydromorphone HCl 50 mg/ 100 mls @ 2 mls/hr 10/11/24 22:25 10/12/24 00:05 Sodium Chloride IV CONT 1 mg/hr .Q24H STEVIE 2 mls/hr Infusion 1 MG/HR Lorazepam 2 mg 10/11/24 21:45 10/11/24 22:13 Lorazepam Inj (*Crx) 2 Mg/Ml Vial IV PUSH 2 mg Q2H PRN Administration Agitation Radiology Results: ITS Impressions Chest X-Ray 10/04/24 09:08 IMPRESSION: 1. Increasing opacities with some associated volume loss in the right upper lung zone consistent with atelectasis and could not exclude superimposed pneumonia or malignancy. Recommend either further evaluation with chest CT or short interval follow-up chest radiograph to document resolution. 2. Mild left basilar opacities and favor atelectasis over pneumonia. 3. Emphysema. Enema w/Water Soluble 10/04/24 10:10 IMPRESSION: 1. Large amount of stool scattered throughout the colon. No fixed stricture or mucosal irregularity to suggest malignancy. Chest CT 10/04/24 15:05 IMPRESSION: 3.4 cm right apical cavitary lesion with irregular wall thickening. Differential includes infection, malignancy, noninfectious granuloma, and pulmonary infarct with. Moderate emphysema. Small left and trace right pleural effusions. Abdomen/Pelvis CT 10/06/24 13:40 Impression: Extensive, prominent distention of most of the large bowel with an area of apparent luminal narrowing and abrupt caliber change at the distal sigmoid colon/proximal rectum, as detailed above. Appearance is similar to prior exam. No definite mass lesion seen. This could reflect a colonic stricture versus the possibility of a subtle infiltrating neoplasm, although again, no definite mass seen. Small to moderate left pleural effusion and small right pleural effusion. 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 Stable bilateral adrenal nodules, indeterminate. Spinal compression fractures, as above. Abdomen X-Ray 10/09/24 09:59 IMPRESSION: 1. Persistent gaseous distention of the colon with small distal colonic stool and small amount scattered residual oral contrast material from water-soluble enema from 5 days prior. Labs Labs: Laboratory Results - last 24 hr 10/11/24 10/11/24 10/11/24 12:48 14:51 18:02 POC Capillary Glucose 108 H 84 89 10/11/24 20:52 POC Capillary Glucose 77 Quality VTE Prophylaxis VTE prophylaxis: mechanical ordered
--- NOTE | 2024-10-12 16:51 | P.DN_ITS ---
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 Workup was positive for severe protein calorie malnutrition, stercoral colitis, constipation, narcotic bowel syndrome. Patient has had trouble with keeping food and fluid down and has been on IV fluids for dehydration. She went for a water-soluble enema on 10/04/2024 which shown large amount of stool scattered throughout the colon, no fixed stricture or mucosal irregularity to suggest malignancy. She was given some pain medications for her abdominal pain however this was cautious due to her narcotic bowel syndrome. Her white count was elevated on admission and she was sent for a chest CT which showed a 3.4 cm right apical cavitary lesion and moderate emphysema, no signs of pneumonia. She also was noted to have a UTI was started on Zosyn. Since the water-soluble enema she was noted to have multiple bowel movements and was continued on lactulose. She was noted also be on Elavil and that was being weaned due to her constipation. She was given oral pain medication. On 10/06/2024 which was my 1st evaluation of her she was having nausea requiring Zofran and still complaining of quite a bit of abdominal pain. Her abdomen was firm and distended. We went ahead and rescanned her abdomen and pelvis which showed extensive prominent distention of most of the large bowel with an area of apparent luminal narrowing and abrupt caliber change at the distal sigmoid colon proximal to the rectum, small to moderate left pleural effusion and small right pleural effusion, spinal compression fractures. She was adjusted back to IV pain medication and nausea medication at that time and we went ahead and got GI involved. She went for an EGD on 10/11/2024 which shown reflux esophagitis grade B, a large hiatal hernia without obstruction was found. It was noted that they could not advance past a certain point in her bowel which could be a transition point or volvulus. They recommended general surgery consult. This was discussed with the patient and the family at the bedside. Patient remained in pain. After the EGD patient became hypotensive overnight. A rapid response was called for her low blood pressures. A central line was offered as she would require pressors however it was noted that the patient and family were not wanting any further aggressive treatment and would rather be placed on comfort measures for better pain control. We switched orders to comfort measures only with pain medications as the emphasis of treatment. Patient passed at 15:45 on 10/12/24 with family at bedside. Additional Data Confirmation of as documented by pronouncing clinician: Pupillary Reflex, Palpable Pulses, Response to Stimuli, Heart Tones and Breath Sounds Family: at bedside Name of Provider Notified: Nathalia Pierson NP Time Provider Notified: 15:50 Was code activated?: No Provider Requests Autopsy: No Family Requests Autopsy: No Paint Pourer Notified: Yes Date [facility] Notified of : 10/12/24 Time [facility] Notified of : 15:53 Advance directives: No Hospice patient?: Yes (Patient was made comfort by family and patient request. )
== END 2024-10-12 15:45 | disposition expired | DRG 393 ==
LOC: ANHED 10-03 07:15 → ANH3MEDSUR 10-03 13:32
PROVIDERS: Internal Medicine; Internal Medicine Gastroenterology; Admitting Provider Internal Medicine; Emergency Provider Emergency Medicine; PCP Family Medicine; Visit Provider Nurse Practitioner Acute Care
PROC: 0DJ08ZZ Inspection of Upper Intestinal Tract, Via Natural or Artificial Opening Endoscopic (ICD-10-PCS; CPT 45378; principal; 2024-10-11 15:30)
DX: K63.89 Other specified diseases of intestine (principal); E43 Unspecified severe protein-calorie malnutrition; Z68.1 Body mass index [BMI] 19.9 or less, adult; R65.10 Systemic inflammatory response syndrome (SIRS) of non-infectious origin without acute organ dysfunction; K52.89 Other specified noninfective gastroenteritis and colitis; K56.2 Volvulus; T40.605A Adverse effect of unspecified narcotics, initial encounter; I95.81 Postprocedural hypotension; D72.829 Elevated white blood cell count, unspecified; K59.03 Drug induced constipation; I73.9 Peripheral vascular disease, unspecified; J44.9 Chronic obstructive pulmonary disease, unspecified; I10 Essential (primary) hypertension; J98.4 Other disorders of lung; K57.30 Diverticulosis of large intestine without perforation or abscess without bleeding; K21.00 Gastro-esophageal reflux disease with esophagitis, without bleeding; K44.9 Diaphragmatic hernia without obstruction or gangrene; K22.70 Barrett's esophagus without dysplasia; E87.6 Hypokalemia; M81.0 Age-related osteoporosis without current pathological fracture; D64.9 Anemia, unspecified; E86.0 Dehydration; E78.2 Mixed hyperlipidemia; F17.210 Nicotine dependence, cigarettes, uncomplicated; Z90.49 Acquired absence of other specified parts of digestive tract; Z95.820 Peripheral vascular angioplasty status with implants and grafts
CPT/HCPCS: 36415; 71045; 71250; 74018; 74177; 74270; 80048; 80053; 80069; 80307; 81001; 82077; 82948; 83036; 83605; 83735; 84132; 85025; 85610; 85730; 86480; 86850; 86900; 86901; 87040; 87070; 87205; 87641; 88305; 96361; 96365; 96372; 96375; 97110; 97161; 97166; 97530; 97535; 99285; A9270; G0378; J0360; J1171; J1741; J1885; J1956; J2003; J2060; J2212; J2270; J2371; J2405; J2470; J2543; J3475; J3480; J7030; J7040; J7070; J7120; Q9967